=== PATIENT | female | born 1955 | race Caucasian/White ===

== ENCOUNTER 2020-05-31 13:47 | Inpatient (IN) | payer MEDICARE, SELFPAY ==
[2020-05-31] VITALS (17 sets, daily range): BP systolic 124–168; BP diastolic 71–107; PULSE 93–121; RESP 17–25; TEMP 36.7–37.1; O2SAT 88–100; BMI 32.8; BMI 34.8
--- NOTE | 2020-05-31 | LES_PTH ---
PATIENT: YONATHAN YOUNG LOC: [facility] U#:[id number] AGE/SX: 65/F ROOM: [facility] RE05/31/[address]: Dr. Rubén Manzo MD : 1955 BED: 1 DIS: 06/02/2020 SPEC #: [id number] RECD: 06/01/20 08:33 STATUS: NADINE PRAKASH #: [id number] BARRERA: 05/31/20 00:[address]: Rubén Manzo DEPT: SURGICAL PATHOLOGY RECD BY: Troy Martins ENTERED: 06/01/20 08:33 SP TYPE: Lesion OTHR DR: MD Dr. Alyce Spring MD Tissues: Skin of eyelid, NOS Procedures: Elastin Stain (control) Special Stain Group II Surgery Specimen Level IV HEADER OPERATION: Punch biopsy PRE-OP DIAGNOSIS: Possible vasculitis TISSUE SUBMITTED: Skin LLE MICROSCOPIC DIAGNOSIS Left lower extremity skin, punch biopsy: Consistent with leukocytoclastic vasculitis. See comment. AM:lina 06/02/20 COMMENT Sections show reticular and superficial dermis containing a mixed acute and chronic inflammatory cell infiltrateconsisting of primarily neutrophils, lymphocytes, rare eosinophils and rare plasma cells. Two superficial dermal vessels shows fibrinoid degeneration and neutrophilic infiltrates. The mid dermis contains mostly acute inflammation involving perineural tissue. 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 Clinical correlation is suggested. Elastin stain with matched control supports the above diagnosis. Case has been reviewed in consultation with Dr. Singh who concurs with the above diagnosis. IDC:LOEN MICROSCOPIC DESCRIPTION Slides are reviewed. GROSS DESCRIPTION Received is one container labeled with the patient's name and not further designated. The specimen consists of a punch biopsy of two pieces of hoffmann-white to hoffmann-pink skin each measuring 0.3 cm in diameter and 0.1 cm in depth. The entire specimen is submitted in one cassette. / LEON:lina 06/01/20 TC:2 CPT: 19775, 69122
--- NOTE | 2020-05-31 14:03 | EKG12_ITS ---
Test Reason : Blood Pressure : / mmHG Vent. Rate : 108 BPM Atrial Rate : 108 BPM P-R Int : 134 ms QRS Dur : 074 ms QT Int : 330 ms P-R-T Axes : 040 027 036 degrees QTc Int : 442 ms Sinus tachycardia Nonspecific ST abnormality Abnormal ECG Confirmed by DILLON WRIGHT, JAYLEN ([id number]), rewrite editor RAJINDER DRUMMOND ([id number]) on 06/03/2020 10:40:55 AM Referred By: YOKASTA Confirmed By:JAYLEN CARRANZA MD
--- NOTE | 2020-05-31 14:03 | RAD_ITS ---
STUDY: X-RAY CHEST REASON FOR EXAM: Female, 65 years old. Chest tightness. TECHNIQUE: Single AP portable view of the chest. COMPARISON: Prior comparison studies are not available for review at this time. FINDINGS: There is mild stranding/scarring in the right middle lobe. There is no demonstrated pleural abnormality. Normal size heart. Normal mediastinum and yani. Normal visualized pulmonary arteries. There is atherosclerotic calcification of the aortic arch. Normal visualized thoracic spine. Normal visualized ribs, clavicles, and shoulders. There is no demonstrated abnormality of the visualized soft tissue structures of the upper abdomen. RAD/Chest 1 View (Portable) IMPRESSION: No active pulmonary disease. Electronically Signed: Ata Rdz MD at 15:10 EDT Tel , Service support ,
--- NOTE | 2020-05-31 14:03 | ED.VIS.CHEST ---
History of Present Illness Chief Complaint: Chest Pain Informant: Patient Onset: Yesterday Timing: Continuous Quality: Tightness Location: Left Chest Current Severity: Mild Maximum Severity: Mild Worsened By: Exertion Relieved By: Rest Associated Symptoms: Dyspnea, Cough. Negative for: Nausea, Vomiting, Diaphoresis, Fever, Lightheadedness, Palpitations Narrative: Patient states she developed painful red spots on her right face and down into the anterior lateral aspect of her neck. This was about 10 days ago, lasted 2 or 3 days, and then faded and disappeared, but reappeared simultaneously on her distal left lower leg, then spreading to the other side, then up her legs to her abdomen where it has continued to be now. They are painful. Soon after starting on both legs, the areas by the ankles turned to large blisters that are more painful than the other areas. She denies any fevers or chills. She has had chest tightness and increased wheezing for the past 1 or 2 days, she has COPD and chronic dyspnea and chronic cough, the cough is been no worse or different, neither has her sputum production. She states she has had chest tightness when her COPD acts up in the past, however this is unusual because it is only on the left side. It is nonpleuritic. She has no history of DVT or PE. No GI symptoms. No neck stiffness. She had shingles remotely long ago. She is on no blood thinner. She was seen at urgent care last week and again today, today she was sent to the ER. They did not call and discussed with us, so I do not have any information from urgent care. Family member with the patient states they performed some type of blood test that took a couple days to come back. Patient presents during the national coronavirus emergency declaration/pandemic. She denies any known contact with anyone infected with COVID-19. She denies traveling out of the immediate area recently. About 1 month prior to the onset of this, the patient had dental extraction, was on antibiotics for an infection, she states she had about 17 sutures in her gums as a result. That all seemed to heal well afterwards. - Past Medical History (1) COPD (chronic obstructive pulmonary disease) Status: Chronic Past Medical History - Allergies and Home Meds Allergies/Adverse Reactions: Allergies No Known Allergies Allergy (Verified 05/31/20 13:55) Primary Care Physician: Alyce Luis MD [Primary Care Provider] - Lives: With Family Review of Systems General: Denies: Chills, Fever, Sweats Eyes: Denies: Visual changes - bilaterally, Diplopia ENT: Denies: Bilateral ear pain, Rhinorrhea, Sore throat Cardiovascular: Denies: Chest pain, Palpitations Respiratory: Reports: Dyspnea, Cough, Sputum, Dyspnea on exertion. Denies: Orthopnea Gastrointestinal: Denies: Abdominal pain, Nausea, Vomiting, Diarrhea, Melena, Hematochezia Genitourinary: Denies: Dysuria, Hematuria, Frequency Musculoskeletal: Reports: Extremity Pain - Where rash present. Denies: Back pain, Swelling Skin: Reports: Rash. Denies: Abscess Neurological: Denies: Headache, Weakness, Numbness Physical Exam Vital Signs/Narrative: Vital Signs Temp Pulse Resp BP Pulse Ox 05/31/20 14:03 98.6 F 114 H 25 H 158/83 H 97 05/31/20 13:48 98.6 F 114 H 25 H 158/83 H 97 Inital Vital Signs reviewed: Yes General: Well nourished, Well developed, Obese, No Acute Distress Head: Normocephalic, Atraumatic Eyes: Perrl, EOMI ENT: Moist mucous membranes, No rhinorrhea, - - Oropharynx normal, no lesions, erythema, asymmetry Neck: Supple, Nontender, No lymphadenopathy, No JVD Cardiovascular: Regular rate, Regular rhythm, No murmurs, Tachycardia - mild Respiratory: No distress, Chest nontender, Wheezing. Negative for: Rales, Rhonchi Abdomen: Soft, Nontender, Nondistended, Normal bowel sounds Back: Nontender, Normal Inspection Extremities: Tenderness - Both distal lower legs, Edema - Mild, both ankles, associated with wounds Skin: Normal color, No Trauma, Rash - Mostly nontender petechial rash from lower abdominal wall to the feet. More prominent on the lower extremities. Nothing on the back, nothing on the chest or face/neck except for 1 single tender lesion just to the right of the nasal bone on the face that is consistent with a small immature carbuncle that does not look ready to rupture. Distally in the lower extremities, almost symmetric, both ankles and the tops of the feet, are what appear to be wounds that are scabbed, broad-based, not raised, surrounded by blanching erythema that would be consistent with cellulitis. Neurological: Alert, Oriented x3, Cranial nerves II-XII grossly intact, Normal Strength, Normal Sensation, Normal Gait Psychological: Normal affect, Normal Mood Diagnostic/Tx/Re-eval Impressions Chest X-Ray 05/31/20 14:03 IMPRESSION: No active pulmonary disease. Electronically Signed: Ata Rdz MD at 15:10 EDT Tel , Service support , Chest CTA 05/31/20 14:32 IMPRESSION: 1. No pulmonary embolism 2. No acute vascular thoracic pathology. 3. No acute pulmonary findings. 4. Refer to ultrasonography of the lower terminates for more complete risk stratification of a patient at risk for venous thrombi embolic disease. Electronically Signed: Osman Sweeney at 15:21 EDT Tel , Service support , 05/31/20 14:03 Chest 1 View (Portable) [RAD] Stat 05/31/20 14:32 CTA Chest W/WO Contrast [CT] Stat Laboratory Results 05/31/20 05/31/20 05/31/20 13:55 13:55 13:55 WBC 11.9 H RBC 4.46 Hgb 13.1 Hct 41.0 MCV 91.9 MCH 29.4 MCHC 32.0 RDW Std Deviation 41.4 RDW Coeff of Sarah 12.4 Plt Count 437 MPV 10.0 Immature Gran % (Auto) 0.300 Neut % (Auto) 78.2 H Lymph % (Auto) 12.9 L Kimble % (Auto) 7.7 Eos % (Auto) 0.6 Baso % (Auto) 0.3 Absolute Neuts (auto) 9.3 H Absolute Lymphs (auto) 1.53 Nucleated RBC % 0 ESR 29 PT 13.3 INR 1.1 APTT 29.8 Fibrinogen 562 H D-Dimer Quant (PE/DVT) 5.62 H* Sodium 137 Potassium 3.8 Chloride 103 Carbon Dioxide 31.0 Anion Gap 3 L BUN 9 Creatinine 1.01 Estim Creat Clear Calc 53.28 Est GFR (MDRD) Af Amer 71 Est GFR (MDRD) Non-Af 58 L BUN/Creatinine Ratio 8.9 L Glucose 110 H Calcium 8.8 Total Bilirubin 0.50 AST 18 ALT 23 Alkaline Phosphatase 101 Troponin I < 0.015 C-React Prot Ext Range 83.50 H Total Protein 8.3 H Albumin 3.3 Globulin 5.0 H Albumin/Globulin Ratio 0.7 L COVID-19 ([facility]) 05/31/20 14:05 WBC RBC Hgb Hct MCV MCH MCHC RDW Std Deviation RDW Coeff of Sarah Plt Count MPV Immature Gran % (Auto) Neut % (Auto) Lymph % (Auto) Kimble % (Auto) Eos % (Auto) Baso % (Auto) Absolute Neuts (auto) Absolute Lymphs (auto) Nucleated RBC % ESR PT INR APTT Fibrinogen D-Dimer Quant (PE/DVT) Sodium Potassium Chloride Carbon Dioxide Anion Gap BUN Creatinine Estim Creat Clear Calc Est GFR (MDRD) Af Amer Est GFR (MDRD) Non-Af BUN/Creatinine Ratio Glucose Calcium Total Bilirubin AST ALT Alkaline Phosphatase Troponin I C-React Prot Ext Range Total Protein Albumin Globulin Albumin/Globulin Ratio COVID-19 ([facility]) Negative - Rhythm Strip Rhythm Strip: Sinus Tach Rate: 108 Ectopy: None - EKG Initial EKG Interpretation: No Acute Injury Pattern, Sinus Tachycardia, Non-Specific ST Changes Prior: No Prior Treatment: - - albuterol MDI puffs inhaled - Medical Decision Making Given the lab results above, patient does not have DIC or thrombocytopenia. Contrary to this, her fibrinogen is actually high, which may be acting as an acute phase reactant here. She also has a leukocytosis that is mild, a significantly elevated CRP, but an ESR that is within normal limits. The significance of this is unknown. Differential does include vasculitis, and possibly cellulitis in addition, but I do not think treating cellulitis will necessarily cure the petechial rash. Also in the differential diagnosis although quite delayed from her dental procedure, is invasive bacterial infection with bacteremia. Blood cultures were obtained, she was given empiric antibiotics, and I think admitting her to the hospital is indicated. Discussed with hospitalist. With regards to her chest, her symptoms are improved after albuterol, and I think more consistent with her COPD than anything else. Cardiac work-up so far unremarkable. Also of note, the patient has no specific COVID-19 risk, although her significant other is out and around the public and has not been ill, but since this rash is unusual, and resembles infrequent rash that has been associated with COVID-19, the test was sent and run stat, that returned negative. ED Disposition - Plan for ED Patient: Disposition: [facility] Diagnosis: Petechial rash, Cellulitis of both lower extremities, COPD (chronic obstructive pulmonary disease), SIRS (systemic inflammatory response syndrome) Referrals: Alyce Luis MD [Primary Care Provider] -
[2020-05-31 14:10] LABS: Absolute Lymphocyte Count 1.53 X10^3/uL (0.83-4.51); Absolute Neutrophil Count 9.3 X10^3/uL (2.0-7.7); Basophil# 0.04 X10^3/uL; Basophil% 0.3 % (0-1); Eosinophil# 0.07 X10^3/uL; Eosinophils% 0.6 % (0-5); Hemoglobin 13.1 g/dL (12.0-15.0); Lymphocyte # 1.53 X10^3/ul (4.0); Lymphocyte % 12.9 % (19-41); Mean Corpuscular Hgb 29.4 pg (27.0-32.0); Mean Corpuscular Volume 91.9 fL (81-99); Monocyte# 0.91 X10^3/uL; Monocyte% 7.7 % (0-10); NRBC Flagged by Analyzer 0 % (0-5); Neutrophil # 9.27 X10^3/uL (2.7-7.7); Neutrophil % 78.2 % (47-70); Platelet Count 437 K/mm3 (150-450); RBC Distribution Width CV 12.4 % (11.6-14.6); RBC Distribution Width SD 41.4 fl (35.1-43.9); Red Blood Count 4.46 M/mm3 (4.2-5.4); White Blood Count 11.9 K/mm3 (4.4-11.0)
[2020-05-31 14:14] LABS: International Normalized Ratio 1.1; Prothrombin Time (Protime)PT. 13.3 SECONDS (11.7-14.9)
[2020-05-31 14:15] LABS: Partial Thromboplast Time 29.8 Seconds (24.1-36.2)
[2020-05-31 14:16] LABS: Erythrocyte Sedimentation Rate 29 mm/hr (0-30); Fibrinogen 562 mg/dl (203-444)
[2020-05-31 14:27] LABS: ALB/GLOB Ratio 0.7 RATIO (0.9-2.4); AST(SGOT) 18 U/L (15-37); Alanine Aminotransfer ALT/SGPT 23 U/L (13-56); Albumin, Serum 3.3 g/dL (3.2-5.0); Alkaline Phosphatase 101 U/L (45-117); Anion Gap 3 (5-15); BUN 9 mg/dL (7-18); BUN/Creat Ratio 8.9 RATIO (10-20); Calcium,Total 8.8 mg/dL (8.5-10.1); Chloride 103 mmol/L (98-107); Creatinine, Serum 1.01 mg/dL (0.55-1.02); EST Glomerular Filtration Rate 58 mL/min (>60); Est Glom Filt Rate - Afr Amer 71 mL/min (>60); Estimated Creatinine Clearance 53.28 ml/min; Glucose 110 mg/dL (74-106); Potassium 3.8 mmol/L (3.5-5.1); Protein, Total 8.3 g/dL (6.4-8.2); Sodium Level 137 mmol/L (136-145)
[2020-05-31 14:29] LABS: D-Dimer Quantitative (DVT/PE) 5.62 FEU/ug/m (0.27-0.49)
--- NOTE | 2020-05-31 14:32 | CT_ITS ---
STUDY: CTA CHEST REASON FOR EXAM: Female, 65 years old. The chest pain, elevated d-dimer RADIATION DOSAGE (If Supplied By Facility): CTDIvol = ( 12.29 ) mGy, DLP = ( 540.37 ) mGycm TECHNIQUE: The examination was performed with the intravenous administration of 100 ML ISOVUE 370. Post-processing of the angiographic images was performed, with multiplanar reformation and 3D reconstruction. Individualized dose optimization techniques were used for this CT. COMPARISON: None. FINDINGS: Examination is mildly technically suboptimal. Diagnostic information is available. There is no acute or chronic pulmonary embolism. Aorta is of normal caliber. Lungs are clear. There is a simple right lung cyst. There is no pneumothorax, pulmonary edema or pleural effusions. Mediastinal contents are normal. Osseous structures are intact. Abdominal structures are unremarkable. CT/CTA Chest W/WO Contrast IMPRESSION: 1. No pulmonary embolism 2. No acute vascular thoracic pathology. 3. No acute pulmonary findings. 4. Refer to ultrasonography of the lower terminates for more complete risk stratification of a patient at risk for venous thrombi embolic disease. Electronically Signed: Osman Sweeney, at 15:21 EDT Tel , Service support ,
[2020-05-31] MEDS: 0.9% Normal Saline 1,000 ML 999 ML IV (14:57)
[2020-05-31 15:29] LABS: Probe Check PASS; Specimen Processing Control PASS
--- NOTE | 2020-05-31 16:33 | HP.PCM_ITS ---
<Tmaela Mejia - Last Filed: 05/31/20 17:26> Problem List (1) COPD (chronic obstructive pulmonary disease) Status: Chronic (2) History of tobacco abuse Status: Chronic History of Present Illness Date of Admission: 05/31/20 Chief Complaint: Lower extremity rash. The patient is a 65 year old F who presents to the emergency room due to worsening lower extremity rash. Patient states she had a dental extraction due to infection in the middle of March and was placed on antibiotics at that time. She followed up after 1 week and everything appeared stable. She denies ongoing dental or jaw pain. Approximately 10 days ago patient noticed rash on the right side of her face which went away and then began to form on both of her feet and has spread upwards extending to her mid abdomen. Rash began as a pinpoint appearance and has spread significantly. Patient states she has been seen at urgent care twice and had lab test done. She went to urgent care again today and was referred to the emergency room. Over the past 3 days she has developed large darkened areas around her feet and ankles and has had increased pain. Patient reports severe pain and also burning/itching sensation. She denies fever, chills. Reports this morning she began to have increased shortness of breath. Denies cough. Patient was tested for COVID at urgent care which was negative. She reports diarrhea which typically occurs in the morning and then resolves. Denies other associated symptoms. She denies drainage from her lower extremities. Denies new medications. She has a past medical history of COPD and former tobacco use. Denies other past medical history. Past Medical History Past Medical History (Chronic Problems): Chronic Problems COPD (chronic obstructive pulmonary disease) (Chronic) History of tobacco abuse (Chronic) Allergies No Known Allergies Allergy (Verified 05/31/20 13:55) Home Medications: Ambulatory Orders Medication Instructions Recorded Ascorbic Acid [Vitamin C] 1,000 mg PO DAILY 05/31/20 Calcium Carbonate/Vitamin D3 1 ea PO DAILY 05/31/20 [Calcium 600 + Vit D Tablet] Cholecalciferol (Vitamin D3) 2,000 unit PO DAILY 05/31/20 [Vitamin D3] Fluticasone/Umeclidin/Vilanter 1 ea IH Q6H PRN PRN 05/31/20 [Trelegy Ellipta 100-62.5-25] Garlic 1 ea PO DAILY 05/31/20 [place]-3 Fatty Acids/Fish Oil [Fish 1 ea PO DAILY 05/31/20 Oil 1,000 mg Capsule] Vitamin B Complex [B Complex] 1 ea PO DAILY 05/31/20 Surgical History: - - Hysterectomy. Exploratory abdominal surgery. 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 Paternal History Items: - - Denies known paternal medical history including cardiac history. Review of Systems Constitutional: Denies: Chills, Fever, Weight Change HEENT: Denies: Head Aches, Sinus Congestion, Sinus Drainage Cardiovascular: Denies: Chest Pain, Palpitations Respiratory: Reports: Shortness of Breath. Denies: Cough, Sputum production Gastrointestinal: Reports: Diarrhea. Denies: Abdominal Pain, Nausea, Vomiting Genitourinary: Denies: Dysuria Musculoskeletal: Denies: Joint Pain, Joint Tenderness Skin: Reports: - - Bilateral lower extremities extending to mid abdomen. Neurological: Denies: Numbness, Tingling, Focal weakness Psychiatric: Denies: Anxiety, Depression, Homicidal Ideations, Suicidal Ideations Hematologic/ Lymphatic: Denies: Easy Bruising, Easy Bleeding VTE Information - Inpt Only VTE Present on Admission: No VTE Mechan Device Prophylaxis: None VTE Pharm Prophylaxis ordered?: Yes Patient Problems: Active and Suspected Problems Petechial rash (Acute) Cellulitis of both lower extremities (Acute) SIRS (systemic inflammatory response syndrome) (Acute) - Physical Exam Vitals/I&O's: Vital Signs Temp Pulse Resp BP Pulse Ox 98.4 F 116 H 24 H 165/89 H 95 05/31/20 16:11 05/31/20 16:11 05/31/20 16:11 05/31/20 16:11 05/31/20 16:11 Oxygen Delivery Method Room Air Weight: 209 lb 10.554 oz Body Mass Index (BMI) 32.8 Intake and Output for Last 24 Hours 05/29/20 05/30/20 05/31/20 23:59 23:59 23:59 Intake Total 1000 / 1000 Balance 1000 / 1000 General: Alert, Oriented x3, Cooperative HEENT: Atraumatic, PERRLA, EOMI, Normocephalic Neck: Supple, No JVD, Negative Carotid Bruits Lungs: Diminished, Wheezes Cardiovascular: Regular Rhythm, Normal S1, Normal S2, No murmurs, Tachycardic Abdomen: Bowel Sounds Present, Soft, Non Tender, Non-Distended, Obese Extremities: No clubbing, No cyanosis, Edema - BLLE Skin: - - Bilateral lower extremity petechial rash extending to mid abdomen. Bilateral feet and ankle large patches with echar appearance. Musculoskeletal: No Tenderness to Palpation of Joints or Extremities Neurological: Cranial nerves II-XII grossly intact, Neuro grossly intact Psych/Mental Status: Normal Affect, Appropriate Laboratory Results 05/31/20 13:55: WBC 11.9 H, RBC 4.46, Hgb 13.1, Hct 41.0, MCV 91.9, MCH 29.4, MCHC 32.0, RDW Std Deviation 41.4, RDW Coeff of Sarah 12.4, Plt Count 437, MPV 10.0, Immature Gran % (Auto) 0.300, Neut % (Auto) 78.2 H, Lymph % (Auto) 12.9 L, [place] % (Auto) 7.7, Eos % (Auto) 0.6, Baso % (Auto) 0.3, Absolute Neuts (auto) 9.3 H, Absolute Lymphs (auto) 1.53, Nucleated RBC % 0, ESR 29 05/31/20 13:55: PT 13.3, INR 1.1, APTT 29.8, Fibrinogen 562 H, D-Dimer Quant (PE/DVT) 5.62 H* 05/31/20 13:55: Sodium 137, Potassium 3.8, Chloride 103, Carbon Dioxide 31.0, Anion Gap 3 L, BUN 9, Creatinine 1.01, Estim Creat Clear Calc 53.28, Est GFR (MDRD) Af Amer 71, Est GFR (MDRD) Non-Af 58 L, BUN/Creatinine Ratio 8.9 L, Glucose 110 H, Calcium 8.8, Total Bilirubin 0.50, AST 18, ALT 23, Alkaline Phosphatase 101, Troponin I < 0.015, C-React Prot Ext Range 83.50 H, Total Protein 8.3 H, Albumin 3.3, Globulin 5.0 H, Albumin/Globulin Ratio 0.7 L 05/31/20 14:05: COVID-19 ([facility]) Negative Assessment/Plan All Active Problems Petechial rash (Acute) Cellulitis of both lower extremities (Acute) SIRS (systemic inflammatory response syndrome) (Acute) 1. Bilateral lower extremity rash-septic emboli versus vasculitis? Unclear etiology. Punch biopsy performed in ER. Begin IV Ancef. D-dimer elevated. CTA negative for PE. Bilateral duplex ultrasound ordered stat. CRP elevated. ESR normal. IV steroids pending biopsy. Lactic acid ordered. JOSETTE, antistreptolysin, RA, cryoglobulins. Blood cultures pending. 2. SIRS-tachycardia, tachypnea, leukocytosis. Afebrile. Lactic acid ordered, pending. Obtain UA. CTA without acute process. Suspect secondary to #1. 3. Chronic COPD-no exacerbation. Albuterol and DuoNeb aerosols. 4. Former tobacco use-quit 3-1/2 years ago. Encouraged continued cessation. DVT prophylaxis- Lovenox sc This patient was seen by HUNTER Ramirez under the supervision of Dr. Manzo. <Rubén Manzo F - Last Filed: 05/31/20 18:45> History of Present Illness The patient is a 65 year old F [] Past Medical History Allergies No Known Allergies Allergy (Verified 05/31/20 13:55) - Physical Exam Vitals/I&O's: Vital Signs Temp Pulse Resp BP Pulse Ox 98.4 F 116 H 24 H 165/89 H 95 05/31/20 16:11 05/31/20 16:11 05/31/20 16:11 05/31/20 16:11 05/31/20 16:11 Oxygen Delivery Method Room Air Weight: 209 lb 3.499 oz Body Mass Index (BMI) 34.8 Intake and Output for Last 24 Hours 05/29/20 05/30/20 05/31/20 23:59 23:59 23:59 Intake Total 1112 / 1112 Balance 1112 / 1112 Laboratory Results 05/31/20 13:55: WBC 11.9 H, RBC 4.46, Hgb 13.1, Hct 41.0, MCV 91.9, MCH 29.4, MCHC 32.0, RDW Std Deviation 41.4, RDW Coeff of Sarah 12.4, Plt Count 437, MPV 10.0, Immature Gran % (Auto) 0.300, Neut % (Auto) 78.2 H, Lymph % (Auto) 12.9 L, [place] % (Auto) 7.7, Eos % (Auto) 0.6, Baso % (Auto) 0.3, Absolute Neuts (auto) 9.3 H, Absolute Lymphs (auto) 1.53, Nucleated RBC % 0, ESR 29 05/31/20 13:55: PT 13.3, INR 1.1, APTT 29.8, Fibrinogen 562 H, D-Dimer Quant (PE/DVT) 5.62 H* 05/31/20 13:55: Sodium 137, Potassium 3.8, Chloride 103, Carbon Dioxide 31.0, Anion Gap 3 L, BUN 9, Creatinine 1.01, Estim Creat Clear Calc 53.28, Est GFR (MDRD) Af Amer 71, Est GFR (MDRD) Non-Af 58 L, BUN/Creatinine Ratio 8.9 L, Glucose 110 H, Calcium 8.8, Total Bilirubin 0.50, AST 18, ALT 23, Alkaline Phosphatase 101, Troponin I < 0.015, C-React Prot Ext Range 83.50 H, Total Protein 8.3 H, Albumin 3.3, Globulin 5.0 H, Albumin/Globulin Ratio 0.7 L 05/31/20 13:55: Procalcitonin 0.07 05/31/20 14:05: COVID-19 ([facility]) Negative 05/31/20 17:30: Lactic Acid 1.0 05/31/20 17:30: Serum Cryoglobulins Pending 05/31/20 17:30: Rheumatoid Factor < 10.0 05/31/20 17:30: JOSETTE Screen Pending, CARINA-1 Antibody Pending, SS-A/Ro IgG Antibody Pending, SS-B/La IgG Antibody Pending, Sm (Berry) Antibody Pending, MATERIAL DISPATCHER Antibody Pending, Scl-70 Scleroderma Ab Pending, Double Strand DNA Ab Pending, Centromere B Antibody Pending 05/31/20 17:30: Anti-Streptolysin Titr Pending Current Medications Acetaminophen (Tylenol) 650 mg PO Q6H PRN PRN PRN Reason: Pain Score 1-10/Temp > 100.7 F Albuterol/Ipratropium (Duoneb) 3 ml INHALATION Q6HWA.RT JOSE Enoxaparin Sodium (Lovenox) 40 mg SC DAILY JOSE Sodium Chloride () 250 mls @ 15 mls/hr IV .[id number] PRN PRN Reason: Saline Flush Sodium Chloride () 250 mls @ 15 mls/hr IV .[id number] PRN PRN Reason: Additional IVPB Infusion Sodium Chloride () 1,000 mls @ 150 mls/hr IV .[id number] JOSE Ampicillin Sodium/Sulbactam (Sodium 3 gm/ Sodium Chloride) 112 mls @ 150 mls/hr IV Q6 JOSE Melatonin (Melatonin) 3 mg PO QHS PRN PRN PRN Reason: INSOMNIA Methylprednisolone (Solu-Medrol) 40 mg IV Q8 JOSE Morphine Sulfate () 2 mg IV Q3H PRN PRN PRN Reason: Pain Score 6-10/10 Ondansetron HCl (Zofran) 4 mg IV Q8H PRN PRN PRN Reason: NAUSEA/VOMITING Sodium Chloride () 10 - 40 ml IV UD PRN PRN Reason: SALINE FLUSH Addendum: Dr. Manzo I personally examined the patient and reviewed the chart. I agree with the above. 65-year-old female with a history of COPD presents to the hospital chest pain, tachypnea and wheezing. About a month ago she had dental extraction of her lower teeth and then about a week and a half ago she developed a small rash on her legs just isolated lesions and then on Monday she went to an urgent care where she was evaluated and sent home after she had a blood test, that blood test was an ESR which came back elevated at 53. Then 3 days ago her rash significantly worsened in her lower legs. She presents today with no fever but she has tachycardic and tachypneic she is oxygenating well though. There is concern that she had cellulitis versus a vasculitis. She had an elevated d- dimer so CTA of the chest was performed which was negative for PE and did not show any type of pneumonia. Her fibrinogen was also elevated however her platelets were normal. I did perform a 3 mm punch biopsy of 1 of her vascular lesions in her left lower extremity and she was started on Unasyn as well as steroids for her COPD and vasculitis and DuoNeb's. Also transfer her to the ICU as a precaution and continue with aggressive IV fluid. Not autoimmune panel is pending and will also obtain Doppler studies of her lower extremities. She does not have significant edema but the area of the rash around her ankles that is coalesced has some skin sloughing, the rash is also painful. It is nonblanching but it is somewhat raised and nodular. Renal function is stable, her initial troponin was unremarkable and her EKG was nonischemic. Inpatient E&M: 16618 Init Hosp L3
--- NOTE | 2020-05-31 16:36 | VDLE_ITS ---
Reason For Study: Elevated D-dimer RIGHT LEFT GSV is normal. GSV is normal. CFV is compressible, spontaneous, phasic, CFV is compressible, spontaneous, phasic, competent and demonstrates normal competent, and demonstrates normal augmentation. augmentation. FV is compressible, spontaneous, phasic, FV is compressible, spontaneous, phasic, competent and demonstrates normal competent and demonstrates normal augmentation. augmentation. POP V is compressible, spontaneous, phasic, POP V is compressible, spontaneous, phasic, competent and demonstrates normal competent and demonstrates normal augmentation. augmentation. T/P Trunk is compressible. T/P Trunk is compressible. PTV is compressible. PTV is compressible. RT PerV is compressible. LT PerV is compressible. Procedure Exam performed portable in patient room. A preliminary report was called and/or faxed to ICU. Interpretation Summary No evidence for acute deep venous thrombosis bilateral lower extremities with patent and compressible bilateral great saphenous veins. Ordering Physician: Tamela Meija Referring Physician: Alyce Luis Performed By: Iva Ogden RVT
[2020-05-31] MEDS: 0.9% Normal Saline 1,000 ML 150 ML IV (17:45)
[2020-05-31 18:17] LABS: Rheumatoid Factor < 10.0 IU/mL (<15)
[2020-05-31 18:32] LABS: Procalcitonin 0.07 ng/mL (0.00-0.09)
[2020-05-31] MEDS: Ipratropium/Albuterol Sulfate 3 ML AMPUL.NEB INHALATION (18:59)
[2020-05-31 19:06] LABS: Pathology Skin Biopsy SEE PATHOLOGY REPORT
[2020-05-31] MEDS: oxyCODONE 5 MG Tablet PO (20:51)
[2020-06-01] VITALS (23 sets, daily range): BP systolic 122–168; BP diastolic 64–93; PULSE 76–121; RESP 13–21; TEMP 36.6–37.3; O2SAT 93–96
[2020-06-01] MEDS: 0.9% Normal Saline 1,000 ML 150 ML IV ×4 (00:10→23:11)
[2020-06-01] MEDS: oxyCODONE 5 MG Tablet PO (04:37)
[2020-06-01 04:46] LABS: Absolute Lymphocyte Count 0.61 X10^3/uL (0.83-4.51); Absolute Neutrophil Count 7.6 X10^3/uL (2.0-7.7); Basophil# 0.01 X10^3/uL; Basophil% 0.1 % (0-1); Hemoglobin 11.2 g/dL (12.0-15.0); Lymphocyte # 0.61 X10^3/ul (4.0); Lymphocyte % 7.3 % (19-41); Mean Corpuscular Hgb 29.6 pg (27.0-32.0); Mean Corpuscular Volume 92.3 fL (81-99); Monocyte% 1.2 % (0-10); NRBC Flagged by Analyzer 0 % (0-5); Neutrophil # 7.63 X10^3/uL (2.7-7.7); Neutrophil % 90.9 % (47-70); Platelet Count 337 K/mm3 (150-450); RBC Distribution Width CV 12.6 % (11.6-14.6); RBC Distribution Width SD 42.5 fl (35.1-43.9); Red Blood Count 3.79 M/mm3 (4.2-5.4); White Blood Count 8.4 K/mm3 (4.4-11.0)
[2020-06-01 04:59] LABS: Anion Gap 4 (5-15); BUN 9 mg/dL (7-18); BUN/Creat Ratio 10.9 RATIO (10-20); Calcium,Total 8.1 mg/dL (8.5-10.1); Chloride 109 mmol/L (98-107); Creatinine, Serum 0.83 mg/dL (0.55-1.02); EST Glomerular Filtration Rate 73 mL/min (>60); Est Glom Filt Rate - Afr Amer 89 mL/min (>60); Estimated Creatinine Clearance 59.99 ml/min; Glucose 153 mg/dL (74-106); Potassium 4.8 mmol/L (3.5-5.1); Sodium Level 140 mmol/L (136-145)
--- NOTE | 2020-06-01 05:18 | NURSING ---
ed re chronic illness deferred till acute illness resolving
[2020-06-01] MEDS: Ipratropium/Albuterol Sulfate 3 ML AMPUL.NEB INHALATION ×3 (06:44→20:10)
--- NOTE | 2020-06-01 10:18 | NURSING ---
Was asked to assess bilateral lower legs. Pt states she had a dental procedure in March and all the lower teeth were removed. pt states she has an infection and the dentist had stated she did not need an antibiotic. pt states the dentist had said antibiotics are overused. pt had developed 3 small reddened areas to the right cheek/neck area. states those went away fairly quickly. pt then developed a rash to the lower legs. rash is a petechiae type rash with some darker areas near the ankles. asked if pt has been experiencing any joint pain and patient states only in ankles. states there is some discomfort when standing, but appears to be greatly improved from yesterday. pt states the redness and discomfort is much improved. steroids and antibiotics had been started yesterday. appears to be some sort of vasculitis. biopsy is pending. pt states she had been applying some ointment to the lower legs. pt unsure of name. will leave legs WILLIAM and dry at this time. does not appear to need debridement. will continue to monitor. see photos.
--- NOTE | 2020-06-01 10:35 | NURSING ---
skin photo: left lower leg
--- NOTE | 2020-06-01 10:36 | NURSING ---
skin photo: left lower leg
--- NOTE | 2020-06-01 10:36 | NURSING ---
skin photo: right lower leg
--- NOTE | 2020-06-01 10:37 | NURSING ---
skin photo: right lower leg
--- NOTE | 2020-06-01 10:50 | PCM.CONS.PUL ---
Problem List (1) COPD (chronic obstructive pulmonary disease) Status: Chronic Qualifiers: COPD type: emphysema Emphysema type: centrilobular Qualified Code(s): J43.2 - Centrilobular emphysema (2) Petechial rash Status: Acute (3) SIRS (systemic inflammatory response syndrome) Status: Acute (4) History of tobacco abuse Status: Chronic Reason for Consult Date of Consultation: 06/01/20 Reason for Consultation: Concern for vasculitis History of Present Illness: The patient is a 65 year old F, with past medical history listed below, who presented to [facility] on 05/31/2020 secondary to a painful lower extremity rash. Patient reportedly had dental work approximately 2 weeks ago and was placed on antibiotics. Patient states that she developed a petechial type rash on her neck and legs. These have convalesced into dark purple patches that were painful. Patient had noted some blisters on her ankles, but denied any fevers or chills. Patient had reported some loose bowel movements, chest tightness and increased wheezing for the previous 1 to 2 days. Patient reportedly does carry a diagnosis of COPD, but she is unaware of the severity. Patient describes chest pain with cough, but states this is nonpleuritic. Patient reportedly presented to the urgent care several times without improvement. Patient denied any neck stiffness, shingles or improvement in rash. Patient does not carry a diagnosis of penicillin allergy in the past. Patient did have sutures in her gums associated with her dental extraction. In the ER, patient was noted to be saturating well on nasal cannula oxygen. Patient did have some wheezing on exam and tachycardia at 114 bpm. Of note, patient had a petechial rash on the lower abdominal wall to the feet. Patient was noted to have symmetrical swelling of both ankles and feet. Chest x-ray was unremarkable and CTA of the chest showed no PE, but did have emphysematous changes on my review. Patient's laboratory work-up showed a leukocytosis of 11.9, elevated d-dimer at 5.62 and a creatinine of 1.01. CRP was elevated to 83.5 and COVID-19 was negative. Patient was given albuterol MDI and admitted to the intensive care unit. Patient did have a punch biopsy obtained. Since being in the intensive care unit, patient reports she has had 1 loose bowel movement. Patient states that she has had diarrhea intermittently for the last week or so. Patient did state that the diarrhea started at the same time as the petechial rash. Patient reports subjective improvement in the pain of the lower extremities. Patient has not had any fever overnight and has remained hemodynamically stable. Patient was on minimal nasal cannula oxygen to help with sleep. Review of systems otherwise negative from a constitutional, HEENT, respiratory, cardiovascular, GI, genitourinary, musculoskeletal, skin, neurologic, psychiatric and hematologic system unless stated above. Past Medical History Past Medical History (Chronic Problems): Chronic Problems COPD (chronic obstructive pulmonary disease) (Chronic) History of tobacco abuse (Chronic) Allergies No Known Allergies Allergy (Verified 05/31/20 13:55) Home Medications: Ambulatory Orders Medication Instructions Recorded Ascorbic Acid [Vitamin C] 1,000 mg PO DAILY 05/31/20 Calcium Carbonate/Vitamin D3 1 ea PO DAILY 05/31/20 [Calcium 600 + Vit D Tablet] Cholecalciferol (Vitamin D3) 2,000 unit PO DAILY 05/31/20 [Vitamin D3] Fluticasone/Umeclidin/Vilanter 1 ea IH Q6H PRN PRN 05/31/20 [Trelegy Ellipta 100-62.5-25] Garlic 1 ea PO DAILY 05/31/20 [place]-3 Fatty Acids/Fish Oil [Fish 1 ea PO DAILY 05/31/20 Oil 1,000 mg Capsule] Vitamin B Complex [B Complex] 1 ea PO DAILY 05/31/20 Surgical History: - - Hysterectomy. Exploratory abdominal surgery. 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 Paternal History Items: - - Denies known paternal medical history including cardiac history. Review of Systems Comment: See HPI Patient Problems: Active and Suspected Problems Petechial rash (Acute) Cellulitis of both lower extremities (Acute) SIRS (systemic inflammatory response syndrome) (Acute) Objective: CTA of the chest was personally reviewed. This did not show any pulmonary emboli, but did have diffuse emphysematous changes of the upper lobes. Lower extremity Dopplers are not suggestive of a DVT. Patient does not have an echocardiogram or pulmonary function test available for review at this time - Physical Exam Vitals/I&O's: Vital Signs Temp Pulse Resp BP Pulse Ox 37.2 C 104 H 21 H 128/64 H 94 06/01/20 04:00 06/01/20 10:00 06/01/20 10:00 06/01/20 10:00 06/01/20 10:00 Oxygen Flow Rate (L/min) 2 Oxygen Delivery Method Nasal Cannula Weight: 95.8 kg Body Mass Index (BMI) 34.8 Intake and Output for Last 24 Hours 05/30/20 05/31/20 06/01/20 23:59 23:59 23:59 Intake Total 2016 1431.5 / 1431.5 Output Total 1450 / 1450 Balance 2016 -18.5 / -18.5 General: Alert, Oriented x3, Cooperative, - - Mild distress secondary to lower extremity pain. Obese. Appears stated age. HEENT: Atraumatic, PERRLA, EOMI, Normocephalic, - - No scleral icterus or injection noted Oral: Moist Mucosa, No Gingival or Mucosal Lesions/ Ulcerations, - - No oral or perioral lesions appreciated. Neck: Supple, No JVD, No Nodes, No Nuchal Rigidity, Trachea Midline Lungs: No rhonchi, No rales, Diminished, Wheezes - Sporadic Cardiovascular: Regular rate, Regular Rhythm, Normal S1, Normal S2, No murmurs, No rub noted, No Gallop Abdomen: Bowel Sounds Present, Soft, Non Tender, Non-Distended, Obese Extremities: No clubbing, No cyanosis, Edema - Bilateral lower extremities Skin: - - Palpable purpura noted inferiorly with progression to petechial rash on the legs extending up to the umbilicus. Tender to touch. Purpura do have surrounding erythema that blanches with palpation Musculoskeletal: Tenderness - Palpation of the lower extremities Lymphatic: No Cervical, Supraclavicular, or Inguinal Adenopathy Neurological: Cranial nerves II-XII grossly intact, Neuro grossly intact, Motor Exam 5/5 strength throughout Psych/Mental Status: Alert and oriented to time, place, person, mood and affect Laboratory Results 05/31/20 13:55: WBC 11.9 H, RBC 4.46, Hgb 13.1, Hct 41.0, MCV 91.9, MCH 29.4, MCHC 32.0, RDW Std Deviation 41.4, RDW Coeff of Sarah 12.4, Plt Count 437, MPV 10.0, Immature Gran % (Auto) 0.300, Neut % (Auto) 78.2 H, Lymph % (Auto) 12.9 L, Bosque % (Auto) 7.7, Eos % (Auto) 0.6, Baso % (Auto) 0.3, Absolute Neuts (auto) 9.3 H, Absolute Lymphs (auto) 1.53, Nucleated RBC % 0, ESR 29 05/31/20 13:55: PT 13.3, INR 1.1, APTT 29.8, Fibrinogen 562 H, D-Dimer Quant (PE/DVT) 5.62 H* 05/31/20 13:55: Sodium 137, Potassium 3.8, Chloride 103, Carbon Dioxide 31.0, Anion Gap 3 L, BUN 9, Creatinine 1.01, Estim Creat Clear Calc 53.28, Est GFR (MDRD) Af Amer 71, Est GFR (MDRD) Non-Af 58 L, BUN/Creatinine Ratio 8.9 L, Glucose 110 H, Calcium 8.8, Total Bilirubin 0.50, AST 18, ALT 23, Alkaline Phosphatase 101, Troponin I < 0.015, C-React Prot Ext Range 83.50 H, Total Protein 8.3 H, Albumin 3.3, Globulin 5.0 H, Albumin/Globulin Ratio 0.7 L 05/31/20 13:55: Procalcitonin 0.07 05/31/20 14:05: COVID-19 ([facility]) Negative 05/31/20 17:30: Lactic Acid 1.0 05/31/20 17:30: Serum Cryoglobulins Pending 05/31/20 17:30: Rheumatoid Factor < 10.0 05/31/20 17:30: JOSETTE Screen Pending, CARINA-1 Antibody Pending, SS-A/Ro IgG Antibody Pending, SS-B/La IgG Antibody Pending, Sm (Berry) Antibody Pending, HEAD OF COMMISSION DEPARTMENT Antibody Pending, Scl-70 Scleroderma Ab Pending, Double Strand DNA Ab Pending, Centromere B Antibody Pending 05/31/20 17:30: Anti-Streptolysin Titr Pending 06/01/20 04:30: WBC 8.4, RBC 3.79 L, Hgb 11.2 L, Hct 35.0 L, MCV 92.3, MCH 29.6, MCHC 32.0, RDW Std Deviation 42.5, RDW Coeff of Sarah 12.6, Plt Count 337, MPV 10.0, Immature Gran % (Auto) 0.500, Neut % (Auto) 90.9 H, Lymph % (Auto) 7.3 L, Bosque % (Auto) 1.2, Eos % (Auto) 0.0, Baso % (Auto) 0.1, Absolute Neuts (auto) 7.6, Absolute Lymphs (auto) 0.61 L, Nucleated RBC % 0 06/01/20 04:30: Sodium 140, Potassium 4.8, Chloride 109 H, Carbon Dioxide 27.0, Anion Gap 4 L, BUN 9, Creatinine 0.83, Estim Creat Clear Calc 59.99, Est GFR (MDRD) Af Amer 89, Est GFR (MDRD) Non-Af 73, BUN/Creatinine Ratio 10.9, Glucose 153 H, Calcium 8.1 L Current Medications Acetaminophen (Tylenol) 650 mg PO Q6H PRN PRN PRN Reason: Pain Score 1-10/Temp > 100.7 F Albuterol/Ipratropium (Duoneb) 3 ml INHALATION Q6HWA.RT [facility] Last Admin: 06/01/20 06:44 Dose: 3 ml Documented by: Enoxaparin Sodium (Lovenox) 40 mg SC DAILY [facility] Sodium Chloride () 250 mls @ 15 mls/hr IV .[id number] PRN PRN Reason: Saline Flush Sodium Chloride () 250 mls @ 15 mls/hr IV .[id number] PRN PRN Reason: Additional IVPB Infusion Sodium Chloride () 1,000 mls @ 150 mls/hr IV .[id number] [facility] Last Admin: 06/01/20 08:04 Dose: 150 mls/hr Documented by: Ampicillin Sodium/Sulbactam (Sodium 3 gm/ Sodium Chloride) 112 mls @ 150 mls/hr IV Q6 [facility] Last Infusion: 06/01/20 08:05 Dose: Infused Documented by: Melatonin (Melatonin) 3 mg PO QHS PRN PRN PRN Reason: INSOMNIA Methylprednisolone (Solu-Medrol) 40 mg IV Q8 [facility] Last Admin: 06/01/20 06:16 Dose: 40 mg Documented by: Morphine Sulfate () 2 mg IV Q3H PRN PRN PRN Reason: Pain Score 6-10/10 Ondansetron HCl (Zofran) 4 mg IV Q8H PRN PRN PRN Reason: NAUSEA/VOMITING Oxycodone HCl (Oxyir) 5 mg PO Q6H PRN PRN PRN Reason: Pain Score 6-10/10 Last Admin: 06/01/20 04:37 Dose: 5 mg Documented by: Sodium Chloride () 10 - 40 ml IV UD PRN PRN Reason: SALINE FLUSH Clinical Impression(s) from Imaging Studies Chest X-Ray 05/31/20 14:03 IMPRESSION: No active pulmonary disease. Electronically Signed: Ata Rdz MD at 15:10 EDT Tel , Service support , Chest CTA 05/31/20 14:32 IMPRESSION: 1. No pulmonary embolism 2. No acute vascular thoracic pathology. 3. No acute pulmonary findings. 4. Refer to ultrasonography of the lower terminates for more complete risk stratification of a patient at risk for venous thrombi embolic disease. Electronically Signed: Osman Sweeney at 15:21 EDT Tel , Service support , Assessment/Plan All Active Problems Petechial rash (Acute) Cellulitis of both lower extremities (Acute) SIRS (systemic inflammatory response syndrome) (Acute) RECOMMENDATIONS: 1. Continue steroid therapy 2. Scheduled bronchodilators 3. Wean oxygen as tolerated 4. Obtain stool studies 5. Await skin biopsy 6. Likely okay to leave the intensive care unit IMPRESSIONS: 1. 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 Patient did have a punch biopsy obtained prior to initiation of steroid therapy. CRP is elevated and patient has reported some improvement following steroid therapy. Patient is not reporting vesicle formation previously. Rheumatologic work-up has been sent. Would send stool studies for possible Shiga toxin. Patient will likely require some coverage for hyperglycemia given steroid therapy. Patient does not have any oral lesions to be consistent with Parenll-Teo syndrome. Other differential would include scalded skin syndrome, dress syndrome and TEN syndrome. Possible involvement of dermatology. 2. COPD Patient is no longer smoking, but does have significant emphysematous changes noted on CT scan of the chest. Reasonable to continue with DuoNeb and albuterol aerosols. Steroids may help situation. Patient will have compromised pulmonary mechanics secondary to lower extremity pain. Patient should have outpatient work-up for quantification clarification of lung function and evaluation for need for supplemental oxygen. Patient is on triple therapy as an outpatient, but it is unclear if this was following pulmonary function testing for COPD/asthma overlap syndrome. Overnight oxygen may be secondary to untreated sleep apnea versus advanced COPD. Given negative lower extremity Dopplers and CTA of the chest, pulmonary embolism is unlikely. 3. SIRS secondary to #1 Agree with empiric antibiotics for now. Autoimmune work-up has been ordered and punch biopsy is currently being processed. UA has been ordered, but no results are available. 4. Advanced age/obesity Complicates care, management, recovery and prognosis. Unclear if patient follows regularly with her physician. Inpatient E&M: [id number] Init Hosp L3
[2020-06-01] MEDS: Enoxaparin 40 MG/0.4 ML Syringe SC (11:32)
--- NOTE | 2020-06-01 13:12 | CASEMGMT ---
RN CM Assessment Note Introduced role of CM to patient in room. Patient is sitting in chair, able to participate in assessment. She states she is independent @ home, does not use any DME including oxygen. Her and grandson are able to assist if needed. No concerns voiced re: discharge needs. Presentation: worsening lower extremity rash, darkened areas and pain. Diagnosis: unclear etiology-Septic emboli versus vasculitis PCP: Dr. Luis Specialists: Dr. Palmer- pulmonology. Patient has appointment next month Insurance: [facility] Preferred Pharmacy: [place], [place] Prescription Benefit: yes LNOK: , [place] Living Arrangements: Lives independently with her who is able to assist. Pt has 2 story home with basement. First floor set up for bedroom and bathroom. Tranportation: Patient drives, but family is able to assist if needed. DME: none. Pt will have get shower chair and cane if needed. Patient states her friend has a cane she can use. -If home oxygen is needed: [facility]. HHC: none. Declining Home Health at this time. States she has a nurse through her insurance she can call if she has any needs at home. SNF: none Patient DC Goals: Home on discharge DC Plan: Anticipate Home on discharge. Pt is currently on 2L [place]. Will need to follow for home oxygen needs. Pt is former smoker and has COPD history. CM available for discharge planning coordination. Contact CM for any concerns/needs that may arise. Mannie DOMINGUEZ RN ACM
--- NOTE | 2020-06-01 13:35 | PN_ITS ---
<Tamela Mejia - Last Filed: 06/01/20 13:50> Patient Problems: Active and Suspected Problems Petechial rash (Acute) Cellulitis of both lower extremities (Acute) SIRS (systemic inflammatory response syndrome) (Acute) Subjective: Patient seen and examined. Feels lower extremity redness and rash is improving. Denies further chest tightness or shortness of breath. - Physical Exam Vitals/I&O's: Vital Signs Temp Pulse Resp BP Pulse Ox 97.9 F 95 18 168/87 H 95 06/01/20 11:00 06/01/20 13:17 06/01/20 13:17 06/01/20 11:00 06/01/20 11:00 Oxygen Flow Rate (L/min) 2 Oxygen Delivery Method Nasal Cannula Weight: 211 lb 3.245 oz Body Mass Index (BMI) 34.8 Intake and Output for Last 24 Hours 05/30/20 05/31/20 06/01/20 23:59 23:59 23:59 Intake Total 2016 2063.5 / 206.5 Output Total 1849 / 1849 Balance 2016 213.5 / 213.5 General: Alert, Oriented x3, Cooperative HEENT: Atraumatic, PERRLA, EOMI, Normocephalic Neck: Supple, No JVD, Negative Carotid Bruits Lungs: Clear to auscultation, Diminished Cardiovascular: Regular rate, No murmurs Abdomen: Bowel Sounds Present, Soft, Non Tender, Non-Distended Extremities: No clubbing, No cyanosis, No edema, Capillary Refill Less than 3 Seconds Skin: - - Bilateral lower extremity petechial rash extending to mid abdomen. Bilateral feet and ankle large patches with echar appearance. Improved from prior assessment. Musculoskeletal: No Tenderness to Palpation of Joints or Extremities Neurological: Cranial nerves II-XII grossly intact, Neuro grossly intact Psych/Mental Status: Normal Affect, Appropriate Laboratory Results 05/31/20 13:55: WBC 11.9 H, RBC 4.46, Hgb 13.1, Hct 41.0, MCV 91.9, MCH 29.4, MCHC 32.0, RDW Std Deviation 41.4, RDW Coeff of Sarah 12.4, Plt Count 437, MPV 10.0, Immature Gran % (Auto) 0.300, Neut % (Auto) 78.2 H, Lymph % (Auto) 12.9 L, [place] % (Auto) 7.7, Eos % (Auto) 0.6, Baso % (Auto) 0.3, Absolute Neuts (auto) 9.3 H, Absolute Lymphs (auto) 1.53, Nucleated RBC % 0, ESR 29 05/31/20 13:55: PT 13.3, INR 1.1, APTT 29.8, Fibrinogen 562 H, D-Dimer Quant (PE/DVT) 5.62 H* 05/31/20 13:55: Sodium 137, Potassium 3.8, Chloride 103, Carbon Dioxide 31.0, Anion Gap 3 L, BUN 9, Creatinine 1.01, Estim Creat Clear Calc 53.28, Est GFR (MDRD) Af Amer 71, Est GFR (MDRD) Non-Af 58 L, BUN/Creatinine Ratio 8.9 L, Glucose 110 H, Calcium 8.8, Total Bilirubin 0.50, AST 18, ALT 23, Alkaline Phosphatase 101, Troponin I < 0.015, C-React Prot Ext Range 83.50 H, Total Protein 8.3 H, Albumin 3.3, Globulin 5.0 H, Albumin/Globulin Ratio 0.7 L 05/31/20 13:55: Procalcitonin 0.07 05/31/20 14:05: COVID-19 ([facility]) Negative 05/31/20 17:30: Lactic Acid 1.0 05/31/20 17:30: Serum Cryoglobulins Pending 05/31/20 17:30: Rheumatoid Factor < 10.0 05/31/20 17:30: JOSETTE Screen Pending, CARINA-1 Antibody Pending, SS-A/Ro IgG Antibody Pending, SS-B/La IgG Antibody Pending, Sm (Berry) Antibody Pending, ELEVATOR RUNNER Antibody Pending, Scl-70 Scleroderma Ab Pending, Double Strand DNA Ab Pending, Centromere B Antibody Pending 05/31/20 17:30: Anti-Streptolysin Titr Pending 06/01/20 04:30: WBC 8.4, RBC 3.79 L, Hgb 11.2 L, Hct 35.0 L, MCV 92.3, MCH 29.6, MCHC 32.0, RDW Std Deviation 42.5, RDW Coeff of Sarah 12.6, Plt Count 337, MPV 10.0, Immature Gran % (Auto) 0.500, Neut % (Auto) 90.9 H, Lymph % (Auto) 7.3 L, [place] % (Auto) 1.2, Eos % (Auto) 0.0, Baso % (Auto) 0.1, Absolute Neuts (auto) 7.6, Absolute Lymphs (auto) 0.61 L, Nucleated RBC % 0 06/01/20 04:30: Sodium 140, Potassium 4.8, Chloride 109 H, Carbon Dioxide 27.0, Anion Gap 4 L, BUN 9, Creatinine 0.83, Estim Creat Clear Calc 59.99, Est GFR (MDRD) Af Amer 89, Est GFR (MDRD) Non-Af 73, BUN/Creatinine Ratio 10.9, Glucose 153 H, Calcium 8.1 L Current Medications Acetaminophen (Tylenol) 650 mg PO Q6H PRN PRN PRN Reason: Pain Score 1-10/Temp > 100.7 F Albuterol/Ipratropium (Duoneb) 3 ml INHALATION Q6HWA.RT [facility] Last Admin: 06/01/20 13:16 Dose: 3 ml Documented by: Enoxaparin Sodium (Lovenox) 40 mg SC DAILY [facility] Last Admin: 06/01/20 11:32 Dose: 40 mg Documented by: Sodium Chloride () 250 mls @ 15 mls/hr IV .[id number] PRN PRN Reason: Saline Flush Sodium Chloride () 250 mls @ 15 mls/hr IV .[id number] PRN PRN Reason: Additional IVPB Infusion Sodium Chloride () 1,000 mls @ 150 mls/hr IV .Q6H40M [facility] Last Infusion: 06/01/20 12:18 Dose: 150 mls/hr Documented by: Ampicillin Sodium/Sulbactam (Sodium 3 gm/ Sodium Chloride) 112 mls @ 150 mls/hr IV Q6 [facility] Last Infusion: 06/01/20 12:19 Dose: Infused Documented by: Melatonin (Melatonin) 3 mg PO QHS PRN PRN PRN Reason: INSOMNIA Methylprednisolone (Solu-Medrol) 40 mg IV Q8 [facility] Last Admin: 06/01/20 06:16 Dose: 40 mg Documented by: Morphine Sulfate () 2 mg IV Q3H PRN PRN PRN Reason: Pain Score 6-10/10 Ondansetron HCl (Zofran) 4 mg IV Q8H PRN PRN PRN Reason: NAUSEA/VOMITING Oxycodone HCl (Oxyir) 5 mg PO Q6H PRN PRN PRN Reason: Pain Score 6-10/10 Last Admin: 06/01/20 04:37 Dose: 5 mg Documented by: Sodium Chloride () 10 - 40 ml IV UD PRN PRN Reason: SALINE FLUSH Medical Necessity - Tobacco Use Smoking Status: Former smoker Assessment/Plan All Active Problems Petechial rash (Acute) Cellulitis of both lower extremities (Acute) SIRS (systemic inflammatory response syndrome) (Acute) 1. Bilateral lower extremity rash-possible Henoch-Larisa?nlein purpura/vasculitis, however definitive etiology unclear. Punch biopsy results pending. Continue IV Ancef empirically. D-dimer elevated. CTA negative for PE. Bilateral duplex ultrasound negative for DVT. CRP elevated. ESR normal. Lactic acid normal. Autoimmune labs pending. Continue IV Solu-Medrol. Rash appears to be improving from prior assessment. Patient reports improvement in pain as well. Wound RN consult. 2. SIRS-tachycardia, tachypnea, leukocytosis. Afebrile. Lactic acid normal. Urine culture pending. CTA without acute process. Suspect secondary to #1. 3. Diarrhea-enteric pathogen panel pending. 4. Chronic COPD-no exacerbation. Albuterol and DuoNeb aerosols. 5. Former tobacco use-quit 3-1/2 years ago. Encouraged continued cessation. DVT prophylaxis- Lovenox sc This patient was seen by HUNTER Ramirez under the supervision of Dr. Manzo. <Rubén Manzo F - Last Filed: 06/01/20 15:15> - Physical Exam Vitals/I&O's: Vital Signs Temp Pulse Resp BP Pulse Ox 99.1 F 121 H 18 153/77 H 96 06/01/20 14:17 06/01/20 14:33 06/01/20 14:17 06/01/20 14:17 06/01/20 14:23 Oxygen Flow Rate (L/min) 2 Oxygen Delivery Method Room Air Weight: 211 lb 3.245 oz Body Mass Index (BMI) 34.8 Intake and Output for Last 24 Hours 05/30/20 05/31/2006/01/20 23:59 23:59 23:59 Intake Total 2016 2063.5 / 2062.5 Output Total 185 / 1849 Balance 2016 213.5 / 213.5 Laboratory Results 05/31/20 13:55: Procalcitonin 0.07 05/31/20 14:05: COVID-19 ([facility]) Negative 05/31/20 17:30: Lactic Acid 1.0 05/31/20 17:30: Serum Cryoglobulins Pending 05/31/20 17:30: Rheumatoid Factor < 10.0 05/31/20 17:30: JOSETTE Screen Pending, CARINA-1 Antibody Pending, SS-A/Ro IgG Antibody Pending, SS-B/La IgG Antibody Pending, Sm (Berry) Antibody Pending, ELEVATOR RUNNER Antibody Pending, Scl-70 Scleroderma Ab Pending, Double Strand DNA Ab Pending, Centromere B Antibody Pending 05/31/20 17:30: c-ANCA Antibody Pending, p-ANCA Antibody Pending, Complement C3 Pending, Complement C4 Pending, Anti-Streptolysin Titr Pending 06/01/20 04:30: WBC 8.4, RBC 3.79 L, Hgb 11.2 L, Hct 35.0 L, MCV 92.3, MCH 29.6, MCHC 32.0, RDW Std Deviation 42.5, RDW Coeff of Sarah 12.6, Plt Count 337, MPV 10.0, Immature Gran % (Auto) 0.500, Neut % (Auto) 90.9 H, Lymph % (Auto) 7.3 L, [place] % (Auto) 1.2, Eos % (Auto) 0.0, Baso % (Auto) 0.1, Absolute Neuts (auto) 7.6, Absolute Lymphs (auto) 0.61 L, Nucleated RBC % 0 06/01/20 04:30: Sodium 140, Potassium 4.8, Chloride 109 H, Carbon Dioxide 27.0, Anion Gap 4 L, BUN 9, Creatinine 0.83, Estim Creat Clear Calc 59.99, Est GFR (MDRD) Af Amer 89, Est GFR (MDRD) Non-Af 73, BUN/Creatinine Ratio 10.9, Glucose 153 H, Calcium 8.1 L Current Medications Acetaminophen (Tylenol) 650 mg PO Q6H PRN PRN PRN Reason: Pain Score 1-10/Temp > 100.7 F Albuterol/Ipratropium (Duoneb) 3 ml INHALATION Q6HWA.RT [facility] Last Admin: 06/01/20 13:16 Dose: 3 ml Documented by: Enoxaparin Sodium (Lovenox) 40 mg SC DAILY [facility] Last Admin: 06/01/20 11:32 Dose: 40 mg Documented by: Sodium Chloride () 250 mls @ 15 mls/hr IV .[id number] PRN PRN Reason: Saline Flush Sodium Chloride () 250 mls @ 15 mls/hr IV .[id number] PRN PRN Reason: Additional IVPB Infusion Sodium Chloride () 1,000 mls @ 150 mls/hr IV .Q6H40M [facility] Last Infusion: 06/01/20 12:18 Dose: 150 mls/hr Documented by: Ampicillin Sodium/Sulbactam (Sodium 3 gm/ Sodium Chloride) 112 mls @ 150 mls/hr IV Q6 [facility] Last Infusion: 06/01/20 12:19 Dose: Infused Documented by: Melatonin (Melatonin) 3 mg PO QHS PRN PRN PRN Reason: INSOMNIA Methylprednisolone (Solu-Medrol) 40 mg IV Q8 [facility] Last Admin: 06/01/20 13:42 Dose: 40 mg Documented by: Morphine Sulfate () 2 mg IV Q3H PRN PRN PRN Reason: Pain Score 6-10/10 Ondansetron HCl (Zofran) 4 mg IV Q8H PRN PRN PRN Reason: NAUSEA/VOMITING Oxycodone HCl (Oxyir) 5 mg PO Q6H PRN PRN PRN Reason: Pain Score 6-10/10 Last Admin: 06/01/20 04:37 Dose: 5 mg Documented by: Sodium Chloride () 10 - 40 ml IV UD PRN PRN Reason: SALINE FLUSH Addendum: Dr. Manzo I personally examined the patient and reviewed the chart. I agree with the above. 65-year-old female with a history of COPD presents to the hospital chest pain, tachypnea and wheezing. About a month ago she had dental extraction of her lower teeth and then about a week and a half ago she developed a small rash on her legs just isolated lesions and then on Monday she went to an urgent care where she was evaluated and sent home after she had a blood test, that blood test was an ESR which came back elevated at 53. Then 3 days ago her rash significantly worsened in her lower legs. She presents today with no fever but she has tachycardic and tachypneic she is oxygenating well though. There is concern that she had cellulitis versus a vasculitis. She had an elevated d- dimer so CTA of the chest was performed which was negative for PE and did not show any type of pneumonia. Her fibrinogen was also elevated however her pl atelets were normal. I did perform a 3 mm punch biopsy of 1 of her vascular lesions in her left lower extremity and she was started on Unasyn as well as steroids for her COPD and vasculitis and DuoNeb's. Also transfer her to the ICU as a precaution and continue with aggressive IV fluid. Not autoimmune panel is pending and will also obtain Doppler studies of her lower extremities. She does not have significant edema but the area of the rash around her ankles that is coalesced has some skin sloughing, the rash is also painful. It is nonblanching but it is somewhat raised and nodular. Renal function is stable, her initial troponin was unremarkable and her EKG was nonischemic. 06/01/2020: She is doing much better today, home mortgage disclosure act specialist agrees that this appears to be a vasculitis. We will continue with steroids and will add on to previous lab work complement levels as well as C&P-ANCA's for further classification stratification. Pathology report on the skin biopsy is pending. At the moment we will continue with Unasyn, Solu-Medrol, and duo nebs as she does have some slight wheezes. Also send a stool sample as she now states that the day before the rash that developed she ate out and had a couple episodes of diarrhea. Inpatient E&M: [id number] Subs Hosp L2
[2020-06-01] MEDS: 0.9% Saline Lock 10 ML Syringe IV (21:52)
[2020-06-02] MEDS: oxyCODONE 5 MG Tablet PO (00:01)
[2020-06-02 03:00] VITALS: PULSE 76
[2020-06-02 03:55] VITALS: BP 145/77; PULSE 88; RESP 18; TEMP 36.9; O2SAT 94
[2020-06-02 04:12] VITALS: PULSE 104
[2020-06-02] MEDS: 0.9% Saline Lock 10 ML Syringe IV (05:22)
[2020-06-02] MEDS: 0.9% Normal Saline 1,000 ML 150 ML IV (06:18)
[2020-06-02 07:14] VITALS: PULSE 90; RESP 18; O2SAT 94
[2020-06-02] MEDS: Ipratropium/Albuterol Sulfate 3 ML AMPUL.NEB INHALATION (07:14)
[2020-06-02] MEDS: Enoxaparin 40 MG/0.4 ML Syringe SC (08:06)
--- NOTE | 2020-06-02 08:37 | PCM.PN.INT ---
Subjective: Patient transferred out of the intensive care unit yesterday. Patient reports subjective improvement in lower extremities and has been able to stand and walk to the bathroom. Patient does report decreased sleep overnight associated with pain in the left greater than right lower extremity. General: Alert, Oriented x3, Cooperative, No apparent distress, Well developed, Well nourished, - - Obese. Speaking in full sentences. HEENT: Atraumatic, PERRLA, EOMI, Normocephalic, - - No scleral icterus or injection noted Oral: Moist Mucosa, No Gingival or Mucosal Lesions/ Ulcerations Neck: Supple, No JVD, No Nodes, Trachea Midline Lungs: Clear to auscultation, Normal air movement, No rhonchi, No wheeze, No rales, - - Symmetric expansion. No dullness to percussion. Cardiovascular: Regular rate, Regular Rhythm, Normal S1, Normal S2, No murmurs, No rub noted, No Gallop Abdomen: Bowel Sounds Present, Soft, Non Tender, Non-Distended Extremities: No clubbing, No cyanosis, Edema - Improved lower extremities Skin: - - Petechiae and purpura still present. Surrounding erythema around purpura is improved Musculoskeletal: Tenderness - Improved compared to yesterday Lymphatic: No Cervical, Supraclavicular, or Inguinal Adenopathy Neurological: Cranial nerves II-XII grossly intact, Neuro grossly intact Psych/Mental Status: Alert and oriented to time, place, person, mood and affect Vital Signs Temp Pulse Resp BP Pulse Ox 36.9 C 104 H 18 145/77 H 94 06/02/20 03:55 06/02/20 04:12 06/02/20 03:55 06/02/20 03:55 06/02/20 03:55 Oxygen Flow Rate (L/min) 2 Oxygen Delivery Method Room Air Weight: 99 kg Body Mass Index (BMI) 34.8 Intake and Output for Last 24 Hours 05/31/20 06/01/20 06/02/20 23:59 23:59 23:59 Intake Total 2016 4947.5 / 4947.5 1407 / 1407 Output Total 1849 / 1850 Balance 2016 3097.5 / 3097.5 1407 / 1407 Labs (Last 48 Hours) 05/31/20 05/31/20 05/31/20 13:55 13:55 13:55 WBC 11.9 H RBC 4.46 Hgb 13.1 Hct 41.0 MCV 91.9 MCH 29.4 MCHC 32.0 RDW Std Deviation 41.4 RDW Coeff of Sarah 12.4 Plt Count 437 MPV 10.0 Immature Gran % (Auto) 0.300 Neut % (Auto) 78.2 H Lymph % (Auto) 12.9 L [place] % (Auto) 7.7 Eos % (Auto) 0.6 Baso % (Auto) 0.3 Absolute Neuts (auto) 9.3 H Absolute Lymphs (auto) 1.53 Nucleated RBC % 0 ESR 29 PT 13.3 INR 1.1 APTT 29.8 Fibrinogen 562 H D-Dimer Quant (PE/DVT) 5.62 H* Sodium 137 Potassium 3.8 Chloride 103 Carbon Dioxide 31.0 Anion Gap 3 L BUN 9 Creatinine 1.01 Estim Creat Clear Calc 53.28 Est GFR (MDRD) Af Amer 71 Est GFR (MDRD) Non-Af 58 L BUN/Creatinine Ratio 8.9 L Glucose 110 H Lactic Acid Calcium 8.8 Total Bilirubin 0.50 AST 18 ALT 23 Alkaline Phosphatase 101 Troponin I < 0.015 C-React Prot Ext Range 83.50 H Total Protein 8.3 H Albumin 3.3 Globulin 5.0 H Albumin/Globulin Ratio 0.7 L Procalcitonin Serum Cryoglobulins Rheumatoid Factor JOSETTE Screen c-ANCA Antibody p-ANCA Antibody CARINA-1 Antibody SS-A/Ro IgG Antibody SS-B/La IgG Antibody Sm (Berry) Antibody PATTERN LEASE INSPECTOR Antibody Scl-70 Scleroderma Ab Double Strand DNA Ab Centromere B Antibody Complement C3 Complement C4 COVID-19 ([facility]) Anti-Streptolysin Titr 05/31/20 05/31/20 05/31/20 13:55 14:05 17:30 WBC RBC Hgb Hct MCV MCH MCHC RDW Std Deviation RDW Coeff of Asrah Plt Count MPV Immature Gran % (Auto) Neut % (Auto) Lymph % (Auto) [place] % (Auto) Eos % (Auto) Baso % (Auto) Absolute Neuts (auto) Absolute Lymphs (auto) Nucleated RBC % ESR PT INR APTT Fibrinogen D-Dimer Quant (PE/DVT) Sodium Potassium Chloride Carbon Dioxide Anion Gap BUN Creatinine Estim Creat Clear Calc Est GFR (MDRD) Af Amer Est GFR (MDRD) Non-Af BUN/Creatinine Ratio Glucose Lactic Acid 1.0 Calcium Total Bilirubin AST ALT Alkaline Phosphatase Troponin I C-React Prot Ext Range Total Protein Albumin Globulin Albumin/Globulin Ratio Procalcitonin 0.07 Serum Cryoglobulins Rheumatoid Factor JOSETTE Screen c-ANCA Antibody p-ANCA Antibody CARINA-1 Antibody SS-A/Ro IgG Antibody SS-B/La IgG Antibody Sm (Berry) Antibody PATTERN LEASE INSPECTOR Antibody Scl-70 Scleroderma Ab Double Strand DNA Ab Centromere B Antibody Complement C3 Complement C4 COVID-19 ([facility]) Negative Anti-Streptolysin Titr 05/31/20 05/31/20 05/31/20 17:30 17:30 17:30 WBC RBC Hgb Hct MCV MCH MCHC RDW Std Deviation RDW Coeff of Sarah Plt Count MPV Immature Gran % (Auto) Neut % (Auto) Lymph % (Auto) [place] % (Auto) Eos % (Auto) Baso % (Auto) Absolute Neuts (auto) Absolute Lymphs (auto) Nucleated RBC % ESR PT INR APTT Fibrinogen D-Dimer Quant (PE/DVT) Sodium Potassium Chloride Carbon Dioxide Anion Gap BUN Creatinine Estim Creat Clear Calc Est GFR (MDRD) Af Amer Est GFR (MDRD) Non-Af BUN/Creatinine Ratio Glucose Lactic Acid Calcium Total Bilirubin AST ALT Alkaline Phosphatase Troponin I C-React Prot Ext Range Total Protein Albumin Globulin Albumin/Globulin Ratio Procalcitonin Serum Cryoglobulins Pending Rheumatoid Factor < 10.0 JOSETTE Screen Pending c-ANCA Antibody p-ANCA Antibody CARINA-1 Antibody Pending SS-A/Ro IgG Antibody Pending SS-B/La IgG Antibody Pending Sm (Berry) Antibody Pending PATTERN LEASE INSPECTOR Antibody Pending Scl-70 Scleroderma Ab Pending Double Strand DNA Ab Pending Centromere B Antibody Pending Complement C3 Complement C4 COVID-19 ([facility]) Anti-Streptolysin Titr 05/31/20 06/01/20 06/01/20 17:30 04:30 04:30 WBC 8.4 RBC 3.79 L Hgb 11.2 L Hct 35.0 L MCV 92.3 MCH 29.6 MCHC 32.0 RDW Std Deviation 42.5 RDW Coeff of Sarah 12.6 Plt Count 337 MPV 10.0 Immature Gran % (Auto) 0.500 Neut % (Auto) 90.9 H Lymph % (Auto) 7.3 L [place] % (Auto) 1.2 Eos % (Auto) 0.0 Baso % (Auto) 0.1 Absolute Neuts (auto) 7.6 Absolute Lymphs (auto) 0.61 L Nucleated RBC % 0 ESR PT INR APTT Fibrinogen D-Dimer Quant (PE/DVT) Sodium 140 Potassium 4.8 Chloride 109 H Carbon Dioxide 27.0 Anion Gap 4 L BUN 9 Creatinine 0.83 Estim Creat Clear Calc 59.99 Est GFR (MDRD) Af Amer 89 Est GFR (MDRD) Non-Af 73 BUN/Creatinine Ratio 10.9 Glucose 153 H Lactic Acid Calcium 8.1 L Total Bilirubin AST ALT Alkaline Phosphatase Troponin I C-React Prot Ext Range Total Protein Albumin Globulin Albumin/Globulin Ratio Procalcitonin Serum Cryoglobulins Rheumatoid Factor JOSETTE Screen c-ANCA Antibody Pending p-ANCA Antibody Pending CARINA-1 Antibody SS-A/Ro IgG Antibody SS-B/La IgG Antibody Sm (Berry) Antibody PATTERN LEASE INSPECTOR Antibody Scl-70 Scleroderma Ab Double Strand DNA Ab Centromere B Antibody Complement C3 Pending Complement C4 Pending COVID-19 ([facility]) Anti-Streptolysin Titr Pending Medical Necessity - Tobacco Use Smoking Status: Former smoker Assessment/Plan All Active Problems Petechial rash (Acute) Cellulitis of both lower extremities (Acute) SIRS (systemic inflammatory response syndrome) (Acute) RECOMMENDATIONS: 1. Transition to prednisone therapy. 60 mg a day for 7 days then 20 mg a day for 7 days 2. Outpatient follow-up with dermatology 3. Walking oximetry prior to discharge 4. Obtain stool studies 5. Await skin biopsy 6. Okay to discharge from a pulmonary perspective. Could follow-up as an outpatient for pulmonary function testing if requested IMPRESSIONS: 1. 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 Patient did have a punch biopsy obtained prior to initiation of steroid therapy. CRP is elevated and patient has reported some improvement following steroid therapy. Rheumatologic work-up has been sent. Would send stool studies for possible Shiga toxin. Patient will likely require some coverage for hyperglycemia given steroid therapy. Patient does not have any oral lesions to be consistent with Parnell-Teo syndrome. Patient has responded well to steroid therapy. Recommend continuing prednisone 60 mg a day for 7 days, then 20 mg a day for 7 days then off. Patient will need to follow-up with PCP. Dr. Caldera is willing to see the patient as an outpatient to help, but will need records sent to his office as he was not consulted in the hospital. 2. COPD Patient is no longer smoking, but does have significant emphysematous changes noted on CT scan of the chest. Reasonable to continue with DuoNeb and albuterol aerosols. Steroids may help situation. Patient will have compromised pulmonary mechanics secondary to lower extremity pain. Patient should have outpatient work-up for quantification clarification of lung function and evaluation for need for supplemental oxygen. Patient is on triple therapy as an outpatient, but it is unclear if this was following pulmonary function testing for COPD/asthma overlap syndrome. Overnight oxygen may be secondary to untreated sleep apnea versus advanced COPD. Given negative lower extremity Dopplers and CTA of the chest, pulmonary embolism is unlikely. 3. SIRS secondary to #1 Likely okay to discontinue antibiotics from my perspective. Autoimmune work-up has been ordered and punch biopsy is currently being processed. UA has been ordered, but no results are available. 4. Advanced age/obesity Complicates care, management, recovery and prognosis. Unclear if patient follows regularly with her physician. Inpatient E&M: [id number] Subs Hosp L2
[2020-06-02 10:28] VITALS: BP 158/81; PULSE 105; RESP 18; TEMP 35.5; O2SAT 94
--- NOTE | 2020-06-02 11:24 | NURSING ---
In to reassess bilateral lower legs. the redness is now nearly gone. patient still has the dark red/purple areas near the ankles. small fluid filled blisters noted. the blisters most likely related to the edema. patient states she is more comfortable with legs down. pt states she would not be able to tolerate compression wraps. no drainage noted at this time. no sign of infection noted. pt states she feels much better and the discomfort in her ankles has also greatly improved. the steroids appear to be working well. pt is hoping to be discharged home today and states she will be following up with Dr Caldera after discharge.
--- NOTE | 2020-06-02 11:38 | PCM.DC ---
- Discharge Diagnoses Current Active Problems: Current Active and Chronic Problems COPD (chronic obstructive pulmonary disease) (Chronic) Petechial rash (Acute) Cellulitis of both lower extremities (Acute) SIRS (systemic inflammatory response syndrome) (Acute) History of tobacco abuse (Chronic) You will use the following diet at home:: No restrictions Discharge Activity: Return to Normal Activity Call your doctor if you observe: Fever of 101 or Higher, Uncontrolled pain, - - Worsening rash Allergies/Adverse Reactions: Allergies No Known Allergies Allergy (Verified 05/31/20 13:55) Medications to take at Discharge Ascorbic Acid [Vitamin C] 1,000 mg PO DAILY 05/31/20 Calcium Carbonate/Vitamin D3 [Calcium 600 + Vit D Tablet] 1 ea PO DAILY 05/31/20 Cholecalciferol (Vitamin D3) [Vitamin D3] 2,000 unit PO DAILY 05/31/20 Fluticasone/Umeclidin/Vilanter [Trelegy Ellipta 100-62.5-25] 1 ea IH Q6H PRN PRN 05/31/20 Garlic 1 ea PO DAILY 05/31/20 [place]-3 Fatty Acids/Fish Oil [Fish Oil 1,000 mg Capsule] 1 ea PO DAILY 05/31/20 Vitamin B Complex [B Complex] 1 ea PO DAILY 05/31/20 Oxycodone [Oxyir] 5 mg PO Q6H PRN PRN 5 Days #10 tablet 06/02/20 predniSONE tablet 60 mg PO DAILY@0800 #28 tab 06/02/20 The following prescriptions were given: Oxycodone [Oxyir] 5 mg PO Q6H PRN PRN 5 Days #10 tablet PRN Reason: Pain Score 6-10/10 Transmission Status: Sent to [id number] predniSONE tablet 60 mg PO DAILY@0800 #28 tab Transmission Status: Pending to [id number] Primary Care Physician: Alyce Luis MD [Primary Care Provider] - Please follow up with your Primary Care Physician in: 1 Week Test Results: Test results from this visit will be discussed in further detail at your follow-up appointment, if applicable. Please Follow Up With: Sukhwinder Caldera MD When: 2-3 days Proposed Discharge Date: 06/02/20
--- NOTE | 2020-06-02 11:42 | PCM.DC.SUM ---
<Tamela Mejia - Last Filed: 06/02/20 11:49> Discharge Date and Diagnosis Date of Admission: 05/31/20 Date of Discharge: 06/02/20 - Primary Discharge Diagnosis Acute Problems: Active Problems 1. Suspected vasculitis 2. SIRS 2/2 #1 3. Diarrhea, self-limited- resolved 4. Chronic COPD 5. Former tobacco use - Secondary Discharge Diagnosis Chronic Problems: Chronic Problems COPD (chronic obstructive pulmonary disease) (Chronic) History of tobacco abuse (Chronic) Hospital Course and Treatment Imaging Results: Diagnostic Data Chest X-Ray 05/31/20 14:03 IMPRESSION: No active pulmonary disease. Electronically Signed: Ata Rdz MD at 15:10 EDT Tel , Service support , Chest CTA 05/31/20 14:32 IMPRESSION: 1. No pulmonary embolism 2. No acute vascular thoracic pathology. 3. No acute pulmonary findings. 4. Refer to ultrasonography of the lower terminates for more complete risk stratification of a patient at risk for venous thrombi embolic disease. 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 1. 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 Punch biopsy results pending. D-dimer elevated. CTA negative for PE. Bilateral duplex ultrasound negative for DVT. CRP elevated. ESR normal. Lactic acid normal. Autoimmune labs pending. IV Solu-Medrol during admission. Lower extremity rash significantly improved. Continues to have large darkened areas around ankles with mild blistering. Continue prednisone at discharge 60 mg daily for 7 days then 20 mg daily for 7 days. Antibiotics discontinued. Follow-up with dermatology in 2 to 3 days, Dr. Sukhwinder Caldera. 2. SIRS-tachycardia, tachypnea, leukocytosis. Afebrile. Lactic acid normal. CTA without acute process. Secondary to #1. 3. Awegrupz-ajmz-braypgvu. No further diarrhea during admission. 4. Chronic COPD-no exacerbation. Albuterol and DuoNeb aerosols. Patient follows with Dr. Rodriguez, [facility] pulmonary medicine. 5. Former tobacco use-quit 3-1/2 years ago. Encouraged continued cessation. General: Alert, Oriented x3, Cooperative HEENT: Atraumatic, PERRLA, EOMI, Normocephalic Neck: Supple, No JVD, Negative Carotid Bruits Lungs: Clear to auscultation, Diminished Cardiovascular: Regular rate, No murmurs Abdomen: Bowel Sounds Present, Soft, Non Tender, Non-Distended Extremities: No clubbing, No cyanosis, No edema, Capillary Refill Less than 3 Seconds Skin: - - Bilateral lower extremity petechial rash extending to mid abdomen. Petechial areas significantly improved. Bilateral feet and ankle large patches with echar appearance. Improved from prior assessment. Mild blistering. Musculoskeletal: No Tenderness to Palpation of Joints or Extremities Neurological: Cranial nerves II-XII grossly intact, Neuro grossly intact Psych/Mental Status: Normal Affect, Appropriate Patient seen and examined prior to discharge. Physical assessment as noted above. Patient is stable for discharge with follow up recommendations as noted above. This patient was seen by HUNTER Ramirez under the supervision of Dr. Manzo. - Physical Exam Vitals/I&O's: Vital Signs Temp Pulse Resp BP Pulse Ox 95.9 F L 105 H 18 158/81 H 94 06/02/20 10:28 06/02/20 10:28 06/02/20 10:28 06/02/20 10:28 06/02/20 10:28 Oxygen Flow Rate (L/min) 2 Oxygen Delivery Method Room Air Weight: 218 lb 4.122 oz Body Mass Index (BMI) 34.8 Intake and Output for Last 24 Hours 05/31/20 06/01/20 06/02/20 23:59 23:59 23:59 Intake Total 2016 4947.5 / 4947.5 1407 / 1407 Output Total 1850 / 1850 Balance 2016 3097.5 / 3097.5 1407 / 1407 Microbiology Past 72 Hours 05/31/20 13:55 Blood Culture (Wb) - Anticubital Right Blood Culture - Preliminary No growth in 48 hours. 05/31/20 14:30 Blood Culture (Wb) - Anticubital Right Blood Culture - Preliminary No growth in 48 hours. Laboratory Results 05/31/20 17:30: c-ANCA Antibody Pending, p-ANCA Antibody Pending, Complement C3 Pending, Complement C4 Pending, Anti-Streptolysin Titr Pending Current Medications Acetaminophen (Tylenol) 650 mg PO Q6H PRN PRN PRN Reason: Pain Score 1-10/Temp > 100.7 F Albuterol/Ipratropium (Duoneb) 3 ml INHALATION Q6HWA.RT [facility] Last Admin: 06/02/20 07:14 Dose: 3 ml Documented by: Enoxaparin Sodium (Lovenox) 40 mg SC DAILY [facility] Last Admin: 06/02/20 08:06 Dose: 40 mg Documented by: Sodium Chloride () 250 mls @ 15 mls/hr IV .[id number] PRN PRN Reason: Saline Flush Sodium Chloride () 250 mls @ 15 mls/hr IV .[id number] PRN PRN Reason: Additional IVPB Infusion Sodium Chloride () 1,000 mls @ 150 mls/hr IV .Q6H40M [facility] Last Admin: 06/02/20 06:18 Dose: 150 mls/hr Documented by: Ampicillin Sodium/Sulbactam (Sodium 3 gm/ Sodium Chloride) 112 mls @ 150 mls/hr IV Q6 [facility] Last Infusion: 06/02/20 06:08 Dose: Infused Documented by: Melatonin (Melatonin) 3 mg PO QHS PRN PRN PRN Reason: INSOMNIA Morphine Sulfate () 2 mg IV Q3H PRN PRN PRN Reason: Pain Score 6-10/10 Ondansetron HCl (Zofran) 4 mg IV Q8H PRN PRN PRN Reason: NAUSEA/VOMITING Oxycodone HCl (Oxyir) 5 mg PO Q6H PRN PRN PRN Reason: Pain Score 6-10/10 Last Admin: 06/02/20 00:01 Dose: 5 mg Documented by: Prednisone () 60 mg PO DAILY@0800 [facility] Sodium Chloride () 10 - 40 ml IV UD PRN PRN Reason: SALINE FLUSH Last Admin: 06/02/20 05:22 Dose: 10 ml Documented by: Discharge Diet: No Restrictions Discharge Activity: Return to Normal Activity Call your doctor if you observe: Fever of 101 or Higher, Uncontrolled pain, - - Worsening rash Home Medications: Medications to take at Discharge Ascorbic Acid [Vitamin C] 1,000 mg PO DAILY 05/31/20 Calcium Carbonate/Vitamin D3 [Calcium 600 + Vit D Tablet] 1 ea PO DAILY 05/31/20 Cholecalciferol (Vitamin D3) [Vitamin D3] 2,000 unit PO DAILY 05/31/20 Fluticasone/Umeclidin/Vilanter [Trelegy Ellipta 100-62.5-25] 1 ea IH Q6H PRN PRN 05/31/20 Garlic 1 ea PO DAILY 05/31/20 [place]-3 Fatty Acids/Fish Oil [Fish Oil 1,000 mg Capsule] 1 ea PO DAILY 05/31/20 Vitamin B Complex [B Complex] 1 ea PO DAILY 05/31/20 Oxycodone [Oxyir] 5 mg PO Q6H PRN PRN 5 Days #10 tab 06/02/20 predniSONE tablet 60 mg PO DAILY@0800 #28 tab 06/02/20 Following Prescriptions Were Given to Patient: Oxycodone [Oxyir] 5 mg PO Q6H PRN PRN 5 Days #10 tab PRN Reason: Pain Score 6-10/10 Transmission Status: Received by [facility] [id number] predniSONE tablet 60 mg PO DAILY@0800 #28 tab Transmission Status: Received by [id number] Primary Care Physician: Alyce Luis MD [Primary Care Provider] - Please follow up with your Primary Care Physician in: 1 Week Please Follow Up With: Sukhwinder Caldera MD When: 2-3 days Disposition: Home Minutes spent on discharge:: 35 Patient Condition:: Stable Medical Necessity - Tobacco Use Smoking Status: Former smoker Meaningful Use Info Meaningful Use Diagnoses (Choose all that apply): None applicable <Rubén Manzo - Last Filed: 06/02/20 12:38> Discharge Date and Diagnosis - Secondary Discharge Diagnosis Chronic Problems: Chronic Problems COPD (chronic obstructive pulmonary disease) (Chronic) History of tobacco abuse (Chronic) Hospital Course and Treatment Consultations 06/01/20 08:20 Consult: Onc/Wound/fruit farmworker Routine Comment: Summary of Care Provided: The patient is a 65 year old F [] - Physical Exam Vitals/I&O's: Vital Signs Temp Pulse Resp BP Pulse Ox 95.9 F L 105 H 18 158/81 H 94 06/02/20 10:28 06/02/20 10:28 06/02/20 10:28 06/02/20 10:28 06/02/20 10:28 Oxygen Flow Rate (L/min) 2 Oxygen Delivery Method Room Air Weight: 218 lb 4.122 oz Body Mass Index (BMI) 34.8 Intake and Output for Last 24 Hours 05/31/20 06/01/20 06/02/20 23:59 23:59 23:59 Intake Total 2016 4947.5 / 4947.5 2246 / 2246 Output Total 1849 / 1849 Balance 2016 3097.5 / 3097.5 224 / 224 Microbiology Past 72 Hours 05/31/20 13:55 Blood Culture (Wb) - Anticubital Right Blood Culture - Preliminary No growth in 48 hours. 05/31/20 14:30 Blood Culture (Wb) - Anticubital Right Blood Culture - Preliminary No growth in 48 hours. Laboratory Results 05/31/20 17:30: c-ANCA Antibody Pending, p-ANCA Antibody Pending, Complement C3 Pending, Complement C4 Pending, Anti-Streptolysin Titr Pending Current Medications Acetaminophen (Tylenol) 650 mg PO Q6H PRN PRN PRN Reason: Pain Score 1-10/Temp > 100.7 F Albuterol/Ipratropium (Duoneb) 3 ml INHALATION Q6HWA.RT [facility] Last Admin: 06/02/20 07:14 Dose: 3 ml Documented by: Enoxaparin Sodium (Lovenox) 40 mg SC DAILY [facility] Last Admin: 06/02/20 08:06 Dose: 40 mg Documented by: Sodium Chloride () 250 mls @ 15 mls/hr IV .[id number] PRN PRN Reason: Saline Flush Sodium Chloride () 250 mls @ 15 mls/hr IV .[id number] PRN PRN Reason: Additional IVPB Infusion Sodium Chloride () 1,000 mls @ 150 mls/hr IV .Q6H40M [facility] Last Infusion: 06/02/20 11:54 Dose: Infused Documented by: Ampicillin Sodium/Sulbactam (Sodium 3 gm/ Sodium Chloride) 112 mls @ 150 mls/hr IV Q6 [facility] Last Infusion: 06/02/20 06:08 Dose: Infused Documented by: Melatonin (Melatonin) 3 mg PO QHS PRN PRN PRN Reason: INSOMNIA Morphine Sulfate () 2 mg IV Q3H PRN PRN PRN Reason: Pain Score 6-10/10 Ondansetron HCl (Zofran) 4 mg IV Q8H PRN PRN PRN Reason: NAUSEA/VOMITING Oxycodone HCl (Oxyir) 5 mg PO Q6H PRN PRN PRN Reason: Pain Score 6-10/10 Last Admin: 06/02/20 00:01 Dose: 5 mg Documented by: Prednisone () 60 mg PO DAILY@0800 [facility] Last Admin: 06/02/20 11:54 Dose: 60 mg Documented by: Sodium Chloride () 10 - 40 ml IV UD PRN PRN Reason: SALINE FLUSH Last Admin: 06/02/20 05:22 Dose: 10 ml Documented by: Addendum: Dr. Manzo I personally examined the patient and reviewed the chart. I agree with the above. 65-year-old female with a history of COPD presents to the hospital chest pain, tachypnea and wheezing. About a month ago she had dental extraction of her lower teeth and then about a week and a half ago she developed a small rash on her legs just isolated lesions and then on Monday she went to an urgent care where she was evaluated and sent home after she had a blood test, that blood test was an ESR which came back elevated at 53. Then 3 days ago her rash significantly worsened in her lower legs. She presents today with no fever but she has tachycardic and tachypneic she is oxygenating well though. There is concern that she had cellulitis versus a vasculitis. She had an elevated d-dimer so CTA of the chest was performed which was negative for PE and did not show any type of pneumonia. Her fibrinogen was also elevated however her platelets were normal. I did perform a 3 mm punch biopsy of 1 of her vascular lesions in her left lower extremity and she was started on Unasyn as well as steroids for her COPD and vasculitis and DuoNeb's. Also transfer her to the ICU as a precaution and continue with aggressive IV fluid. Not autoimmune panel is pending and will also obtain Doppler studies of her lower extremities. She does not have significant edema but the area of the rash around her ankles that is coalesced has some skin sloughing, the rash is also painful. It is nonblanching but it is somewhat raised and nodular. Renal function is stable, her initial troponin was unremarkable and her EKG was nonischemic. 06/01/2020: She is doing much better today, hand bindery assembly worker agrees that this appears to be a vasculitis. We will continue with steroids and will add on to previous lab work complement levels as well as C&P-ANCA's for further classification stratification. Pathology report on the skin biopsy is pending. At the moment we will continue with Unasyn, Solu-Medrol, and duo nebs as she does have some slight wheezes. Also send a stool sample as she now states that the day before the rash that developed she ate out and had a couple episodes of diarrhea. 06/02/2020: Feeling much better today the rash looks significantly improved. She has decreased pain in her lower extremities. Pathology from the punch biopsy is pending, C3 and C4 complement levels as well as a c-ANCA and p-ANCA were obtained yesterday. She will need to be on steroids for at least 2 weeks and will follow up with dermatology as an outpatient. Discussed with her that she will be notified when results come back from the biopsy. At this point she is remained afebrile, and I do not believe that there is any major source of infection therefore her antibiotics can be discontinued. Inpatient E&M: [id number] Disch Hosp
[2020-06-02] MEDS: predniSONE 20 MG Tablet 60 MG PO (11:54)
--- NOTE | 2020-06-02 11:55 | CASEMGMT ---
Pt has been on room air and per Brianda MARTÍNEZ, pt has been up in room with no SOB or concerns for home O2 at this time. Eh MARTÍNEZ CM
--- NOTE | 2020-06-02 12:13 | PHA.DC.MR ---
Pharmacy Service has performed discharge medication reconciliation for this patient. The patient's discharge medication list was reviewed for discrepancies and discrepancies were resolved. Home Medications Ascorbic Acid [Vitamin C] 1,000 mg PO DAILY 05/31/20 Calcium Carbonate/Vitamin D3 [Calcium 600 + Vit D Tablet] 1 ea PO DAILY 05/31/20 Cholecalciferol (Vitamin D3) [Vitamin D3] 2,000 unit PO DAILY 05/31/20 Fluticasone/Umeclidin/Vilanter [Trelegy Ellipta 100-62.5-25] 1 ea IH Q6H PRN PRN 05/31/20 Garlic 1 ea PO DAILY 05/31/20 [place]-3 Fatty Acids/Fish Oil [Fish Oil 1,000 mg Capsule] 1 ea PO DAILY 05/31/20 Vitamin B Complex [B Complex] 1 ea PO DAILY 05/31/20 Oxycodone [Oxyir] 5 mg PO Q6H PRN PRN 5 Days #10 tab 06/02/20 predniSONE tablet 60 mg PO DAILY@0800 #28 tab 06/02/20
[2020-06-02 16:09] LABS: Complement C3 170 mg/dL (82-167); Cytoplasmic Ab (C-ANCA) <1:20 titer (Neg:<1:20)
[2020-06-02 16:55] LABS: ASO Titer 20.7 IU/mL (0.0-200.0); Perinuclear Ab (P-ANCA) <1:20 titer (Neg:<1:20)
[2020-06-02 16:56] LABS: ANTINUCLEAR ANTIBODIES DIRECT Negative (Negative)
== END 2020-06-02 13:25 | disposition home or self-care (01) | DRG 607 ==
LOC: ED 15:38 → ICU 16:42 → PCU 06-01 13:44
PROVIDERS: Nurse Practitioner Family; Admitting Provider Family Medicine; Emergency Provider Emergency Medicine; PCP Internal Medicine; Visit Provider Family Medicine
DX: L95.8 Other vasculitis limited to the skin (principal); R65.10 Systemic inflammatory response syndrome (SIRS) of non-infectious origin without acute organ dysfunction; J44.9 Chronic obstructive pulmonary disease, unspecified; Z87.891 Personal history of nicotine dependence; E66.9 Obesity, unspecified; R19.7 Diarrhea, unspecified; Z68.34 Body mass index [BMI] 34.0-34.9, adult
CPT/HCPCS: 71045; 71275; 80048; 80053; 82595; 83605; 84145; 84484; 85025; 85379; 85384; 85610; 85652; 85730; 86038; 86060; 86140; 86160; 86225; 86235; 86256; 86431; 87040; 87635; 88305; 88313; 93005; 93970; 94640; 94762; 94799; 97162; 97166; 97530; 99285; J7030; J7050; Q9967; A4216; J0295; U0003

== ENCOUNTER 2020-06-03 02:50 | Inpatient (IN) | payer MEDICARE, SELFPAY ==
[2020-05-31 17:16] VITALS: BMI 34.8
[2020-06-03] VITALS (36 sets, daily range): BP systolic 96–190; BP diastolic 57–143; PULSE 89–134; RESP 14–28; TEMP 36.3–37.2; O2SAT 85–100; BMI 34.7; BMI 36.7
--- NOTE | 2020-06-03 02:51 | EKG12_ITS ---
Test Reason : SOB Blood Pressure : / mmHG Vent. Rate : 123 BPM Atrial Rate : 123 BPM P-R Int : 116 ms QRS Dur : 076 ms QT Int : 294 ms P-R-T Axes : 078 044 -23 degrees QTc Int : 420 ms Sinus tachycardia Nonspecific ST and T wave abnormality Abnormal ECG Confirmed by DILLON WRIGHT, JAYLEN ([id number]), editorial manager NATAN PRINCE ([id number]) on 06/08/2020 9:22:06 AM Referred By: YOKASTA Confirmed By:JAYLEN CARRANZA MD
--- NOTE | 2020-06-03 02:51 | RAD_ITS ---
STUDY: X-RAY CHEST REASON FOR EXAM: Female, 65 years old. severe sob -- hx of copd TECHNIQUE: AP COMPARISON: 05/31/2020. FINDINGS: The lungs are clear and expanded. There is no demonstrated pleural abnormality. Normal size heart. Normal mediastinum and yani. Normal visualized pulmonary arteries. Normal visualized aortic arch and descending thoracic aorta. There is right infrahilar opacity consistent with prior detected pericardial fat pad. There are diffuse degenerative changes of the visualized thoracic spine. Normal visualized ribs, clavicles, and shoulders. There is no demonstrated abnormality of the visualized soft tissue structures of the upper abdomen. RAD/Chest 1 View (Portable) IMPRESSION: Negative x-ray examination of the chest. No interval change. Electronically Signed: Hector Franklin, at 3:41 EDT Tel , Service support ,
--- NOTE | 2020-06-03 02:52 | ED.DCSUM_ITS ---
History of Present Illness Chief Complaint: Shortness of Breath Informant: Patient, Spouse/S.O., EMS Onset: Today - became worse tonight, but wheezing off and on / sob x 2d Activity at onset: Exertion - before, Rest - now Timing: Continuous Quality: Wheezing Current Severity: Severe Maximum Severity: Severe Worsened by: Exertion Relieved by: Oxygen - a little Chest Pain: Tightness Narrative: Patient was just discharged from the hospital less than 24 hours ago because of a petechial/purpuric rash on her lower extremities that was thought to be some type of vasculitis. Biopsy was sent, but that is still pending, she was started on steroid therapy and improved, with regards to the rash, redness, pain on her legs. Antibiotics were discontinued. She has had continued improvement of her legs, they have been swollen but no more so than before. She has become much more short of breath, and it became severe tonight, albuterol at home did not seem to help. Her chest is gradually become very tight accordingly. She denies any fevers chills, or other new symptoms. She was seen by pulmonology while in the hospital, and the plan was to follow-up with them as an outpatient, she had CT angiography that showed no pulmonary embolus and ultrasound of the lower ex tremities that showed no DVTs, and there were extensive emphysematous changes seen on the CT of the chest. She was going to have pulmonary function testing then when she followed up as an outpatient. No known cardiac problems or congestive heart failure. Currently is on prednisone 60 mg daily. - Past Medical History (1) Petechial rash Status: Acute (2) COPD (chronic obstructive pulmonary disease) Status: Chronic Past Medical History - Allergies and Home Meds Allergies/Adverse Reactions: Allergies No Known Allergies Allergy (Verified 05/31/20 13:55) Surgical History: - - Hysterectomy. Exploratory abdominal surgery. Lives: Spouse/ Significant Other Smoking Status: Former smoker - Family History Maternal Family History: Reports: COPD, - - in her late 60s of unknown causes. Paternal Family History: Reports: - - Denies known paternal medical history including cardiac history. Review of Systems General: Reports: Malaise. Denies: Chills, Fever, Sweats Eyes: Denies: Visual changes - bilaterally, Diplopia ENT: Denies: Rhinorrhea, Sore throat Cardiovascular: Reports: Chest pain. Denies: Palpitations Respiratory: Reports: Dyspnea. Denies: Cough, Dyspnea on exertion Gastrointestinal: Denies: Abdominal pain, Nausea, Vomiting, Diarrhea, Melena, Hematochezia Genitourinary: Denies: Dysuria, Hematuria, Frequency Musculoskeletal: Reports: Swelling, Extremity Pain - improved, associated w/ rash. Denies: Back pain Skin: Reports: Rash. Denies: Wounds Neurological: Denies: Headache, Weakness, Numbness Physical Exam Vital Signs/Narrative: Vital Signs Temp Pulse Resp BP Pulse Ox 06/03/20 02:51 98.8 F 126 H 27 H 173/143 H 85 Inital Vital Signs reviewed: Yes General: Well nourished, Well developed, Acute Distress - respiratory, speaking in 2-4-word sentences Head: Normocephalic, Atraumatic Eyes: Perrl, EOMI ENT: Moist mucous membranes, No rhinorrhea Neck: Supple, Nontender, No JVD, - - trachea midline Cardiovascular: Regular rate, Regular rhythm, No murmurs, Tachycardia Respiratory: Chest nontender, Wheezing - throughout expiration, diffusely, symmetrically. Negative for: Rales, Rhonchi Abdomen: Soft, Nontender, Nondistended, Normal bowel sounds Back: Nontender, Normal Inspection Extremities: Nontender, Edema - 1-2+ BLE to knees, symmetric. Negative for: Calf Tenderness Skin: Normal color, Rash - petechial/purpuric, BLE, faded/improved compared with my last evaluation 2-3d ago, and w/ resolution of blanching cellulitic erythema in between these lesions, distal BLE. Neurological: Alert, Oriented x3, Cranial nerves II-XII grossly intact, Normal Strength, Normal Sensation Psychological: Normal affect, Normal Mood Diagnostic/Tx/Re-eval Impressions Chest X-Ray 06/03/20 02:51 IMPRESSION: Negative x-ray examination of the chest. No interval change. Electronically Signed: Hector Franklin, at 3:41 EDT Tel , Service support , 06/03/20 02:51 Chest 1 View (Portable) [RAD] Stat Laboratory Results 06/03/20 06/03/20 06/03/20 03:00 03:00 03:00 WBC 15.8 H RBC 3.94 L Hgb 11.4 L Hct 36.8 L MCV 93.4 MCH 28.9 MCHC 31.0 L RDW Std Deviation 44.8 H RDW Coeff of Sarah 13.0 Plt Count 468 H MPV 9.8 Immature Gran % (Auto) 1.200 H Neut % (Auto) 80.8 H Lymph % (Auto) 10.3 L [place] % (Auto) 7.6 Eos % (Auto) 0.0 Baso % (Auto) 0.1 Absolute Neuts (auto) 12.7 H Absolute Lymphs (auto) 1.63 Nucleated RBC % 0 Specimen Type Sample Site pH Bicarbonate Actual Total CO2 Base Excess O2 Saturation O2 % ABG pCO2 ABG pO2 Fahad Test O2 Delivery Device Sodium 141 Potassium 3.7 Chloride 108 H Carbon Dioxide 29.0 Anion Gap 4 L BUN 13 Creatinine 0.92 Estim Creat Clear Calc 58.49 Est GFR (MDRD) Af Amer 78 Est GFR (MDRD) Non-Af 65 BUN/Creatinine Ratio 14.1 Glucose 123 H Calcium 8.1 L Troponin I 0.022 B-Natriuretic Peptide 479.3 H 06/03/20 03:26 WBC RBC Hgb Hct MCV MCH MCHC RDW Std Deviation RDW Coeff of Sarah Plt Count MPV Immature Gran % (Auto) Neut % (Auto) Lymph % (Auto) [place] % (Auto) Eos % (Auto) Baso % (Auto) Absolute Neuts (auto) Absolute Lymphs (auto) Nucleated RBC % Specimen Type ART Sample Site R Radial pH 7.31 L Bicarbonate Actual 27.1 H Total CO2 29 Base Excess 1 O2 Saturation 96 O2 % 4 ABG pCO2 54.2 H ABG pO2 93 Fahad Test Positive O2 Delivery Device Cannula Sodium Potassium Chloride Carbon Dioxide Anion Gap BUN Creatinine Estim Creat Clear Calc Est GFR (MDRD) Af Amer Est GFR (MDRD) Non-Af BUN/Creatinine Ratio Glucose Calcium Troponin I B-Natriuretic Peptide - Rhythm Strip Rhythm Strip: Sinus Tach Rate: 120 Ectopy: None - EKG Initial EKG Interpretation: No Acute Injury Pattern, Sinus Tachycardia Prior: Unchanged Follow-up EKG Interpretation: No Acute Injury Pattern, Sinus Tachycardia Prior: Unchanged Treatment - Dyspnea: Oxygen, Albuterol, Atrovent, Steroid - Medical Decision Making Patient was not improving significantly on aerosols, so before completing them, we started her on BiPAP. She was 85% on room air, and satting okay on a nasal cannula, but not breathing well enough on it alone. BiPAP seemed to help some, but she was still very wheezy and dyspneic. We discussed intubation which she wants to avoid, I think it is reasonable to avoid it at this time. The ABG shows mild respiratory acidosis, it was performed before placing her on BiPAP. Her work-up is consistent with a COPD exacerbation. She has a leukocytosis likely due to the steroids she has been on and I suspect demargination due to acute stress. There is no sign of infection/pneumonia/sepsis. There is no sign of pulmonary edema on the x-ray, she recently was ruled out for pulmonary embolus and COVID-19 within the last couple days, and with the significant wheezing clinically, I do not think those tests need to be repeated at this time. We canceled the last aerosol because of her tachycardia around 130. I discussed with Dr. Marin, who agrees with admitting her to the ICU and will see her this morning. I will add terbutaline and magnesium infusion to her treatment regimen. Discussed with hospitalist. While patient was still in the emergency department, waiting to go up to the ICU, she started complaining of heaviness in her chest, different than the tightness she presented with initially. I had her EKG repeated, it does not show any significant changes. She is still having sinus tachycardia in the 120s. Discussed with Dr(s)/Consults: Tomas Critical care time (excluding procedures): 30-74 minutes - 35 minutes, including time spent discussing with patient and family, discussing with consultants, arranging admission, and performing direct patient care at the bedside ED Disposition - Plan for ED Patient: Disposition: Acute Care Hospital [facility] Diagnosis: Acute respiratory failure with hypoxia, COPD with exacerbation, Petechial rash
[2020-06-03] MEDS: Ipratropium/Albuterol Sulfate 3 ML AMPUL.NEB INHALATION (03:03)
[2020-06-03] MEDS: Albuterol 2.5 MG/3 ML VIAL.NEB. INHALATION ×2 (03:03→03:36)
[2020-06-03 03:18] LABS: Absolute Lymphocyte Count 1.63 X10^3/uL (0.83-4.51); Absolute Neutrophil Count 12.7 X10^3/uL (2.0-7.7); Basophil# 0.01 X10^3/uL; Basophil% 0.1 % (0-1); Hematocrit 36.8 % (37-47); Hemoglobin 11.4 g/dL (12.0-15.0); Lymphocyte # 1.63 X10^3/ul (4.0); Lymphocyte % 10.3 % (19-41); Mean Corpuscular Hgb 28.9 pg (27.0-32.0); Mean Corpuscular Volume 93.4 fL (81-99); Mean Platelet Vol. 9.8 fl (6.2-12.0); Monocyte% 7.6 % (0-10); NRBC Flagged by Analyzer 0 % (0-5); Neutrophil # 12.74 X10^3/uL (2.7-7.7); Neutrophil % 80.8 % (47-70); Platelet Count 468 K/mm3 (150-450); RBC Distribution Width SD 44.8 fl (35.1-43.9); Red Blood Count 3.94 M/mm3 (4.2-5.4); White Blood Count 15.8 K/mm3 (4.4-11.0)
[2020-06-03 03:29] LABS: BNP,B-Type NATRIURETIC PEPTIDE 479.3 pg/mL (0-100)
[2020-06-03 03:31] LABS: Allen Test Positive; Base Excess 1 mmol/L (-2 to +2); Bicarbonate 27.1 mmol/L (22-26); Blood Gas Specimen Type ART; FI02 4; O2 Delivery Device Cannula; PO2 93 mmHG (75-100); SITE R Radial; SO2 96 % (95-99); Total Carbon Dioxide 29 mmol/L; pCO2 54.2 mmHg (35-45); pH 7.31 (7.35-7.45)
[2020-06-03 03:31] LABS: Anion Gap 4 (5-15); BUN 13 mg/dL (7-18); BUN/Creat Ratio 14.1 RATIO (10-20); Calcium,Total 8.1 mg/dL (8.5-10.1); Chloride 108 mmol/L (98-107); Creatinine, Serum 0.92 mg/dL (0.55-1.02); EST Glomerular Filtration Rate 65 mL/min (>60); Est Glom Filt Rate - Afr Amer 78 mL/min (>60); Estimated Creatinine Clearance 58.49 ml/min; Glucose 123 mg/dL (74-106); Potassium 3.7 mmol/L (3.5-5.1); Sodium Level 141 mmol/L (136-145)
--- NOTE | 2020-06-03 04:10 | PCM.HP.STD ---
Problem List (1) COPD with exacerbation Status: Chronic (2) Acute respiratory failure with hypoxia Status: Acute (3) COPD (chronic obstructive pulmonary disease) Status: Chronic Qualifiers: COPD type: emphysema Emphysema type: centrilobular Qualified Code(s): J43.2 - Centrilobular emphysema (4) Petechial rash Status: Acute (5) SIRS (systemic inflammatory response syndrome) Status: Acute (6) History of tobacco abuse Status: Chronic History of Present Illness Date of Admission: 06/03/20 Chief Complaint: SOB The patient is a 65 year old F with a significant history of shortness of breath who presented with sudden onset shortness of breath that was present when she woke up from sleep. . Associated with her symptom is wheezing Patient has a chronic nonproductive cough that has not changed. At the ED patient was given terbutaline, and magnesium IV. She was placed on BiPAP. The patient did not want to be intubated and she would accept intubation only as a last resort. ED doc o discussed the case with geographic information scientist who recommended patient be admitted to the intensive care unit. Patient was discharged from the hospital a day before her presentation. On a previous admission she was treated for vasculitis and was discharged home on prednisone 60 mg daily. The last time she took her prednisone was on the morning of her discharge Past Medical History Past Medical History (Chronic Problems): Chronic Problems COPD with exacerbation (Chronic) COPD (chronic obstructive pulmonary disease) (Chronic) History of tobacco abuse (Chronic) Allergies No Known Allergies Allergy (Verified 05/31/20 13:55) Home Medications: Ambulatory Orders Medication Instructions Recorded Ascorbic Acid [Vitamin C] 1,000 mg PO DAILY 05/31/20 Calcium Carbonate/Vitamin D3 1 ea PO DAILY 05/31/20 [Calcium 600 + Vit D Tablet] Cholecalciferol (Vitamin D3) 2,000 unit PO DAILY 05/31/20 [Vitamin D3] Fluticasone/Umeclidin/Vilanter 1 ea IH Q6H PRN PRN 05/31/20 [Trelegy Ellipta 100-62.5-25] Garlic 1 ea PO DAILY 05/31/20 [place]-3 Fatty Acids/Fish Oil [Fish 1 ea PO DAILY 05/31/20 Oil 1,000 mg Capsule] Vitamin B Complex [B Complex] 1 ea PO DAILY 05/31/20 Oxycodone [Oxyir] 5 mg PO Q6H PRN PRN 5 Days #10 tab 06/02/20 predniSONE tablet 60 mg PO DAILY@0800 #28 tab 06/02/20 Surgical History: hysterectomy, - - Hysterectomy. Exploratory abdominal surgery. Psychiatric History: No pertinent psych hx MEDICATION TECH History: No pertinent MEDICATION TECH history Lives: Spouse/ Significant Other Smoking Status: Former smoker - *Family History Maternal History Items: COPD, - - in her late 60s of unknown causes. Paternal History Items: - - Denies known paternal medical history including cardiac history. Review of Systems Constitutional: Denies: Chills, Fever, Weight Change HEENT: Denies: Head Aches, Sinus Congestion, Sinus Drainage Cardiovascular: Reports: Edema. Denies: Chest Pain, Palpitations Respiratory: Reports: Cough - Chronic, Shortness of Breath. Denies: Shortness of breath at rest, Sputum production Gastrointestinal: Denies: Abdominal Pain, Nausea, Vomiting Genitourinary: Denies: Dysuria Musculoskeletal: Denies: Joint Pain, Joint Tenderness Skin: Reports: Rash - Bilateral lower extremities. Denies: Wounds Neurological: Denies: Numbness, Tingling, Focal weakness Psychiatric: Denies: Anxiety, Depression, Homicidal Ideations, Suicidal Ideations Hematologic/ Lymphatic: Denies: Easy Bruising, Easy Bleeding VTE Information - Inpt Only VTE Present on Admission: No VTE Mechan Device Prophylaxis: None VTE Pharm Prophylaxis ordered?: Yes Patient Problems: Active and Suspected Problems Acute respiratory failure with hypoxia (Acute) Petechial rash (Acute) - Physical Exam Vitals/I&O's: Vital Signs Temp Pulse Resp BP Pulse Ox 97.4 F L 129 H 26 H 159/89 H 95 06/03/20 04:02 06/03/20 04:02 06/03/20 04:02 06/03/20 04:02 06/03/20 04:02 Oxygen Flow Rate (L/min) 4 Oxygen Delivery Method Bi-pap Weight: 100.5 kg Body Mass Index (BMI) 34.7 General: Alert, Oriented x3, Cooperative HEENT: Atraumatic, PERRLA, EOMI, Normocephalic Neck: Supple, No JVD, Negative Carotid Bruits Lungs: Rhonchi, Short of Breath, Using Accessory Muscles, Wheezes, - - Conversational dyspnea Cardiovascular: Normal S1, Normal S2, No murmurs, Tachycardic, - Abdomen: Bowel Sounds Present, Soft, Non Tender Extremities: Capillary Refill Less than 3 Seconds, Edema - Bilateral lower extremities Skin: - - Petechiae and purplish rash on bilateral lower extremities. Musculoskeletal: No Tenderness to Palpation of Joints or Extremities Neurological: Cranial nerves II-XII grossly intact Psych/Mental Status: Normal Affect, Appropriate Laboratory Results 06/03/20 03:00: WBC 15.8 H, RBC 3.94 L, Hgb 11.4 L, Hct 36.8 L, MCV 93.4, MCH 28.9, MCHC 31.0 L, RDW Std Deviation 44.8 H, RDW Coeff of Sarah 13.0, Plt Count 468 H, MPV 9.8, Immature Gran % (Auto) 1.200 H, Neut % (Auto) 80.8 H, Lymph % (Auto) 10.3 L, [place] % (Auto) 7.6, Eos % (Auto) 0.0, Baso % (Auto) 0.1, Absolute Neuts (auto) 12.7 H, Absolute Lymphs (auto) 1.63, Nucleated RBC % 0 06/03/20 03:00: Sodium 141, Potassium 3.7, Chloride 108 H, Carbon Dioxide 29.0, Anion Gap 4 L, BUN 13, Creatinine 0.92, Estim Creat Clear Calc 58.49, Est GFR (MDRD) Af Amer 78, Est GFR (MDRD) Non-Af 65, BUN/Creatinine Ratio 14.1, Glucose 123 H, Calcium 8.1 L, Troponin I 0.022 06/03/20 03:00: B-Natriuretic Peptide 479.3 H 06/03/20 03:26: Specimen Type ART, Sample Site R Radial, pH 7.31 L, Bicarbonate Actual 27.1 H, Total CO2 29, Base Excess 1, O2 Saturation 96, O2 % 4, ABG pCO2 54.2 H, ABG pO2 93, Fahad Test Positive, O2 Delivery Device Cannula Current Medications Magnesium Sulfate 2 gm/ Sodium (Chloride) 104 mls @ 52 mls/hr IV X1 ONE Stop: 06/03/20 06:06 Assessment/Plan All Active Problems Acute respiratory failure with hypoxia (Acute) Petechial rash (Acute) SIRS (systemic inflammatory response syndrome) (Acute) The patient is a 65 year old F with a significant history of shortness of breath who presented with sudden onset shortness of breath that was present when she woke up from sleep and required BiPAP and multiple treatments for COPD. Acute COPD exacerbation Impression of chest x-ray is no acute cardiopulmonary process. Her last aerosol at the ED was canceled because of tachycardia. Will put patient on scheduled ipratropium. Albuterol as needed Solu-Medrol 125 mg x 1 at emergency department. Continue patient on Solu-Medrol 40 mg every 8 hours. Patient recently completed antibiotics. Will resume antibiotics at this time. Placed on BiPAP at emergency department, continued. Monitor BMP and CBC Vasculitis Was discharge home on prednisone a day before this presentation. Solu-Medrol as above. Hold home prednisone. Results of punch biopsy done on previous admission is pending. Kerlix roll to bilateral lower extremities. DVT Prophylaxis Subcutaneous Lovenox Inpatient E&M: 28425 Init Hosp L3
[2020-06-03] MEDS: Terbutaline 1 MG/ML Vial 0.25 MG SC (04:13)
[2020-06-03] MEDS: MethylPREDNISolone 125 MG/2 ML Vial IV (04:52)
--- NOTE | 2020-06-03 04:56 | EKG12_ITS ---
Test Reason : Blood Pressure : / mmHG Vent. Rate : 126 BPM Atrial Rate : 126 BPM P-R Int : 120 ms QRS Dur : 076 ms QT Int : 314 ms P-R-T Axes : 070 030 -24 degrees QTc Int : 454 ms Sinus tachycardia Nonspecific ST and T wave abnormality Abnormal ECG Confirmed by DILLON WRIGHT, JAYLEN ([id number]), film editor supervisor NATAN PRINCE ([id number]) on 06/08/2020 9:22:20 AM Referred By: YOKSATA Confirmed By:JAYLEN CARRANZA MD
--- NOTE | 2020-06-03 04:56 | ED.RN ---
PT HAVING A FEELING OF HEAVINESS IN HER CHEST. DR. TEMPLETON AWARE, EKG ORDERED. RT CALLED FOR EKG.
--- NOTE | 2020-06-03 05:19 | ED.RN ---
ATTEMPTED TO CALL REPORT TO ICU, NO ONE ANSWERED THE DOOR.
--- NOTE | 2020-06-03 05:26 | ED.RN ---
DAYAN WILL CALL BACK SHE CANNOT TAKE REPORT NOW.
--- NOTE | 2020-06-03 08:15 | ECHOCS_ITS ---
Reason For Study: Dyspnea/SOB Procedure This was a 2D Doppler, Color Flow transthoracic echocardiogram. Contrast injection was performed. The study was technically difficult. Exam performed portable in ICU/CCU. Left Ventricle Normal LV size. The estimated ejection fraction is 60 %. No evidence for diastolic dysfunction. No regional wall motion abnormalities noted. Right Ventricle Normal RV size. Normal systolic function. Atria Normal left atrium. Normal right atrium. No doppler evidence for ASD. Mitral Valve There is no mitral valve stenosis. Trivial mitral valve insufficiency. Tricuspid Valve There is no tricuspid stenosis. Trivial tricuspid valve insufficiency. Pulmonary artery systolic pressure is 35-40 mmHg. Aortic Valve Trisinus/trileaflet aortic valve. There is no aortic stenosis. No aortic valve insufficiency. Pulmonic Valve There is no pulmonic valvular stenosis. No pulmonic valve insufficiency. Great Vessels Normal aortic root. Pericardium/Pleural No pericardial effusion. Medication Diluted definity 2ml given slow IV push to enhance endocardial definition. MMode/2D Measurements & Calculations LVIDd: 5.4 cm IVSd: 0.99 cm Ao root diam: 3.3 cm LVIDs: 3.4 cm LVPWd: 1.1 cm RVDd: 3.1 cm FS: 36.4 % LAV(MOD-bp): 55.1 ml LA A4 area: 17.7 cm2 LA dimension(2D): 3.8 cm LAV(MOD-bp) Indexed: 26.2 ml/m2 LAV(MOD-sp2): 58.8 ml LAV(MOD-sp4): 49.1 ml RA A4 area: 14.5 cm2 Doppler Measurements & Calculations MV E max matt: 92.8 cm/sec Lat Peak E' Matt: 8.7 cm/sec Med Peak E' Matt: 6.3 cm/sec MV A max matt: 65.5 cm/sec E/E' lat: 10.6 E/E' med: 14.7 MV E/A: 1.4 Ao V2 max: 144.1 cm/sec LV V1 max: 100.0 cm/sec PA V2 max: 87.6 cm/sec Ao max P.3 mmHg LV V1 max P.0 mmHg Ao V2 mean: 109.0 cm/sec Ao mean P.1 mmHg Ao V2 VTI: 26.9 cm TR max matt: 274.0 cm/sec TR max P.0 mmHg Interpretation Summary The estimated ejection fraction is 60 %. No evidence for diastolic dysfunction. Trivial mitral valve insufficiency. Trivial tricuspid valve insufficiency. The study was technically difficult. Contrast injection was performed. Ordering Physician: Tamela Mejia Referring Physician: Alyce Luis Performed By: Claudette Bauer, ERICA, RVT
[2020-06-03] MEDS: Insulin Lispro 100 UNIT/ML INSULN.PEN SC ×3 (09:03→17:59)
[2020-06-03 09:10] LABS: Bedside Glucose 166 mg/dL (70-110)
--- NOTE | 2020-06-03 10:06 | CASEMGMT ---
Chart Review: Patient was admitted 05/31/20-06/02/20 for vasculitis and COPD exacerbation. Patient returned 06/03/20 for SOB and COPD exacerbation. Patient was placed on Bipap in ED and is currently on 8lpm. Patient was on room air at discharge on 06/02/20. See RN CM assessment from 06/01/20. Will monitor for need for home oxygen and watch to schedule outpatient pulmonary appt at discharge.
[2020-06-03] MEDS: Enoxaparin 40 MG/0.4 ML Syringe SC (10:08)
[2020-06-03] MEDS: 0.9% Saline Lock 10 ML Syringe IV ×4 (10:09→18:00)
[2020-06-03] MEDS: Furosemide 40 MG/4 ML Vial IV ×2 (10:09→18:00)
[2020-06-03] MEDS: Labetalol (Prefilled) 20 MG/4 ML 10 MG IV (10:09)
--- NOTE | 2020-06-03 10:09 | PCM.CON.CC ---
Problem List (1) Acute respiratory failure with hypoxia Status: Acute (2) COPD (chronic obstructive pulmonary disease) Status: Chronic Qualifiers: COPD type: emphysema Emphysema type: centrilobular Qualified Code(s): J43.2 - Centrilobular emphysema (3) Petechial rash Status: Acute (4) History of tobacco abuse Status: Chronic Reason for Consult Date of Consultation: 06/03/20 Reason for Consultation: Respiratory failure History of Present Illness: The patient is a 65 year old F, with past medical history listed below, who [facility] secondary to acute onset of shortness of breath that woke her from sleeping. Patient was recently admitted with complaints of lower extremity vasculitis and was placed on steroid therapy with improvement. Patient had a walking oximetry yesterday and was discharged home. After being home, patient reported that she was able to fold 2 loads of laundry and put them away and had a relatively good day. Patient went to sleep in the chair and was doing well. Patient woke up suddenly at 2:00 in the morning with severe shortness of breath. EMS was called and she was brought to the emergency room for further evaluation. In the ER, patient was given aerosol therapy without significant improvement. Patient was initiated on BiPAP therapy secondary to an 85% saturation on room air. Patient was noted to continue to be wheezing and dyspneic and there was some discussion of possible intubation. ABG showed a mild respiratory acidosis prior to placing on BiPAP therapy. Patient had a leukocytosis, but this was thought to be secondary to steroids. Patient was also noted to have a blood pressure of 160s over 100s with a tachycardia in the 120 to 130 bpm. Patient was given terbutaline, magnesium and admitted to the intensive care unit for further evaluation. Since being in the intensive care unit, patient has stabilized. Patient has been on 6 to 8 L to maintain saturations. Patient states that her legs feel better, but this is much more respiratory complaints than she had even on her initial presentation for her legs. Patient does carry a diagnosis of COPD and is on baseline Trelegy, but is unaware of her severity. Patient quit smoking approximately 3 years ago. Patient does not take antihypertensive medications at baseline. Patient is not a known of LEOPOLDO patient. Patient does state that her lesions on her legs have developed blisters and have been popping and leaking yesterday evening. Ambulation is much improved compared to previous. Review of systems otherwise negative from a constitutional, HEENT, respiratory, cardiovascular, GI, genitourinary, musculoskeletal, skin, neurologic, psychiatric and hematologic system unless stated above. Past Medical History Past Medical History (Chronic Problems): Chronic Problems COPD with exacerbation (Chronic) COPD (chronic obstructive pulmonary disease) (Chronic) History of tobacco abuse (Chronic) Allergies No Known Allergies Allergy (Verified 05/31/20 13:55) Home Medications: Ambulatory Orders Medication Instructions Recorded Ascorbic Acid [Vitamin C] 1,000 mg PO DAILY 05/31/20 Calcium Carbonate/Vitamin D3 1 ea PO DAILY 05/31/20 [Calcium 600 + Vit D Tablet] Cholecalciferol (Vitamin D3) 2,000 unit PO DAILY 05/31/20 [Vitamin D3] Fluticasone/Umeclidin/Vilanter 1 ea IH Q6H PRN PRN 05/31/20 [Trelegy Ellipta 100-62.5-25] Garlic 1 ea PO DAILY 05/31/20 [place]-3 Fatty Acids/Fish Oil [Fish 1 ea PO DAILY 05/31/20 Oil 1,000 mg Capsule] Vitamin B Complex [B Complex] 1 ea PO DAILY 05/31/20 Oxycodone [Oxyir] 5 mg PO Q6H PRN PRN 5 Days #10 tab 06/02/20 predniSONE tablet 60 mg PO DAILY@0800 #28 tab 06/02/20 Surgical History: hysterectomy, - - Hysterectomy. Exploratory abdominal surgery. 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 Paternal History Items: - - Denies known paternal medical history including cardiac history. Review of Systems Comment: See HPI Patient Problems: Active and Suspected Problems Acute respiratory failure with hypoxia (Acute) Petechial rash (Acute) Objective: All imaging was personally reviewed. Chest x-ray shows increased cephalization compared to previous. Patient has never had an echocardiogram or PFT at [facility]. - Physical Exam Vitals/I&O's: Vital Signs Temp Pulse Resp BP Pulse Ox 36.8 C 105 H 25 H 171/97 H 99 06/03/20 08:29 06/03/20 08:52 08/05/20 08:50 06/03/20 08:50 06/03/20 09:00 Oxygen Flow Rate (L/min) 6 Oxygen Delivery Method Nasal Cannula Weight: 100.1 kg Body Mass Index (BMI) 36.7 Intake and Output for Last 24 Hours 06/01/20 06/02/20 06/03/20 23:59 23:59 23:59 Intake Total 104 / 104 Balance 104 / 104 General: Alert, Oriented x3, Cooperative, - - Mild to moderate conversational dyspnea. Obese. HEENT: Atraumatic, PERRLA, EOMI, Normocephalic, - - Slight scleral injection without icterus Oral: Moist Mucosa, No Gingival or Mucosal Lesions/ Ulcerations Neck: Supple, No JVD, No Nodes, Trachea Midline Lungs: No rhonchi, Rales - Right greater than left base, Wheezes - Sporadic, - - Symmetric expansion. Cardiovascular: Normal S1, Normal S2, No murmurs, No rub noted, No Gallop, Tachycardic Abdomen: Bowel Sounds Present, Soft, Non Tender, Non-Distended, Obese Extremities: No clubbing, No cyanosis, Edema - Bilateral lower extremities are improved Skin: - - Erythema and swelling of lower extremities is improved. Purpura have developed blisters with several open areas Musculoskeletal: No Tenderness to Palpation of Joints or Extremities Lymphatic: No Cervical, Supraclavicular, or Inguinal Adenopathy Neurological: Cranial nerves II-XII grossly intact, Neuro grossly intact, Motor Exam 5/5 strength throughout Psych/Mental Status: Alert and oriented to time, place, person, mood and affect Laboratory Results 06/03/20 03:00: WBC 15.8 H, RBC 3.94 L, Hgb 11.4 L, Hct 36.8 L, MCV 93.4, MCH 28.9, MCHC 31.0 L, RDW Std Deviation 44.8 H, RDW Coeff of Sarah 13.0, Plt Count 468 H, MPV 9.8, Immature Gran % (Auto) 1.200 H, Neut % (Auto) 80.8 H, Lymph % (Auto) 10.3 L, [place] % (Auto) 7.6, Eos % (Auto) 0.0, Baso % (Auto) 0.1, Absolute Neuts (auto) 12.7 H, Absolute Lymphs (auto) 1.63, Nucleated RBC % 0 06/03/20 03:00: Sodium 141, Potassium 3.7, Chloride 108 H, Carbon Dioxide 29.0, Anion Gap 4 L, BUN 13, Creatinine 0.92, Estim Creat Clear Calc 58.49, Est GFR (MDRD) Af Amer 78, Est GFR (MDRD) Non-Af 65, BUN/Creatinine Ratio 14.1, Glucose 123 H, Calcium 8.1 L, Troponin I 0.022 06/03/20 03:00: B-Natriuretic Peptide 479.3 H 06/03/20 03:26: Specimen Type ART, Sample Site R Radial, pH 7.31 L, Bicarbonate Actual 27.1 H, Total CO2 29, Base Excess 1, O2 Saturation 96, O2 % 4, ABG pCO2 54.2 H, ABG pO2 93, Fahad Test Positive, O2 Delivery Device Cannula 06/03/20 09:01: POC Glucose 166 H Current Medications Acetaminophen (Tylenol) 650 mg PO Q6H PRN PRN PRN Reason: Pain Score 1-10/Temp > 100.7 F Albuterol Sulfate (Ventolin Aerosols) 2.5 mg INHALATION Q2H PRN PRN PRN Reason: SOB/Wheezing Dextrose (D50w Syringe) 0 gm IV X1 PRN; Protocol PRN Reason: Hypoglycemia Enoxaparin Sodium (Lovenox) 40 mg SC DAILY JOSE Glucagon () 1 mg IM .X1 PRN PRN Reason: Hypoglycemia Sodium Chloride () 250 mls @ 15 mls/hr IV .[id number] PRN PRN Reason: Saline Flush Sodium Chloride () 250 mls @ 15 mls/hr IV .[id number] PRN PRN Reason: Additional IVPB Infusion Insulin Human Lispro (Humalog Kwikpen (Bkc)) 0 unit SC Q6 JOSE; Protocol Last Admin: 06/03/20 09:03 Dose: 1 units Documented by: Ipratropium [place] (Atrovent) 0.5 mg INHALATION Q4H.RT JOSE Methylprednisolone (Solu-Medrol) 40 mg IV Q8 JOSE Nutritional Formula (Lactose Free) (Ensure Enlive) 120 ml PO 4X/DAY JOSE Ondansetron HCl (Zofran) 4 mg IV Q8H PRN PRN PRN Reason: NAUSEA/VOMITING Sodium Chloride () 10 - 40 ml IV UD PRN PRN Reason: SALINE FLUSH Clinical Impression(s) from Imaging Studies Chest X-Ray 06/03/20 02:51 IMPRESSION: Negative x-ray examination of the chest. No interval change. Electronically Signed: Hector Franklin, at 3:41 EDT Tel , Service support , Assessment/Plan Active and Suspected Problems Acute respiratory failure with hypoxia (Acute) Petechial rash (Acute) RECOMMENDATIONS: 1. Administer Lasix 2. Aggressive blood pressure control 3. Obtain echocardiogram 4. Continue steroids at previous dosing 5. Wean oxygen as tolerated 6. Consider BiPAP with sleep IMPRESSIONS: 1. Acute hypoxic respiratory failure secondary to probable flash pulmonary edema secondary to hypertensive emergency Patient does carry a diagnosis of COPD and has emphysematous changes on CT of the chest. However, acute onset with sleep would be unlikely for a COPD exacerbation. Patient did present with high systolic and diastolic blood pressures and was recently placed on high steroid therapy secondary to her vasculitis. Will obtain an echocardiogram for evaluation, but clinical concern for acute diastolic congestive heart failure secondary to hypertensive emergency and tachycardia is suspected. Patient will be given Lasix and aggressive blood pressure control. 2. Probable congestive heart failure Multiple risk factors for congestive heart failure including obesity, tobacco history and age. Will obtain an echocardiogram for evaluation. 3. Vasculitis of unclear etiology Biopsies were obtained initially. Patient appears to be responding well to steroid therapy. We will continue this therapy for now. Await biopsy results. Wound care of the lower extremities given open areas. 4. COPD Patient is no longer smoking, but does have significant emphysematous changes noted on CT scan of the chest. Reasonable to continue with DuoNeb and albuterol aerosols. Steroids may help situation. Patient will have compromised pulmonary mechanics secondary to lower extremity pain. Patient should have outpatient work-up for quantification clarification of lung function and evaluation for need for supplemental oxygen. Patient is on triple therapy as an outpatient, but it is unclear if this was following pulmonary function testing for COPD/asthma overlap syndrome. Overnight oxygen may be secondary to untreated sleep apnea versus advanced COPD. Given negative lower extremity Dopplers and CTA of the chest, pulmonary embolism is unlikely. 5. SIRS secondary to #1 Likely okay to discontinue antibiotics from my perspective. Autoimmune work-up has been ordered and punch biopsy is currently being processed. UA has been ordered, but no results are available. 6. Advanced age/obesity Complicates care, management, recovery and prognosis. Unclear if patient follows regularly with her physician. TIME: 35 minutes critical care time spent addressing patient's acute hypoxic respiratory failure, probable CHF, vasculitis, review of all data and collaboration with care team (9 AM to 10:20 AM) [id number]: [id number] Critical care first hour
[2020-06-03 11:55] LABS: Bedside Glucose 182 mg/dL (70-110)
--- NOTE | 2020-06-03 13:05 | PN_ITS ---
Patient Problems: Active and Suspected Problems Acute respiratory failure with hypoxia (Acute) Petechial rash (Acute) Subjective: Patient seen and examined. Patient discharged yesterday following treatment for vasculitis. Patient states she felt well day of discharge. She woke up in the middle of the night with sudden onset severe shortness of breath and return to the emergency room for evaluation. Shortness of breath currently improved. Complains of intermittent nonproductive cough. Denies fever, chills. Patient states lower extremity blistering areas are opening up and draining yellow fluid. - Physical Exam Vitals/I&O's: Vital Signs Temp Pulse Resp BP Pulse Ox 98.7 F 91 21 H 165/88 H 99 06/03/20 12:00 06/03/20 12:00 06/03/20 12:00 06/03/20 12:00 06/03/20 12:00 Oxygen Flow Rate (L/min) 3 Oxygen Delivery Method Nasal Cannula Weight: 220 lb 10.923 oz Body Mass Index (BMI) 36.7 Intake and Output for Last 24 Hours 06/01/20 06/02/20 06/03/20 23:59 23:59 23:59 Intake Total 704 / 704 Output Total 1000 / 1000 Balance -296 / -296 General: Alert, Oriented x3, Cooperative HEENT: Atraumatic, PERRLA, EOMI, Normocephalic Neck: Supple, No JVD, Negative Carotid Bruits Lungs: Diminished, Rales Cardiovascular: Regular rate, No murmurs Abdomen: Bowel Sounds Present, Soft, Non Tender, Non-Distended, Obese Extremities: No clubbing, No cyanosis, No edema Skin: - - Lower extremity purpura with blistering areas and serosanguineous fluid drainage. Musculoskeletal: No Tenderness to Palpation of Joints or Extremities Neurological: Cranial nerves II-XII grossly intact, Neuro grossly intact Psych/Mental Status: Normal Affect, Appropriate Laboratory Results 06/03/20 03:00: WBC 15.8 H, RBC 3.94 L, Hgb 11.4 L, Hct 36.8 L, MCV 93.4, MCH 28.9, MCHC 31.0 L, RDW Std Deviation 44.8 H, RDW Coeff of Sarah 13.0, Plt Count 468 H, MPV 9.8, Immature Gran % (Auto) 1.200 H, Neut % (Auto) 80.8 H, Lymph % (Auto) 10.3 L, [place] % (Auto) 7.6, Eos % (Auto) 0.0, Baso % (Auto) 0.1, Absolute Neuts (auto) 12.7 H, Absolute Lymphs (auto) 1.63, Nucleated RBC % 0 06/03/20 03:00: Sodium 141, Potassium 3.7, Chloride 108 H, Carbon Dioxide 29.0, Anion Gap 4 L, BUN 13, Creatinine 0.92, Estim Creat Clear Calc 58.49, Est GFR (MDRD) Af Amer 78, Est GFR (MDRD) Non-Af 65, BUN/Creatinine Ratio 14.1, Glucose 123 H, Calcium 8.1 L, Troponin I 0.022 06/03/20 03:00: B-Natriuretic Peptide 479.3 H 06/03/20 03:26: Specimen Type ART, Sample Site R Radial, pH 7.31 L, Bicarbonate Actual 27.1 H, Total CO2 29, Base Excess 1, O2 Saturation 96, O2 % 4, ABG pCO2 54.2 H, ABG pO2 93, Fahad Test Positive, O2 Delivery Device Cannula 06/03/20 09:01: POC Glucose 166 H 06/03/20 11:47: POC Glucose 182 H Current Medications Acetaminophen (Tylenol) 650 mg PO Q6H PRN PRN PRN Reason: Pain Score 1-10/Temp > 100.7 F Albuterol Sulfate (Ventolin Aerosols) 2.5 mg INHALATION Q2H PRN PRN PRN Reason: SOB/Wheezing Dextrose (D50w Syringe) 0 gm IV X1 PRN; Protocol PRN Reason: Hypoglycemia Enoxaparin Sodium (Lovenox) 40 mg SC DAILY [facility] [place] Last Admin: 06/03/20 10:08 Dose: 40 mg Documented by: Glucagon () 1 mg IM .X1 PRN PRN Reason: Hypoglycemia Sodium Chloride () 250 mls @ 15 mls/hr IV .[id number] PRN PRN Reason: Saline Flush Sodium Chloride () 250 mls @ 15 mls/hr IV .[id number] PRN PRN Reason: Additional IVPB Infusion Insulin Human Lispro (Humalog [place]jo[place]en (Bkc)) 0 unit SC Q6 JOSE; Protocol Last Admin: 08/05/20 11:47 Dose: 1 units Documented by: Ipratropium [place] (Atrovent) 0.5 mg INHALATION Q4H.RT JOSE Methylprednisolone (Solu-Medrol) 40 mg IV Q8 [facility] Last Admin: 06/03/20 11:45 Dose: 40 mg Documented by: Nutritional Formula (Lactose Free) (Ensure Enlive) 120 ml PO TID JOSE Ondansetron HCl (Zofran) 4 mg IV Q8H PRN PRN PRN Reason: NAUSEA/VOMITING Sodium Chloride () 10 - 40 ml IV UD PRN PRN Reason: SALINE FLUSH Last Admin: 06/03/20 11:45 Dose: 10 ml Documented by: Medical Necessity - Tobacco Use Smoking Status: Former smoker Assessment/Plan All Active Problems Acute respiratory failure with hypoxia (Acute) Petechial rash (Acute) SIRS (systemic inflammatory response syndrome) (Acute) 1. Acute hypoxic respiratory failure secondary to suspected acute CHF, unknown subtype-chest x-ray on admission clear. BNP 479. Symptoms improved following IV Lasix. Initially placed on BiPAP. Oxygen now stable on nasal cannula. Continue supplement oxygen to maintain O2 at or above 90%. Await echocardiogram results. 2. Leukocytoclastic vasculitis-per punch biopsy. Improving. Continue steroid treatment. Wound RN consult. Outpatient follow-up with dermatology, Sukhwinder Caldera. 3. Chronic COPD-do not suspect acute exacerbation given sudden onset shortness of breath. On steroids secondary to #2. As needed albuterol aerosol. 4. Hypertensive urgency-blood pressure improved however remains above goal. Will begin lisinopril 10 mg daily. PRN hydralazine for systolic blood pressure greater than 160. 5. Former tobacco use-quit 3 and half years ago. Encouraged continued cessation. DVT prophylaxis- Lovenox sc This patient was seen by HUNTER Ramirez under the supervision of Dr. Manzo.
[2020-06-03] MEDS: Lisinopril 10 MG Tablet PO (13:58)
[2020-06-03] MEDS: hydrALAZINE 20 MG/ML Vial 10 MG IV (13:59)
--- NOTE | 2020-06-03 15:51 | NURSING ---
Report called to TANYA Holland on PCU at this time.
[2020-06-03 18:00] LABS: Bedside Glucose 160 mg/dL (70-110)
[2020-06-03] MEDS: Carvedilol 6.25 MG Tablet PO (22:00)
[2020-06-03 22:06] LABS: Bedside Glucose 115 mg/dL (70-110)
[2020-06-04] VITALS (12 sets, daily range): BP systolic 141–167; BP diastolic 84–92; PULSE 69–116; RESP 18; TEMP 36.4–37.1; O2SAT 92–97
[2020-06-04] MEDS: Ipratropium/Albuterol Sulfate 3 ML AMPUL.NEB INHALATION (02:00)
--- NOTE | 2020-06-04 03:20 | CPS ---
REFUSED CANT TOLERATE.
[2020-06-04] MEDS: 0.9% Saline Lock 10 ML Syringe IV ×3 (05:14→13:37)
[2020-06-04 06:17] LABS: Absolute Lymphocyte Count 0.84 X10^3/uL (0.83-4.51); Absolute Neutrophil Count 8.9 X10^3/uL (2.0-7.7); Hematocrit 36.6 % (37-47); Hemoglobin 11.3 g/dL (12.0-15.0); Lymphocyte # 0.84 X10^3/ul (4.0); Lymphocyte % 8.2 % (19-41); Mean Corp Hgb Conc 30.9 g/dL (32-36); Mean Corpuscular Hgb 28.8 pg (27.0-32.0); Mean Corpuscular Volume 93.1 fL (81-99); Monocyte# 0.43 X10^3/uL; Monocyte% 4.2 % (0-10); NRBC Flagged by Analyzer 0 % (0-5); Neutrophil # 8.86 X10^3/uL (2.7-7.7); Neutrophil % 86.7 % (47-70); Platelet Count 374 K/mm3 (150-450); RBC Distribution Width SD 44.5 fl (35.1-43.9); Red Blood Count 3.93 M/mm3 (4.2-5.4); White Blood Count 10.2 K/mm3 (4.4-11.0)
[2020-06-04] MEDS: Insulin Lispro 100 UNIT/ML INSULN.PEN SC (06:25)
[2020-06-04 06:34] LABS: Anion Gap 4 (5-15); BUN 22 mg/dL (7-18); BUN/Creat Ratio 21.6 RATIO (10-20); Calcium,Total 8.4 mg/dL (8.5-10.1); Chloride 103 mmol/L (98-107); Creatinine, Serum 1.02 mg/dL (0.55-1.02); EST Glomerular Filtration Rate 58 mL/min (>60); Est Glom Filt Rate - Afr Amer 70 mL/min (>60); Estimated Creatinine Clearance 48.82 ml/min; Glucose 167 mg/dL (74-106); Sodium Level 138 mmol/L (136-145)
[2020-06-04 06:36] LABS: Bedside Glucose 159 mg/dL (70-110)
[2020-06-04] MEDS: Furosemide 40 MG/4 ML Vial IV (08:07)
--- NOTE | 2020-06-04 08:42 | PCM.PN.HOSP ---
Patient Problems: Active and Suspected Problems Acute respiratory failure with hypoxia (Acute) Petechial rash (Acute) Subjective: Doing well today, no issues overnight. Just placed to room air this morning. Vitals/I&O's: Vital Signs Temp Pulse Resp BP Pulse Ox 97.9 F 95 18 152/84 H 95 06/04/20 02:50 06/04/20 06:46 06/04/20 03:15 06/04/20 02:50 06/04/20 06:28 Oxygen Flow Rate (L/min) 93 Oxygen Delivery Method Room Air Weight: 212 lb 8.41 oz Body Mass Index (BMI) 36.7 Intake and Output for Last 24 Hours 06/02/20 06/03/20 06/04/20 23:59 23:59 23:59 Intake Total 1244 / 1544 450 / 450 Output Total 1750 / 3150 1600 / 1600 Balance -506 / -1606 -1150 / -1150 General: Alert, Oriented x3, Cooperative, No apparent distress HEENT: Atraumatic, PERRLA, EOMI, Normocephalic Oral: Moist Mucosa Neck: Supple, No JVD Lungs: Clear to auscultation, Normal air movement, No rhonchi, No rales, Diminished, Wheezes Cardiovascular: Regular rate, Regular Rhythm, Normal S1, Normal S2, No murmurs Abdomen: Soft, Non Tender, Non-Distended, No Hepato-splenomegaly Extremities: No edema, Capillary Refill Less than 3 Seconds Skin: No breakdown, - - Her palpable violaceous rash is significantly improved since her first admission Neurological: Neuro grossly intact, Sensory exam intact to light touch and pain Psych/Mental Status: Normal Affect, Appropriate Laboratory Results 06/03/20 09:01: POC Glucose 166 H 06/03/20 11:47: POC Glucose 182 H 06/03/20 17:55: POC Glucose 160 H 06/03/20 21:59: POC Glucose 115 H 06/04/20 06:04: WBC 10.2, RBC 3.93 L, Hgb 11.3 L, Hct 36.6 L, MCV 93.1, MCH 28.8, MCHC 30.9 L, RDW Std Deviation 44.5 H, RDW Coeff of Sarah 13.0, Plt Count 374, MPV 10.0, Immature Gran % (Auto) 0.900, Neut % (Auto) 86.7 H, Lymph % (Auto) 8.2 L, [place] % (Auto) 4.2, Eos % (Auto) 0.0, Baso % (Auto) 0.0, Absolute Neuts (auto) 8.9 H, Absolute Lymphs (auto) 0.84, Nucleated RBC % 0 06/04/20 06:04: Sodium 138, Potassium 4.0, Chloride 103, Carbon Dioxide 31.0, Anion Gap 4 L, BUN 22 H, Creatinine 1.02, Estim Creat Clear Calc 48.82, Est GFR (MDRD) Af Amer 70, Est GFR (MDRD) Non-Af 58 L, BUN/Creatinine Ratio 21.6 H, Glucose 167 H, Calcium 8.4 L 06/04/20 06:22: POC Glucose 159 H Current Medications Acetaminophen (Tylenol) 650 mg PO Q6H PRN PRN PRN Reason: Pain Score 1-10/Temp > 100.7 F Albuterol/Ipratropium (Duoneb) 3 ml INHALATION Q4HWA.RT PRN PRN Reason: SOB/WHEEZING Last Admin: 06/04/20 02:00 Dose: 3 ml Documented by: Carvedilol (Coreg) 6.25 mg PO BID [facility] Last Admin: 06/03/20 22:00 Dose: 6.25 mg Documented by: Dextrose (D50w Syringe) 0 gm IV X1 PRN; Protocol PRN Reason: Hypoglycemia Enoxaparin Sodium (Lovenox) 40 mg SC DAILY [facility] Last Admin: 06/03/20 10:08 Dose: 40 mg Documented by: Glucagon () 1 mg IM .X1 PRN PRN Reason: Hypoglycemia Hydralazine HCl (Apresoline Iv) 10 mg IV Q4H PRN PRN PRN Reason: BLOOD PRESSURE Last Admin: 06/03/20 13:59 Dose: 10 mg Documented by: Sodium Chloride () 250 mls @ 15 mls/hr IV .[id number] PRN PRN Reason: Saline Flush Sodium Chloride () 250 mls @ 15 mls/hr IV .[id number] PRN PRN Reason: Additional IVPB Infusion Insulin Human Lispro (Humalog Kwikpen (Bkc)) 0 unit SC Q6 JOSE; Protocol Last Admin: 06/04/20 06:25 Dose: 1 units Documented by: Lisinopril (Zestril) 10 mg PO DAILY [facility] Last Admin: 06/03/20 13:58 Dose: 10 mg Documented by: Methylprednisolone (Solu-Medrol) 40 mg IV Q8 [facility] Last Admin: 06/04/20 05:14 Dose: 40 mg Documented by: Nutritional Formula (Lactose Free) (Ensure Enlive) 120 ml PO TID [facility] Last Admin: 06/04/20 05:14 Dose: 120 ml Documented by: Ondansetron HCl (Zofran) 4 mg IV Q8H PRN PRN PRN Reason: NAUSEA/VOMITING Sodium Chloride () 10 - 40 ml IV UD PRN PRN Reason: SALINE FLUSH Last Admin: 06/04/20 08:07 Dose: 10 ml Documented by: STROKE Vital Signs/Narrative: Vital Signs Pulse Pulse Ox 06/04/20 06:46 95 06/04/20 06:28 95 06/04/20 04:54 95 Medical Necessity - Tobacco Use Smoking Status: Former smoker Assessment/Plan All Active Problems Acute respiratory failure with hypoxia (Acute) Petechial rash (Acute) SIRS (systemic inflammatory response syndrome) (Acute) 1. Acute hypoxic respiratory failure secondary to flash pulmonary edema with pulmonary hypertension from steroid use and hypertensive urgency/COPD exacerbation -This is likely secondary to her steroid use -We will continue with IV Lasix and treat her blood pressure with lisinopril and Coreg twice daily -Continue with her steroids for her COPD 2. Leukoclastic vasculitis -She will need to follow-up with dermatology -Rash is significantly improving -Continue with her p.o. steroids on discharge DVT: Lovenox Inpatient E&M: 32455 Subs Hosp L2
[2020-06-04] MEDS: Enoxaparin 40 MG/0.4 ML Syringe SC (08:58)
[2020-06-04] MEDS: Carvedilol 6.25 MG Tablet PO ×2 (08:59→21:27)
[2020-06-04] MEDS: Lisinopril 10 MG Tablet PO (08:59)
[2020-06-04 11:16] LABS: Bedside Glucose 119 mg/dL (70-110)
--- NOTE | 2020-06-04 11:50 | CASEMGMT ---
Per Yoseph, pt advocate, pt would like a list of in-network local PCP's as she would like to switch her PCP at this time. In-network PCP list provided to pt at this time and also in-network DME companies in case pt needs home oxygen at discharge. All pt's/'s questions answered at this time and pt thanked this TANYA THOMAS for list. Pt voices no further questions/concerns/needs at this time. CM to follow for home oxygen and any further discharge planning/needs. [place] TANYA THOMAS
--- NOTE | 2020-06-04 12:07 | CASEMGMT ---
SW completed a Palliative Care tool on patient and she scored a 2. SW did not talk with patient about Palliative care at this time due to her score only being 2. Estrella TORREZ MSW
--- NOTE | 2020-06-04 14:39 | PCM.PN.INT ---
Subjective: Patient did okay overnight. Patient continues to have some conversational dyspnea, but oxygenation is much improved compared to previous. Patient states that she has been able to be weaned to room air and is up around the room. General: Alert, Oriented x3, Cooperative, Confused, Disoriented, - - Mild conversational dyspnea HEENT: Atraumatic, PERRLA, EOMI, - - No scleral icterus or injection Oral: Moist Mucosa, No Gingival or Mucosal Lesions/ Ulcerations Neck: Supple, No JVD, No Nodes, Trachea Midline Lungs: No rhonchi, No wheeze, No rales, Diminished Cardiovascular: Regular rate, Regular Rhythm, Normal S1, Normal S2, No murmurs, No rub noted, No Gallop Abdomen: Bowel Sounds Present, Soft, Non Tender, Obese Extremities: No clubbing, No cyanosis, Edema Skin: - - No change from previous Musculoskeletal: No Tenderness to Palpation of Joints or Extremities Lymphatic: No Cervical, Supraclavicular, or Inguinal Adenopathy Neurological: Cranial nerves II-XII grossly intact, Neuro grossly intact, Motor Exam 5/5 strength throughout Psych/Mental Status: Flat Affect Vital Signs Temp Pulse Resp BP Pulse Ox 37.1 C 92 18 141/85 H 92 06/04/20 08:57 06/04/20 08:57 06/04/20 08:57 06/04/20 08:57 06/04/20 08:57 Oxygen Flow Rate (L/min) 93 Oxygen Delivery Method Room Air Weight: 96.4 kg Body Mass Index (BMI) 36.7 Intake and Output for Last 24 Hours 06/02/20 06/03/20 06/04/20 23:59 23:59 23:59 Intake Total 1244 / 1544 1050 / 1050 Output Total 1750 / 3150 3200 / 3200 Balance -506 / -1606 -2150 / -2150 Labs (Last 48 Hours) 06/03/20 06/03/20 06/03/20 03:00 03:00 03:00 WBC 15.8 H RBC 3.94 L Hgb 11.4 L Hct 36.8 L MCV 93.4 MCH 28.9 MCHC 31.0 L RDW Std Deviation 44.8 H RDW Coeff of Sarah 13.0 Plt Count 468 H MPV 9.8 Immature Gran % (Auto) 1.200 H Neut % (Auto) 80.8 H Lymph % (Auto) 10.3 L [place] % (Auto) 7.6 Eos % (Auto) 0.0 Baso % (Auto) 0.1 Absolute Neuts (auto) 12.7 H Absolute Lymphs (auto) 1.63 Nucleated RBC % 0 Specimen Type Sample Site pH Bicarbonate Actual Total CO2 Base Excess O2 Saturation O2 % ABG pCO2 ABG pO2 Fahad Test O2 Delivery Device Sodium 141 Potassium 3.7 Chloride 108 H Carbon Dioxide 29.0 Anion Gap 4 L BUN 13 Creatinine 0.92 Estim Creat Clear Calc 58.49 Est GFR (MDRD) Af Amer 78 Est GFR (MDRD) Non-Af 65 BUN/Creatinine Ratio 14.1 Glucose 123 H Calcium 8.1 L Troponin I 0.022 B-Natriuretic Peptide 479.3 H POC Glucose 06/03/20 06/03/20 06/03/20 03:26 09:01 11:47 WBC RBC Hgb Hct MCV MCH MCHC RDW Std Deviation RDW Coeff of Sarah Plt Count MPV Immature Gran % (Auto) Neut % (Auto) Lymph % (Auto) [place] % (Auto) Eos % (Auto) Baso % (Auto) Absolute Neuts (auto) Absolute Lymphs (auto) Nucleated RBC % Specimen Type ART Sample Site R Radial pH 7.31 L Bicarbonate Actual 27.1 H Total CO2 29 Base Excess 1 O2 Saturation 96 O2 % 4 ABG pCO2 54.2 H ABG pO2 93 Fahad Test Positive O2 Delivery Device Cannula Sodium Potassium Chloride Carbon Dioxide Anion Gap BUN Creatinine Estim Creat Clear Calc Est GFR (MDRD) Af Amer Est GFR (MDRD) Non-Af BUN/Creatinine Ratio Glucose Calcium Troponin I B-Natriuretic Peptide POC Glucose 166 H 182 H 06/03/20 06/03/20 06/04/20 17:55 21:59 06:04 WBC 10.2 RBC 3.93 L Hgb 11.3 L Hct 36.6 L MCV 93.1 MCH 28.8 MCHC 30.9 L RDW Std Deviation 44.5 H RDW Coeff of Sarah 13.0 Plt Count 374 MPV 10.0 Immature Gran % (Auto) 0.900 Neut % (Auto) 86.7 H Lymph % (Auto) 8.2 L [place] % (Auto) 4.2 Eos % (Auto) 0.0 Baso % (Auto) 0.0 Absolute Neuts (auto) 8.9 H Absolute Lymphs (auto) 0.84 Nucleated RBC % 0 Specimen Type Sample Site pH Bicarbonate Actual Total CO2 Base Excess O2 Saturation O2 % ABG pCO2 ABG pO2 Fahad Test O2 Delivery Device Sodium Potassium Chloride Carbon Dioxide Anion Gap BUN Creatinine Estim Creat Clear Calc Est GFR (MDRD) Af Amer Est GFR (MDRD) Non-Af BUN/Creatinine Ratio Glucose Calcium Troponin I B-Natriuretic Peptide POC Glucose 160 H 115 H 06/04/20 06/04/20 06/04/20 06:04 06:22 11:07 WBC RBC Hgb Hct MCV MCH MCHC RDW Std Deviation RDW Coeff of Sarah Plt Count MPV Immature Gran % (Auto) Neut % (Auto) Lymph % (Auto) [place] % (Auto) Eos % (Auto) Baso % (Auto) Absolute Neuts (auto) Absolute Lymphs (auto) Nucleated RBC % Specimen Type Sample Site pH Bicarbonate Actual Total CO2 Base Excess O2 Saturation O2 % ABG pCO2 ABG pO2 Fahad Test O2 Delivery Device Sodium 138 Potassium 4.0 Chloride 103 Carbon Dioxide 31.0 Anion Gap 4 L BUN 22 H Creatinine 1.02 Estim Creat Clear Calc 48.82 Est GFR (MDRD) Af Amer 70 Est GFR (MDRD) Non-Af 58 L BUN/Creatinine Ratio 21.6 H Glucose 167 H Calcium 8.4 L Troponin I B-Natriuretic Peptide POC Glucose 159 H 119 H Medical Necessity - Tobacco Use Smoking Status: Former smoker Assessment/Plan All Active Problems Acute respiratory failure with hypoxia (Acute) Petechial rash (Acute) SIRS (systemic inflammatory response syndrome) (Acute) RECOMMENDATIONS: 1. Continue gentle diuresis 2. Aggressive blood pressure control 3. Continue blood pressure medications 4. Continue steroids at previous dosing 5. Wean oxygen as tolerated 6. Consider BiPAP with sleep IMPRESSIONS: 1. Acute hypoxic respiratory failure secondary to probable flash pulmonary edema secondary to hypertensive emergency Patient does carry a diagnosis of COPD and has emphysematous changes on CT of the chest. However, acute onset with sleep would be unlikely for a COPD exacerbation. Patient did present with high systolic and diastolic blood pressures and was recently placed on high steroid therapy secondary to her vasculitis. Echocardiogram does show elevated pulmonary artery pressures. Clinical suspicion for flash pulmonary edema and responded well to Lasix and blood pressure control. 2. Probable congestive heart failure Multiple risk factors for congestive heart failure including obesity, tobacco history and age. Will obtain an echocardiogram for evaluation. 3. Vasculitis of unclear etiology Biopsies were obtained initially. Patient appears to be responding well to steroid therapy. We will continue this therapy for now. Biopsy results noted. Wound care of the lower extremities given open areas. 4. COPD Patient is no longer smoking, but does have significant emphysematous changes noted on CT scan of the chest. Reasonable to continue with DuoNeb and albuterol aerosols. Steroids may help situation. Patient will have compromised pulmonary mechanics secondary to lower extremity pain. Patient should have outpatient work-up for quantification clarification of lung function and evaluation for need for supplemental oxygen. Patient is on triple therapy as an outpatient, but it is unclear if this was following pulmonary function testing for COPD/asthma overlap syndrome. Overnight oxygen may be secondary to untreated sleep apnea versus advanced COPD. Given negative lower extremity Dopplers and CTA of the chest, pulmonary embolism is unlikely. 5. SIRS secondary to #1 Likely okay to discontinue antibiotics from my perspective. Autoimmune work-up has been ordered and punch biopsy is currently being processed. UA has been ordered, but no results are available. 6. Advanced age/obesity Complicates care, management, recovery and prognosis. Unclear if patient follows regularly with her physician. Inpatient E&M: 11133 Subs Hosp L2
[2020-06-04 16:51] LABS: Bedside Glucose 119 mg/dL (70-110)
[2020-06-04 23:56] LABS: Bedside Glucose 121 mg/dL (70-110)
[2020-06-05] VITALS (17 sets, daily range): BP systolic 124–161; BP diastolic 68–90; PULSE 72–96; RESP 12–24; TEMP 36.7–37.1; O2SAT 92–97
[2020-06-05] MEDS: hydrALAZINE 20 MG/ML Vial 10 MG IV (02:03)
[2020-06-05] MEDS: Ipratropium/Albuterol Sulfate 3 ML AMPUL.NEB INHALATION (02:25)
[2020-06-05 06:01] LABS: Bedside Glucose 136 mg/dL (70-110)
[2020-06-05] MEDS: 0.9% Saline Lock 10 ML Syringe IV ×2 (08:27→22:17)
[2020-06-05] MEDS: Furosemide 40 MG/4 ML Vial IV (08:27)
[2020-06-05] MEDS: Carvedilol 12.5 MG Tablet PO ×2 (09:03→22:17)
[2020-06-05] MEDS: Enoxaparin 40 MG/0.4 ML Syringe SC (09:03)
[2020-06-05] MEDS: Lisinopril 10 MG Tablet PO (09:03)
--- NOTE | 2020-06-05 10:36 | PCM.PN.HOSP ---
Patient Problems: Active and Suspected Problems Acute respiratory failure with hypoxia (Acute) Petechial rash (Acute) Subjective: Had a rough night last night, had some difficulty breathing which was similar to what brought her in in the first place. Vitals/I&O's: Vital Signs Temp Pulse Resp BP Pulse Ox 98.8 F 96 18 148/68 H 92 06/05/20 09:02 06/05/20 09:02 06/05/20 09:02 06/05/20 09:02 06/05/20 09:02 Oxygen Flow Rate (L/min) 2 Oxygen Delivery Method Room Air Weight: 210 lb 5.136 oz Body Mass Index (BMI) 36.7 Intake and Output for Last 24 Hours 06/03/20 06/04/20 06/05/20 23:59 23:59 23:59 Intake Total 1244 / 1544 1690 / 1690 120 / 120 Output Total 1750 / 3150 4150 / 4150 350 / 350 Balance -506 / -1606 -2460 / -2460 -230 / -230 General: Alert, Oriented x3, Cooperative, No apparent distress HEENT: Atraumatic, PERRLA, EOMI, Normocephalic Oral: Moist Mucosa Neck: Supple, No JVD Lungs: Clear to auscultation, Normal air movement, No rhonchi, No rales, Diminished Cardiovascular: Regular rate, Regular Rhythm, Normal S1, Normal S2, No murmurs Abdomen: Soft, Non Tender, Non-Distended, No Hepato-splenomegaly Extremities: No edema, Capillary Refill Less than 3 Seconds Skin: No breakdown, - - Her palpable violaceous rash is significantly improved since her first admission Neurological: Neuro grossly intact, Sensory exam intact to light touch and pain Psych/Mental Status: Normal Affect, Appropriate Laboratory Results 06/04/20 11:07: POC Glucose 119 H 06/04/20 16:42: POC Glucose 119 H 06/04/20 23:51: POC Glucose 121 H 06/05/20 05:54: POC Glucose 136 H Current Medications Acetaminophen (Tylenol) 650 mg PO Q6H PRN PRN PRN Reason: Pain Score 1-10/Temp > 100.7 F Albuterol/Ipratropium (Duoneb) 3 ml INHALATION Q4HWA.RT PRN PRN Reason: SOB/WHEEZING Last Admin: 06/05/20 02:25 Dose: 3 ml Documented by: Carvedilol (Coreg) 12.5 mg PO BID [facility] Last Admin: 06/05/20 09:03 Dose: 12.5 mg Documented by: Dextrose (D50w Syringe) 0 gm IV X1 PRN; Protocol PRN Reason: Hypoglycemia Enoxaparin Sodium (Lovenox) 40 mg SC DAILY [facility] Last Admin: 06/05/20 09:03 Dose: 40 mg Documented by: Glucagon () 1 mg IM .X1 PRN PRN Reason: Hypoglycemia Hydralazine HCl (Apresoline Iv) 10 mg IV Q4H PRN PRN PRN Reason: BLOOD PRESSURE Last Admin: 06/05/20 02:03 Dose: 10 mg Documented by: Sodium Chloride () 250 mls @ 15 mls/hr IV .[id number] PRN PRN Reason: Saline Flush Sodium Chloride () 250 mls @ 15 mls/hr IV .[id number] PRN PRN Reason: Additional IVPB Infusion Insulin Human Lispro (Humalog Kwikpen (Bkc)) 0 unit SC Q6 [facility]; Protocol Last Admin: 06/05/20 06:24 Dose: Not Given Documented by: Lisinopril (Zestril) 10 mg PO DAILY [facility] Last Admin: 06/05/20 09:03 Dose: 10 mg Documented by: Methylprednisolone (Solu-Medrol) 40 mg IV Q8 [facility] Last Admin: 06/05/20 05:48 Dose: 40 mg Documented by: Nutritional Formula (Lactose Free) (Ensure Enlive) 120 ml PO TID [facility] Last Admin: 06/05/20 05:54 Dose: Not Given Documented by: Ondansetron HCl (Zofran) 4 mg IV Q8H PRN PRN PRN Reason: NAUSEA/VOMITING Sodium Chloride () 10 - 40 ml IV UD PRN PRN Reason: SALINE FLUSH Last Admin: 06/05/20 08:27 Dose: 10 ml Documented by: STROKE Vital Signs/Narrative: Vital Signs Temp Pulse Resp BP Pulse Ox 06/05/20 09:02 98.8 F 96 18 148/68 H 92 06/05/20 07:20 88 21 H 96 06/05/20 06:47 77 Medical Necessity - Tobacco Use Smoking Status: Former smoker Assessment/Plan All Active Problems Acute respiratory failure with hypoxia (Acute) Petechial rash (Acute) SIRS (systemic inflammatory response syndrome) (Acute) 1. Acute hypoxic respiratory failure secondary to flash pulmonary edema with pulmonary hypertension from steroid use and hypertensive urgency/COPD exacerbation -This is likely secondary to her steroid use -We will continue with IV Lasix and treat her blood pressure with lisinopril and Coreg twice daily -Continue with her steroids for her COPD -We will obtain a nocturnal pulse ox, and see if she qualifies for home nocturnal O2 2. Leukoclastic vasculitis -She will need to follow-up with dermatology -Rash is significantly improving -Continue with her p.o. steroids on discharge DVT: Lovenox Inpatient E&M: 64902 Subs Hosp L2
--- NOTE | 2020-06-05 11:02 | PCM.PN.PUL ---
Patient Problems: Active and Suspected Problems Acute respiratory failure with hypoxia (Acute) Petechial rash (Acute) Subjective: Patient did well yesterday evening. However, overnight, patient had significant difficulty with shortness of breath requiring BiPAP rescue and supplemental oxygen. Patient was hypertensive during those episodes. Patient states that she feels tired this morning, but otherwise feels her respiratory status is improving. - Physical Exam Vitals/I&O's: Vital Signs Temp Pulse Resp BP Pulse Ox 37.1 C 96 18 148/68 H 92 06/05/20 09:02 06/05/20 09:02 06/05/20 09:02 06/05/20 09:02 06/05/20 09:02 Oxygen Flow Rate (L/min) 2 Oxygen Delivery Method Room Air Weight: 95.4 kg Body Mass Index (BMI) 36.7 Intake and Output for Last 24 Hours 06/03/20 06/04/20 06/05/20 23:59 23:59 23:59 Intake Total 1244 / 1544 1690 / 1690 120 / 120 Output Total 1750 / 3150 4150 / 4150 350 / 350 Balance -506 / -1606 -2460 / -2460 -230 / -230 General: Alert, Oriented x3, Cooperative, - - Some conversational dyspnea noted. HEENT: Atraumatic, PERRLA, EOMI, Normocephalic Oral: Moist Mucosa, No Gingival or Mucosal Lesions/ Ulcerations Neck: Supple, No JVD, No Nodes, Trachea Midline Lungs: No rhonchi, No rales, Wheezes Cardiovascular: Regular rate, Regular Rhythm, Normal S1, Normal S2, No murmurs, No rub noted, No Gallop Abdomen: Bowel Sounds Present, Soft, Non Tender, Non-Distended Extremities: No clubbing, No cyanosis, Edema Skin: - - Rash continues to improve. Petechia are almost resolved. Musculoskeletal: No Tenderness to Palpation of Joints or Extremities Lymphatic: No Cervical, Supraclavicular, or Inguinal Adenopathy Neurological: Cranial nerves II-XII grossly intact, Neuro grossly intact, Motor Exam 5/5 strength throughout Psych/Mental Status: Alert and oriented to time, place, person, mood and affect Laboratory Results 06/04/20 11:07: POC Glucose 119 H 06/04/20 16:42: POC Glucose 119 H 06/04/20 23:51: POC Glucose 121 H 06/05/20 05:54: POC Glucose 136 H Current Medications Acetaminophen (Tylenol) 650 mg PO Q6H PRN PRN PRN Reason: Pain Score 1-10/Temp > 100.7 F Albuterol/Ipratropium (Duoneb) 3 ml INHALATION Q4HWA.RT PRN PRN Reason: SOB/WHEEZING Last Admin: 06/05/20 02:25 Dose: 3 ml Documented by: Carvedilol (Coreg) 12.5 mg PO BID [facility] Last Admin: 06/05/20 09:03 Dose: 12.5 mg Documented by: Dextrose (D50w Syringe) 0 gm IV X1 PRN; Protocol PRN Reason: Hypoglycemia Enoxaparin Sodium (Lovenox) 40 mg SC DAILY [facility] Last Admin: 06/05/20 09:03 Dose: 40 mg Documented by: Glucagon () 1 mg IM .X1 PRN PRN Reason: Hypoglycemia Hydralazine HCl (Apresoline Iv) 10 mg IV Q4H PRN PRN PRN Reason: BLOOD PRESSURE Last Admin: 06/05/20 02:03 Dose: 10 mg Documented by: Sodium Chloride () 250 mls @ 15 mls/hr IV .[id number] PRN PRN Reason: Saline Flush Sodium Chloride () 250 mls @ 15 mls/hr IV .[id number] PRN PRN Reason: Additional IVPB Infusion Insulin Human Lispro (Humalog Kwikpen (Bkc)) 0 unit SC Q6 [facility]; Protocol Last Admin: 06/05/20 06:24 Dose: Not Given Documented by: Lisinopril (Zestril) 10 mg PO DAILY [facility] Last Admin: 06/05/20 09:03 Dose: 10 mg Documented by: Methylprednisolone (Solu-Medrol) 40 mg IV Q8 [facility] Last Admin: 06/05/20 05:48 Dose: 40 mg Documented by: Nutritional Formula (Lactose Free) (Ensure Enlive) 120 ml PO TID [facility] Last Admin: 06/05/20 05:54 Dose: Not Given Documented by: Ondansetron HCl (Zofran) 4 mg IV Q8H PRN PRN PRN Reason: NAUSEA/VOMITING Sodium Chloride () 10 - 40 ml IV UD PRN PRN Reason: SALINE FLUSH Last Admin: 06/05/20 08:27 Dose: 10 ml Documented by: Medical Necessity - Tobacco Use Smoking Status: Former smoker Assessment/Plan All Active Problems Acute respiratory failure with hypoxia (Acute) Petechial rash (Acute) SIRS (systemic inflammatory response syndrome) (Acute) RECOMMENDATIONS: 1. Continue gentle diuresis 2. Increase Coreg 3. Continue blood pressure medications 4. Continue steroids at previous dosing 5. Check nocturnal oximetry 6. Consider BiPAP with sleep IMPRESSIONS: 1. Acute hypoxic respiratory failure secondary to probable flash pulmonary edema secondary to hypertensive emergency Patient does carry a diagnosis of COPD and has emphysematous changes on CT of the chest. However, acute onset with sleep would be unlikely for a COPD exacerbation. Patient did present with high systolic and diastolic blood pressures and was recently placed on high steroid therapy secondary to her vasculitis. Echocardiogram does show elevated pulmonary artery pressures. Clinical suspicion for flash pulmonary edema and responded well to Lasix and blood pressure control. Patient continues to have increased blood pressure overnight, likely secondary to uncontrolled obstructive sleep apnea. Agree with obtaining a nocturnal oximetry as this could be used as a bridge until outpatient evaluation for sleep study can be completed. 2. Probable congestive heart failure Multiple risk factors for congestive heart failure including obesity, tobacco history and age. Continue aggressive blood pressure control 3. Vasculitis of unclear etiology Biopsies were obtained initially. Patient appears to be responding well to steroid therapy. We will continue this therapy for now. Biopsy results showing leukocytoclastic vasculitis. Wound care of the lower extremities given open areas. 4. COPD Patient is no longer smoking, but does have significant emphysematous changes noted on CT scan of the chest. Reasonable to continue with DuoNeb and albuterol aerosols. Steroids may help situation. Patient will have compromised pulmonary mechanics secondary to lower extremity pain. Patient should have outpatient work-up for quantification clarification of lung function and evaluation for need for supplemental oxygen. Patient is on triple therapy as an outpatient, but it is unclear if this was following pulmonary function testing for COPD/asthma overlap syndrome. Overnight oxygen may be secondary to untreated sleep apnea versus advanced COPD. Given negative lower extremity Dopplers and CTA of the chest, pulmonary embolism is unlikely. 5. SIRS secondary to #1 Likely okay to discontinue antibiotics from my perspective. Autoimmune work-up has been ordered and punch biopsy is currently being processed. UA has been ordered, but no results are available. 6. Advanced age/obesity Complicates care, management, recovery and prognosis. Unclear if patient follows regularly with her physician. Inpatient E&M: 78558 Subs Hosp L3
[2020-06-05 11:10] LABS: Bedside Glucose 117 mg/dL (70-110)
--- NOTE | 2020-06-05 11:18 | CASEMGMT ---
Social Work met with pt and . Pt confirms she does have a Living will and HCPOA naming her [place] Varela. Pt made aware that documents are not on file and requested documents be brought in. PETROS Roberts
--- NOTE | 2020-06-05 15:13 | CASEMGMT ---
Green sheet on chart for possible home oxygen. Pt states that she would like [employer] at this time. Pt is concerned about getting into see pulmonology so that she can get sleep study set up. Call to pulm office to schedule appt for pt at this time. Pt scheduled to see Nicolasa Hilario UI LEAD DEVELOPER at [facility] for 06/11/20 at 1345. Pt/ updated at this time and provided with print out of same. Pt/ voice no further questions/concerns/needs at this time. Eh MARTÍNEZ CM
[2020-06-05 16:41] LABS: Bedside Glucose 124 mg/dL (70-110)
[2020-06-05 22:41] LABS: Bedside Glucose 109 mg/dL (70-110)
[2020-06-06] VITALS (9 sets, daily range): BP systolic 109–152; BP diastolic 55–93; PULSE 64–84; RESP 18–20; TEMP 36.4–37; O2SAT 87–95
[2020-06-06] MEDS: 0.9% Saline Lock 10 ML Syringe IV (05:09)
[2020-06-06 06:46] LABS: Bedside Glucose 126 mg/dL (70-110)
[2020-06-06 06:57] LABS: Anion Gap 4 (5-15); BUN 29 mg/dL (7-18); BUN/Creat Ratio 30.5 RATIO (10-20); Calcium,Total 8.2 mg/dL (8.5-10.1); Chloride 102 mmol/L (98-107); Creatinine, Serum 0.95 mg/dL (0.55-1.02); EST Glomerular Filtration Rate 63 mL/min (>60); Est Glom Filt Rate - Afr Amer 76 mL/min (>60); Estimated Creatinine Clearance 52.42 ml/min; Glucose 116 mg/dL (74-106); Sodium Level 138 mmol/L (136-145)
--- NOTE | 2020-06-06 09:04 | PCM.PN.PUL ---
Patient Problems: Active and Suspected Problems Acute respiratory failure with hypoxia (Acute) Petechial rash (Acute) Subjective: Patient did well overnight. No acute issues were reported. Patient states I slept like a baby. Patient did report dyspnea on exertion, but lower extremity pain is pretty much gone. No nausea or vomiting noted. - Physical Exam Vitals/I&O's: Vital Signs Temp Pulse Resp BP Pulse Ox 36.6 C 75 18 148/80 H 91 06/06/20 04:15 06/06/20 07:45 06/06/20 04:15 06/06/20 04:15 06/06/20 07:00 Oxygen Flow Rate (L/min) 0 Oxygen Delivery Method Room Air Weight: 94.6 kg Body Mass Index (BMI) 36.7 Intake and Output for Last 24 Hours 06/04/20 06/05/20 06/06/20 23:59 23:59 23:59 Intake Total 1690 / 1690 800 / 1020 370 / 370 Output Total 4150 / 4150 1450 / 1775 725 / 725 Balance -2460 / -2460 -650 / -755 -355 / -355 General: Alert, Oriented x3, Cooperative, - - Mild conversational dyspnea. Obese. HEENT: Atraumatic, PERRLA, EOMI, Normocephalic, - - No scleral icterus or injection noted Oral: Moist Mucosa, No Gingival or Mucosal Lesions/ Ulcerations Neck: Supple, No JVD, No Nodes, Trachea Midline Lungs: No rhonchi, No rales, Diminished, Wheezes - End expiratory, - - Symmetric expansion. No dullness to percussion. Cardiovascular: Regular rate, Regular Rhythm, Normal S1, Normal S2, No murmurs, No rub noted, No Gallop Abdomen: Bowel Sounds Present, Soft, Non Tender, Non-Distended, Obese Extremities: No clubbing, No cyanosis, No edema, Capillary Refill Less than 3 Seconds Skin: - - Rash continues to improve. Musculoskeletal: No Tenderness to Palpation of Joints or Extremities Lymphatic: No Cervical, Supraclavicular, or Inguinal Adenopathy Neurological: Cranial nerves II-XII grossly intact, Neuro grossly intact, Motor Exam 5/5 strength throughout Psych/Mental Status: Alert and oriented to time, place, person, mood and affect Laboratory Results 06/05/20 11:03: POC Glucose 117 H 06/05/20 16:04: POC Glucose 124 H 06/05/20 22:16: POC Glucose 109 06/06/20 05:07: POC Glucose 126 H 06/06/20 06:07: Sodium 138, Potassium 4.0, Chloride 102, Carbon Dioxide 32.0, Anion Gap 4 L, BUN 29 H, Creatinine 0.95, Estim Creat Clear Calc 52.42, Est GFR (MDRD) Af Amer 76, Est GFR (MDRD) Non-Af 63, BUN/Creatinine Ratio 30.5 H, Glucose 116 H, Calcium 8.2 L Current Medications Acetaminophen (Tylenol) 650 mg PO Q6H PRN PRN PRN Reason: Pain Score 1-10/Temp > 100.7 F Albuterol/Ipratropium (Duoneb) 3 ml INHALATION Q4HWA.RT PRN PRN Reason: SOB/WHEEZING Last Admin: 06/05/20 02:25 Dose: 3 ml Documented by: Carvedilol (Coreg) 12.5 mg PO BID [facility] Last Admin: 06/05/20 22:17 Dose: 12.5 mg Documented by: Dextrose (D50w Syringe) 0 gm IV X1 PRN; Protocol PRN Reason: Hypoglycemia Enoxaparin Sodium (Lovenox) 40 mg SC DAILY [facility] Last Admin: 06/05/20 09:03 Dose: 40 mg Documented by: Furosemide (Lasix) 40 mg PO DAILY [facility] Glucagon () 1 mg IM .X1 PRN PRN Reason: Hypoglycemia Hydralazine HCl (Apresoline Iv) 10 mg IV Q4H PRN PRN PRN Reason: BLOOD PRESSURE Last Admin: 06/05/20 02:03 Dose: 10 mg Documented by: Sodium Chloride () 250 mls @ 15 mls/hr IV .[id number] PRN PRN Reason: Saline Flush Sodium Chloride () 250 mls @ 15 mls/hr IV .[id number] PRN PRN Reason: Additional IVPB Infusion Insulin Human Lispro (Humalog Kwikpen (Bkc)) 0 unit SC Q6 [facility]; Protocol Last Admin: 06/06/20 05:09 Dose: Not Given Documented by: Lisinopril (Zestril) 20 mg PO DAILY [facility] Methylprednisolone (Solu-Medrol) 40 mg IV Q8 [facility] Last Admin: 06/06/20 05:09 Dose: 40 mg Documented by: Ondansetron HCl (Zofran) 4 mg IV Q8H PRN PRN PRN Reason: NAUSEA/VOMITING Sodium Chloride () 10 - 40 ml IV UD PRN PRN Reason: SALINE FLUSH Last Admin: 06/06/20 05:09 Dose: 10 ml Documented by: Medical Necessity - Tobacco Use Smoking Status: Former smoker Assessment/Plan All Active Problems Acute respiratory failure with hypoxia (Acute) Petechial rash (Acute) SIRS (systemic inflammatory response syndrome) (Acute) RECOMMENDATIONS: 1. Continue gentle diuresis 2. Continue Coreg, increase lisinopril 3. Walking oximetry prior to discharge 4. Continue steroids at previous dosing 5. Supplemental oxygen with sleep if indicated 6. Outpatient evaluation for sleep disordered breathing IMPRESSIONS: 1. Acute hypoxic respiratory failure secondary to probable flash pulmonary edema secondary to hypertensive emergency Patient does carry a diagnosis of COPD and has emphysematous changes on CT of the chest. However, acute onset with sleep would be unlikely for a COPD exacerbation. Patient did present with high systolic and diastolic blood pressures and was recently placed on high steroid therapy secondary to her vasculitis. Echocardiogram does show elevated pulmonary artery pressures. Clinical suspicion for flash pulmonary edema and responded well to Lasix and blood pressure control. Patient continues to have increased blood pressure overnight, likely secondary to uncontrolled obstructive sleep apnea. Await overnight oximetry. Supplemental oxygen if indicated. Agree with aggressive blood pressure management. Patient can follow-up in our office in 2 weeks with nurse practitioner for evaluation of respiratory and sleep status. Patient can be discharged on supplemental oxygen with exertion if necessary. 2. Probable congestive heart failure Multiple risk factors for congestive heart failure including obesity, tobacco history and age. Continue aggressive blood pressure control 3. 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 Patient appears to be responding well to steroid therapy. We will continue this therapy for now. Biopsy results showing leukocytoclastic vasculitis. Wound care of the lower extremities given open areas. 4. COPD Patient is no longer smoking, but does have significant emphysematous changes noted on CT scan of the chest. Reasonable to continue with DuoNeb and albuterol aerosols. Steroids may help situation. Patient will have compromised pulmonary mechanics secondary to lower extremity pain. Patient should have outpatient work-up for quantification clarification of lung function and evaluation for need for supplemental oxygen. Patient is on triple therapy as an outpatient, but it is unclear if this was following pulmonary function testing for COPD/asthma overlap syndrome. Overnight oxygen may be secondary to untreated sleep apnea versus advanced COPD. Given negative lower extremity Dopplers and CTA of the chest, pulmonary embolism is unlikely. 5. SIRS secondary to #1 Likely okay to discontinue antibiotics from my perspective. 6. Advanced age/obesity Complicates care, management, recovery and prognosis. Unclear if patient follows regularly with her physician. Inpatient E&M: 61169 Subs Hosp L2
[2020-06-06] MEDS: Lisinopril 20 MG Tablet PO (10:13)
[2020-06-06] MEDS: Furosemide 40 MG Tablet PO (10:13)
[2020-06-06] MEDS: Enoxaparin 40 MG/0.4 ML Syringe SC (10:13)
[2020-06-06] MEDS: Carvedilol 12.5 MG Tablet PO (10:14)
[2020-06-06 12:11] LABS: Bedside Glucose 109 mg/dL (70-110)
--- NOTE | 2020-06-06 12:19 | DCINST_ITS ---
- Discharge Diagnoses Current Active Problems: Current Active and Chronic Problems Acute respiratory failure with hypoxia (Acute) COPD with exacerbation (Chronic) Petechial rash (Acute) You will use the following diet at home:: Regular Your food should be the consistency of: Regular Your liquids should be the consistency of: Regular/Thin Discharge Activity: Return to Normal Activity Call your doctor if you observe: Fever of 101 or Higher, Shortness of breath, Dizziness, Fainting spells, Swelling in the ankles, Chest pain, Increased palpitations (irregular heartbeat) Allergies/Adverse Reactions: Allergies No Known Allergies Allergy (Verified 05/31/20 13:55) Medications to take at Discharge Ascorbic Acid [Vitamin C] 1,000 mg PO DAILY 05/31/20 Calcium Carbonate/Vitamin D3 [Calcium 600 + Vit D Tablet] 1 ea PO DAILY 05/31/20 Cholecalciferol (Vitamin D3) [Vitamin D3] 2,000 unit PO DAILY 05/31/20 Fluticasone/Umeclidin/Vilanter [Trelegy Ellipta 100-62.5-25] 1 ea IH Q6H PRN PRN 05/31/20 Garlic 1 ea PO DAILY 05/31/20 [place]-3 Fatty Acids/Fish Oil [Fish Oil 1,000 mg Capsule] 1 ea PO DAILY 05/31/20 Vitamin B Complex [B Complex] 1 ea PO DAILY 05/31/20 Oxycodone [Oxyir] 5 mg PO Q6H PRN PRN 5 Days #10 tab 06/02/20 predniSONE tablet 60 mg PO DAILY@0800 #28 tab 06/02/20 Carvedilol [Coreg (Beta Vishnu)] 12.5 mg PO BID #60 tab 06/06/20 Furosemide [Lasix] 40 mg PO DAILY #30 tab 06/06/20 Lisinopril [Zestril] 20 mg PO DAILY #30 tab 06/06/20 The following prescriptions were given: Carvedilol [Coreg (Beta Vishnu)] 12.5 mg PO BID #60 tab Transmission Status: Pending to [id number] Furosemide [Lasix] 40 mg PO DAILY #30 tab Transmission Status: Pending to [id number] Lisinopril [Zestril] 20 mg PO DAILY #30 tab Transmission Status: Pending to [id number] Primary Care Physician: Alyce Luis MD [Primary Care Provider] - Please follow up with your Primary Care Physician in: 3-5 days Test Results: Test results from this visit will be discussed in further detail at your follow- up appointment, if applicable. Please Follow Up With: Angelito Marin MD Please Follow Up With: Sukhwinder Caldera MD When: 1 week
--- NOTE | 2020-06-06 12:22 | DS.PCM_ITS ---
Discharge Date and Diagnosis - Problem List Patient Problems: Active and Suspected Problems Acute respiratory failure with hypoxia (Acute) Petechial rash (Acute) Date of Admission: 06/03/20 Date of Discharge: 06/06/20 - Primary Discharge Diagnosis Acute Problems: Active Problems Acute respiratory failure with hypoxia (Acute) Petechial rash (Acute) - Secondary Discharge Diagnosis Chronic Problems: Chronic Problems COPD with exacerbation (Chronic) COPD (chronic obstructive pulmonary disease) (Chronic) History of tobacco abuse (Chronic) Hospital Course and Treatment Imaging Results: Clinical Impression(s) from Imaging Studies Chest X-Ray 06/03/20 02:51 IMPRESSION: Negative x-ray examination of the chest. No interval change. Electronically Signed: Hector Franklin, at 3:41 EDT Tel , Service support , Echo: Interpretation Summary The estimated ejection fraction is 60 %. No evidence for diastolic dysfunction. Trivial mitral valve insufficiency. Trivial tricuspid valve insufficiency. The study was technically difficult. Contrast injection was performed. Consults: Pulmonology Operations: None Procedures: 2-D Echocardiogram Summary of Care Provided: Per HPI: The patient is a 65 year old F with a significant history of shortness of breath who presented with sudden onset shortness of breath that was present when she woke up from sleep. . Associated with her symptom is wheezing Patient has a chronic nonproductive cough that has not changed. At the ED patient was given terbutaline, and magnesium IV. She was placed on BiPAP. The patient did not want to be intubated and she would accept intubation only as a last resort. ED doc o discussed the case with rfid systems engineer who recommended patient be admitted to the intensive care unit. Patient was discharged from the hospital a day before her presentation. On a previous admission she was treated for vasculitis and was discharged home on prednisone 60 mg daily. The last time she took her prednisone was on the morning of her discharge Hospital Course: 1. 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 This was felt to be secondary to flash pulmonary edema from her steroid use. Echo demonstrated an elevated pulmonary hypertension and her blood pressure was about 30 points higher than it was previously. She was started on aggressive blood pressure management as well as IV Lasix and was diuresed fairly well. She was discharged on p.o. Lasix as well as Coreg twice daily and lisinopril. She was also continued on steroids for possible COPD exacerbation. She had a nocturnal pulse ox as well as an ambulatory pulse ox which indicated that she did need oxygen at night, as well as with ambulation. 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 She will need to follow-up with her PCP in 3 to 5 days. 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 I discussed the plan of discharge with her today and she expressed understanding the risks and benefits of going home. Patient Problems: Active and Suspected Problems Acute respiratory failure with hypoxia (Acute) Petechial rash (Acute) - Physical Exam Vitals/I&O's: Vital Signs Temp Pulse Resp BP Pulse Ox 97.6 F L 81 20 H 109/55 L 93 06/06/20 10:15 06/06/20 10:15 06/06/20 10:15 06/06/20 10:15 06/06/20 11:35 Oxygen Flow Rate (L/min) [ 2 AMBULATION with Oxygen] Oxygen Flow Rate (L/min) 0 Oxygen Delivery Method Room Air Weight: 208 lb 8.917 oz Body Mass Index (BMI) 36.7 Intake and Output for Last 24 Hours 06/04/20 06/05/20 06/06/20 23:59 23:59 23:59 Intake Total 1690 / 1690 800 / 1020 370 / 370 Output Total 4150 / 4150 1450 / 1775 725 / 725 Balance -2460 / -2460 -650 / -755 -355 / -355 General: Alert, Oriented x3, Cooperative, No apparent distress HEENT: Atraumatic, PERRLA, EOMI, Normocephalic Oral: Moist Mucosa Neck: Supple, No JVD Lungs: Clear to auscultation, Normal air movement, No rhonchi, No rales, Diminished Cardiovascular: Regular rate, Regular Rhythm, Normal S1, Normal S2, No murmurs Abdomen: Soft, Non Tender, Non-Distended, No Hepato-splenomegaly Extremities: No edema, Capillary Refill Less than 3 Seconds Skin: No breakdown, - - Her palpable violaceous rash is significantly improved since her first admission Neurological: Neuro grossly intact, Sensory exam intact to light touch and pain Psych/Mental Status: Normal Affect, Appropriate Laboratory Results 06/05/20 16:04: POC Glucose 124 H 06/05/20 22:16: POC Glucose 109 06/06/20 05:07: POC Glucose 126 H 06/06/20 06:07: Sodium 138, Potassium 4.0, Chloride 102, Carbon Dioxide 32.0, Anion Gap 4 L, BUN 29 H, Creatinine 0.95, Estim Creat Clear Calc 52.42, Est GFR (MDRD) Af Amer 76, Est GFR (MDRD) Non-Af 63, BUN/Creatinine Ratio 30.5 H, Glucose 116 H, Calcium 8.2 L 06/06/20 11:38: POC Glucose 109 Current Medications Acetaminophen (Tylenol) 650 mg PO Q6H PRN PRN PRN Reason: Pain Score 1-10/Temp > 100.7 F Albuterol/Ipratropium (Duoneb) 3 ml INHALATION Q4HWA.RT PRN PRN Reason: SOB/WHEEZING Last Admin: 06/05/20 02:25 Dose: 3 ml Documented by: Carvedilol (Coreg) 12.5 mg PO BID [facility] Last Admin: 06/06/20 10:14 Dose: 12.5 mg Documented by: Dextrose (D50w Syringe) 0 gm IV X1 PRN; Protocol PRN Reason: Hypoglycemia Enoxaparin Sodium (Lovenox) 40 mg SC DAILY [facility] Last Admin: 06/06/20 10:13 Dose: 40 mg Documented by: Furosemide (Lasix) 40 mg PO DAILY [facility] Last Admin: 06/06/20 10:13 Dose: 40 mg Documented by: Glucagon () 1 mg IM .X1 PRN PRN Reason: Hypoglycemia Hydralazine HCl (Apresoline Iv) 10 mg IV Q4H PRN PRN PRN Reason: BLOOD PRESSURE Last Admin: 06/05/20 02:03 Dose: 10 mg Documented by: Sodium Chloride () 250 mls @ 15 mls/hr IV .[id number] PRN PRN Reason: Saline Flush Sodium Chloride () 250 mls @ 15 mls/hr IV .[id number] PRN PRN Reason: Additional IVPB Infusion Insulin Human Lispro (Humalog Kwikpen (Bkc)) 0 unit SC Q6 [facility]; Protocol Last Admin: 06/06/20 11:39 Dose: Not Given Documented by: Lisinopril (Zestril) 20 mg PO DAILY [facility] Last Admin: 06/06/20 10:13 Dose: 20 mg Documented by: Methylprednisolone (Solu-Medrol) 40 mg IV Q8 [facility] Last Admin: 06/06/20 05:09 Dose: 40 mg Documented by: Ondansetron HCl (Zofran) 4 mg IV Q8H PRN PRN PRN Reason: NAUSEA/VOMITING Sodium Chloride () 10 - 40 ml IV UD PRN PRN Reason: SALINE FLUSH Last Admin: 06/06/20 05:09 Dose: 10 ml Documented by: Discharge Activity: Return to Normal Activity Call your doctor if you observe: Fever of 101 or Higher, Shortness of breath, Dizziness, Fainting spells, Swelling in the ankles, Chest pain, Increased palpitations (irregular heartbeat) Home Medications: Medications to take at Discharge Ascorbic Acid [Vitamin C] 1,000 mg PO DAILY 05/31/20 Calcium Carbonate/Vitamin D3 [Calcium 600 + Vit D Tablet] 1 ea PO DAILY 05/31/20 Cholecalciferol (Vitamin D3) [Vitamin D3] 2,000 unit PO DAILY 05/31/20 Fluticasone/Umeclidin/Vilanter [Trelegy Ellipta 100-62.5-25] 1 ea IH Q6H PRN PRN 05/31/20 Garlic 1 ea PO DAILY 05/31/20 [place]-3 Fatty Acids/Fish Oil [Fish Oil 1,000 mg Capsule] 1 ea PO DAILY 05/31/20 Vitamin B Complex [B Complex] 1 ea PO DAILY 05/31/20 Oxycodone [Oxyir] 5 mg PO Q6H PRN PRN 5 Days #10 tab 06/02/20 predniSONE tablet 60 mg PO DAILY@0800 #28 tab 06/02/20 Carvedilol [Coreg (Beta Vishnu)] 12.5 mg PO BID #60 tab 06/06/20 Furosemide [Lasix] 40 mg PO DAILY #30 tab 06/06/20 Lisinopril [Zestril] 20 mg PO DAILY #30 tab 06/06/20 Following Prescriptions Were Given to Patient: Carvedilol [Coreg (Beta Vishnu)] 12.5 mg PO BID #60 tab Transmission Status: Pending to [id number] Furosemide [Lasix] 40 mg PO DAILY #30 tab Transmission Status: Pending to [id number] Lisinopril [Zestril] 20 mg PO DAILY #30 tab Transmission Status: Pending to [id number] Primary Care Physician: Alyce Luis MD [Primary Care Provider] - Please follow up with your Primary Care Physician in: 3-5 days Please Follow Up With: Angelito Marin MD Please Follow Up With: Sukhwinder Caldera MD When: 1 week Disposition: Home Minutes spent on discharge:: 35 Patient Condition:: Stable Medical Necessity - Tobacco Use Smoking Status: Former smoker Meaningful Use Info Meaningful Use Diagnoses (Choose all that apply): None applicable Inpatient E&M: 28229 Disch Hosp
--- NOTE | 2020-06-08 15:53 | CASEMGMT ---
FABIEN answered the phone on PCU and it was [facility] in [place]. They delivered O2 to patient, but never received any paperwork. Fax number is [phone]. FABIEN faxed d/c summary, instructions, and O2 testing. Estrella TORREZ MSW
== END 2020-06-06 16:35 | disposition home or self-care (01) | DRG 189 ==
LOC: ED 05:05 → ICU 05:10 → PCU 16:03
PROVIDERS: Admitting Provider Hospitalist; Emergency Provider Emergency Medicine; PCP Internal Medicine; Visit Provider Family Medicine
DX: J81.0 Acute pulmonary edema (principal); J96.01 Acute respiratory failure with hypoxia; J44.1 Chronic obstructive pulmonary disease with (acute) exacerbation; I16.1 Hypertensive emergency; R65.10 Systemic inflammatory response syndrome (SIRS) of non-infectious origin without acute organ dysfunction; R23.3 Spontaneous ecchymoses; I27.20 Pulmonary hypertension, unspecified; T38.0X5A Adverse effect of glucocorticoids and synthetic analogues, initial encounter; I77.6 Arteritis, unspecified; E66.9 Obesity, unspecified; Z87.891 Personal history of nicotine dependence; Z68.36 Body mass index [BMI] 36.0-36.9, adult
CPT/HCPCS: 36415; 36600; 71045; 80048; 82803; 82962; 83880; 84484; 85025; 93005; 93306; 94002; 94003; 94640; 94762; 97116; 97162; 97166; 97530; 97802; 99285; Q9957; A4216; C8929; J1940

== ENCOUNTER → 2020-06-22 | Outpatient (CLI) | payer MEDICARE, SELFPAY ==
[2020-06-11 13:25] VITALS: BMI 32.8
== END | disposition home or self-care (01) ==
PROVIDERS: PCP Internal Medicine; Referring Provider Nurse Practitioner Acute Care; Visit Provider Nurse Practitioner Acute Care
DX: G47.33 Obstructive sleep apnea (adult) (pediatric) (principal); J44.9 Chronic obstructive pulmonary disease, unspecified
CPT/HCPCS: 95810

== ENCOUNTER → 2020-09-03 10:24 | Outpatient (CLI) | payer MEDICARE, SELFPAY ==
[2020-07-08 08:13] VITALS: BMI 31.6
--- NOTE | 2020-09-04 11:24 | PFT ---
INTRODUCTION: The patient is a 65-year-old female that presents for pulmonary function studies secondary to a diagnosis of COPD. Respiratory therapy reports good patient effort. Bronchodilators were used during testing. INTERPRETATION: Forced expiration spirometry demonstrates the presence of a severe large airways obstructive ventilatory defect. There was no significant response to aerosolized bronchodilators, based upon strict ATS criteria. Spirograms are of good quality and do not plateau indicating slow emptying of the lungs. Body plethysmography was performed and revealed a decreased TLC to 3.58 L, 74% of predicted, indicative of a mild restrictive ventilatory impairment. Diffusing capacity by single breath CO is reduced at 55% of predicted. IMPRESSION: Irreversible severe mixed ventilatory defect with symmetric reduction in diffusing capacity.
== END ==
PROVIDERS: PCP Internal Medicine; Referring Provider Nurse Practitioner Acute Care; Visit Provider Nurse Practitioner Acute Care
DX: J44.9 Chronic obstructive pulmonary disease, unspecified (principal)
CPT/HCPCS: 94060; 94726; 94729

== ENCOUNTER → 2020-09-04 12:11 | Outpatient (CLI) | payer MEDICARE, SELFPAY ==
[2020-07-08 08:13] VITALS: BMI 31.6
[2020-09-04 12:51] VITALS: PULSE 78; PULSE 83; PULSE 84; PULSE 87; PULSE 88; PULSE 89; PULSE 91; PULSE 92; O2SAT 90; O2SAT 91; O2SAT 93; O2SAT 94
--- NOTE | 2020-09-05 09:49 | PCM.PSN.6M ---
PSN 6 Minute Walk Test - 6 Minute Walk Test 6 Minute Walk Test: 6 Minute Walk Test PSN:6-Minute Walk Test Start: 09/04/20 12:51 Freq: Status: Active Protocol: RESP.6MINW Document 09/04/20 12:51 [facility] (Rec: 09/04/20 12:54 [facility] [id number]) 6 Minute Walk Test Date Performed 09/04/20 Time Performed 12:30 Height 5 ft 4 in Weight: 186 lb Weight in Pounds 186.[address]: Nicolasa Carver INVESTMENT TRADER Assistive device used: None Pre-test Oxygen Delivery Method Room Air Pulse Ox (%) 93 Pulse Rate (60-100 beats/min) 83 Dyspnea Cassia Scale (0-10) 2 1st minute Oxygen Delivery Method Room Air Pulse Ox (%) 93 Pulse Rate (60-100 beats/min) 84 Dyspnea Cassia Scale (0-10) 2 Number of Rests Taken 0 2nd minute Oxygen Delivery Method Room Air Pulse Ox (%) 91 Pulse Rate (60-100 beats/min) 87 Dyspnea Cassia Scale (0-10) 3 Number of Rests Taken 0 3rd minute Oxygen Delivery Method Room Air Pulse Ox (%) 91 Pulse Rate (60-100 beats/min) 88 Dyspnea Cassia Scale (0-10) 3 Number of Rests Taken 0 4th minute Oxygen Delivery Method Room Air Pulse Ox (%) 91 Pulse Rate (60-100 beats/min) 92 Dyspnea Cassia Scale (0-10) 3 Number of Rests Taken 0 5th minute Oxygen Delivery Method Room Air Pulse Ox (%) 91 Pulse Rate (60-100 beats/min) 91 Dyspnea Cassia Scale (0-10) 3 Number of Rests Taken 0 6th minute Oxygen Delivery Method Room Air Pulse Ox (%) 90 Pulse Rate (60-100 beats/min) 89 Dyspnea Cassia Scale (0-10) 3 Number of Rests Taken 0 Post-test Oxygen Delivery Method Room Air Pulse Ox (%) 94 Pulse Rate (60-100 beats/min) 78 Dyspnea Cassia Scale (0-10) 2 Full Laps Walked 17 Partial Lap, Number of Tiles Walked 24 Total Distance Walked (ft) 1027 - Interpretation Interpretation: The patient ambulated 1027 feet over the course of 6 minutes beginning on room air without assistive devices or breaks. Pretesting oxygen saturation was noted to be 93% on room air. With ambulation, the ambrosio oxygen saturation was 90%. There was no significant exertional oxygen desaturation. - Recommendations Recommendations: There is no indication for the use of supplemental oxygen at this time.
== END ==
PROVIDERS: PCP Internal Medicine; Referring Provider Nurse Practitioner Acute Care; Visit Provider Nurse Practitioner Acute Care
DX: J44.9 Chronic obstructive pulmonary disease, unspecified (principal)
CPT/HCPCS: 94618

== ENCOUNTER → 2022-02-28 | Outpatient (CLI) | payer MEDICARE, SELFPAY ==
--- NOTE | 2022-02-28 14:38 | CT_ITS ---
STUDY: CT CHEST WITHOUT CONTRAST- LOW DOSE SCREENING PROTOCOL REASON FOR EXAM: Female, 66 years old. Former smoker. Quit smoking less than 5 years ago. 40 pack per year history. No current symptoms of lung cancer or pulmonary infection. Shared decision-making with referring PCP documented in patient''s record. RADIATION DOSAGE (If Supplied By Facility): CTDIvol = ( 2.39 ) mGy, DLP = ( 78.32 ) mGycm TECHNIQUE: Low dose screening CT examination performed from the base of the neck to the upper abdomen. Sagittal and coronal reformatted images performed. Sagittal and coronal MIP images provided. The measurements provided are average, rounded measurements per ACR guidelines. COMPARISON: 05/31/2020 FINDINGS: Mild emphysema. No noncalcified nodule or mass. There is no demonstrated pleural abnormality. Normal heart and pericardium. There are calcifications of the coronary arteries. Normal mediastinum. Normal hilar regions. Normal unenhanced pulmonary arteries. There is atherosclerotic calcification of the aortic arch with tortuosity and elongation of the aortic arch and descending thoracic aorta. Normal osseous structures. There is no demonstrated abnormality of the visualized upper abdomen. CT/Low Dose CT Lung Screening IMPRESSION: 1. No significant indeterminate incidental findings requiring additional imaging. 2. Incidental findings include mild emphysema. ASSESSMENT CATEGORY: LungRADS 1 - Negative. Continue annual screening with LDCT in 12 months, per established ACR guidelines. Electronically Signed: Enrique Garza MD at 17:06 EDT ,
== END | disposition home or self-care (01) ==
LOC: CT 14:36
PROVIDERS: PCP Internal Medicine; Visit Provider Nurse Practitioner Acute Care
DX: Z87.891 Personal history of nicotine dependence (principal)
CPT/HCPCS: 71271

== ENCOUNTER 2022-09-22 18:47 | Emergency (ER) | payer MEDICARE, SELFPAY ==
[2022-09-22 18:47] VITALS: BP 134/106; PULSE 95; RESP 22; TEMP 37.7; O2SAT 95
[2022-09-22 18:48] VITALS: BP 149/105; PULSE 93; RESP 16; TEMP 37.7; O2SAT 92; BMI 30.6
[2022-09-22 19:00] VITALS: O2SAT 94
--- NOTE | 2022-09-22 19:02 | EKG12_ITS ---
Test Reason : SOB Blood Pressure : / mmHG Vent. Rate : 090 BPM Atrial Rate : 090 BPM P-R Int : 112 ms QRS Dur : 074 ms QT Int : 364 ms P-R-T Axes : -11 025 007 degrees QTc Int : 445 ms Normal sinus rhythm Nonspecific ST and T wave abnormality Abnormal ECG Confirmed by CAROLYN WRIGHT, DAMEON ([id number]), slot editor NATAN PRINCE ([id number]) on 09/26/2022 11:53:18 AM Referred By: [email or web address] Confirmed By:DAMEON LEON MD
--- NOTE | 2022-09-22 19:03 | ED.VIS.DYS ---
HPI History of Present Illness Chief Complaint: Shortness of Breath Informant: patient and family Onset/Context/Timing Onset: Days (3) Context: gradual Timing: Continuous Quality: Positive for Dyspnea on exertion and Wheezing Current Severity: Severe Maximum Severity: Severe Worsened by: Exertion and Coughing Relieved by: Oxygen and Albuterol (Partially and temporarily) Associated Symptoms cough Chest Pain: Positive for Tightness Narrative Narrative: Patient with COPD on home oxygen presenting with dyspnea that feels like a flareup of her COPD, intermittent nonpleuritic left-sided chest pains that she cannot describe further, and malaise. She denies having any known fevers or chills although she presents here with a temperature of 99.9. She states she has had multiple sick contacts at [facility] that have had respiratory symptoms like colds, but no one with a diagnosis, and the patient has not tested herself for COVID in the last 3 days. Last month in July her COPD was flared up and her renal medicine physician put her on prednisone and an antibiotic, she states it never really went away but she is significantly worse in the last several days. She did have some vaccinations against COVID but states she does not think she has had this latest booster which is the bivalent one. Was measuring pulse oximetry at home last couple days, abnormally lower than usual in the 89-92% range when not wearing her oxygen. [facility] Medical History Acute respiratory failure with hypoxia Cellulitis of both lower extremities COPD (chronic obstructive pulmonary disease) COPD with exacerbation History of intestine removal History of tobacco abuse Petechial rash SIRS (systemic inflammatory response syndrome) Home Medications ascorbic acid (vitamin C) 1,000 mg tablet 1,000 mg PO DAILY 05/31/20 [History Last Taken 09/22/22 080] calcium carbonate-vitamin D3 600 mg-125 unit tablet 1 ea PO DAILY 05/31/20 [History Last Taken 09/22/22 0800] cholecalciferol (vitamin D3) 50 mcg (2,000 unit) capsule 2,000 unit PO DAILY 05/31/20 [History Last Taken 09/22/22 0800] garlic 1 ea PO DAILY 05/31/20 [History Last Taken 09/22/22 0800] omega-3 fatty acids-fish oil 340 mg-1,000 mg capsule 1 ea PO DAILY 05/31/20 [History Last Taken 09/22/22 0800] vitamin B complex 1 ea PO DAILY 05/31/20 [History Last Taken 09/22/22 0800] carvedilol 12.5 mg tablet 12.5 mg PO BID #60 tabs 06/06/20 [Rx Last Taken 09/22/22 0800] furosemide 40 mg tablet 40 mg PO DAILY #30 tabs 06/06/20 [Rx Last Taken 09/22/22 0800] lisinopril 20 mg tablet 20 mg PO DAILY #30 tabs 06/06/20 [Rx Last Taken 09/22/22 0800] albuterol sulfate 90 mcg/actuation aerosol inhaler (ProAir HFA) 2 puff inhalation Q6H PRN shortness of breath or wheezing #18 grams 02/15/21 [Rx Last Taken 09/22/22 1200] ipratropium 0.5 mg-albuterol 3 mg (2.5 mg base)/3 mL nebulization soln 3 ml inhalation Q4H PRN PRN SOB &/OR WHEEZING #180 mL 08/17/22 [Rx Last Taken 09/22/22 0800] budesonide-formoterol HFA 160 mcg-4.5 mcg/actuation aerosol inhaler (Symbicort) 2 puff inhalation BID #1 ea 08/18/22 [Rx Last Taken 09/22/22 0800] tiotropium bromide 2.5 mcg/actuation mist for inhalation (Spiriva Respimat) 2 puff inhalation QAM #4 grams 08/18/22 [Rx Last Taken 09/22/22 0800] doxycycline monohydrate 100 mg capsule 100 mg PO BID #20 CAPSULES 09/22/22 [Rx Last Taken Unknown] prednisone 10 mg tablet 10 mg PO UD #30 tabs 09/22/22 [Rx Last Taken Unknown] Allergy/AdvReac Type Severity Reaction Status Date / Time No Known Allergies Allergy Verified 09/22/22 18:50 Family History Other AA (aortic aneurysm) COPD (chronic obstructive pulmonary disease) Heart disease Surgical History History of appendectomy Social History Smoking Status: Former smoker quit date: 02/10/17 ROS ROS ED Constitutional Constitutional ED: Reports anorexia and malaise; Denies chills or fever(s) Eyes Eyes: Denies change in vision or diplopia ENT ENT ED: Denies rhinorrhea or sore throat Cardiovascular Cardiovascular: Reports chest pain; Denies leg edema, orthopnea or palpitations Respiratory/Chest Respiratory/Chest: Reports cough, dyspnea and dyspnea on exertion; Denies orthopnea Gastrointestinal Gastrointestinal: Denies abdominal pain, diarrhea, nausea or vomiting Genitourinary Genitourinary ED: Denies dysuria or hematuria Musculoskeletal Musculoskeletal: Denies back pain or neck pain Integumentary Denies abscess or rash Neurologic Neurologic: Denies headache(s), paresthesias or weakness Psychiatric Psychiatric: Denies anxiety or suicidal thoughts EXAM Physical Exam Const Vital Signs: 09/22/22 18:48 09/22/22 18:47 09/22/22 19:00 Temperature 99.9 F H 99.9 F H Temperature Source Temporal Oral Pulse Rate 93 95 Respiratory Rate 16 22 H Respiratory Effort Short of Breath Labored Respiratory Depth Normal Respiratory Pattern Tachypnea Blood Pressure 149/105 H 134/106 H Blood Pressure Mean 119 115 Pulse Ox 92 95 Oxygen Delivery Method Nasal Cannula Nasal Cannula Nasal Cannula Oxygen Flow Rate (L/min) 2 2 09/22/22 19:32 Temperature Temperature Source Pulse Rate 94 Respiratory Rate 20 H Respiratory Effort Respiratory Depth Respiratory Pattern Normal Blood Pressure Blood Pressure Mean Pulse Ox Oxygen Delivery Method Oxygen Flow Rate (L/min) Positive well nourished and well developed General Appearance ED: well developed and NAD HEENT Reports moist mucous membranes normocephalic and atraumatic Eyes PERRL and EOMs intact bilaterally Neck full ROM, no lymphadenopathy, supple, no meningeal signs and no JVD Resp Resp Narrative: Tachypneic, diminished breath sounds throughout, with expiratory wheezes mildly at the end bilaterally; sounds tight. Trachea midline. Cardio regular rate, regular rhythm and no murmurs GI non-tender and non-distended Auscultation: normoactive bowel sounds Palpation: soft Back/Spine no CVA tenderness General Back: other FROM Extremity normal to inspection General Extremety ED: Negative for edema, pulses abnormal or tenderness General Extremity: Negative for edema or pulses abnormal Neuro oriented x3, CN's II-XII intact bilaterally and no sensory deficits noted Sensorium / Orientation: awake and alert Motor Exam: strength 5/5 throughout Psych mental status grossly normal Skin no rashes or lesions noted and no wounds MDM MDM MDM Narrative Medical decision making narrative: After a trio of albuterol treatments including 1 DuoNeb, patient is breathing much better. She was empirically given Solu-Medrol 125 IV. Her work-up is consistent with a viral illness causing a COPD exacerbation. 2 view chest x-ray on my interpretation negative for any acute pneumonia radiology in agreement. Her EKG is unremarkable as there is her troponin. She wears 2 L of oxygen at home, but she when she is well, she does not use it. She monitors her pulse oximetry at home, and will continue to do so. We will prescribe her doxycycline as well as a prednisone taper, she understands that if she does not have a bacterial etiology the antibiotic will not make her better, but it will prevent her from getting worse and getting a bacterial superinfection, will follow-up with pulmonology Lab Data Attestation: I reviewed the patient's lab results. Labs: Laboratory Results - last 24 hr 09/22/22 09/22/22 18:58 18:58 WBC 13.1 H RBC 4.38 Hgb 13.4 Hct 39.9 MCV 91.1 MCH 30.6 MCHC 33.6 RDW Std Deviation 41.7 RDW Coeff of Sarah 12.5 Plt Count 396 MPV 10.0 Immature Gran % (Auto) 0.500 Neut % (Auto) 74.3 H Lymph % (Auto) 9.4 L [place] % (Auto) 15.5 H Eos % (Auto) 0.1 Baso % (Auto) 0.2 Absolute Neuts (auto) 9.7 H Absolute Lymphs (auto) 1.23 Nucleated RBC % 0 Differential Comment SCANNED Diff Path Review May foll Sodium 132 L Potassium 3.9 Chloride 99 Carbon Dioxide 26.0 Anion Gap 7 BUN 12 Creatinine 1.21 H Estim Creat Clear Calc 40.04 Est GFR (MDRD) Af Amer 57 L Est GFR (MDRD) Non-Af 47 L BUN/Creatinine Ratio 9.9 L Glucose 117 H Calcium 9.4 Troponin I High Sens 10 Radiography Diagnostic Testing: Clinical Impression(s) from Imaging Studies Chest X-Ray 09/22/22 19:25 IMPRESSION: There are no acute findings. Electronically Signed: Spencer Main MD at 19:42 EST , Rhythm Strip Rhythm Strip: Sinus Rhythm Rate: 90 Ectopy: None EKG Initial EKG: Attestation: I personally reviewed and interpreted this EKG as follows: Interpretation: Sinus Rhythm and No Acute Injury Pattern Discharge Plan Triage Chief Complaint: Shortness of Breath ED Provider: Vaughn Oro Dx/Rx/DC Orders Clinical Impression: Acute exacerbation of chronic obstructive pulmonary disease (COPD), Acute viral syndrome, Chest tightness Instructions: ED COPD Flare Prescriptions: New prednisone 10 mg tablet 10 mg PO UD Qty: 30 0RF Rx Instructions: Take 4 tablets daily for 3 days, then 3 daily for 3 days, then 2 daily for 3 days, then 1 a day for 3 days doxycycline monohydrate 100 mg capsule 100 mg PO BID Qty: 20 0RF No Action albuterol sulfate [ProAir HFA] 90 mcg/actuation HFA aerosol inhaler 2 puff INHALATION Q6H PRN (Reason: shortness of breath or wheezing) Qty: 18 6RF ipratropium-albuterol 0.5 mg-3 mg(2.5 mg base)/3 mL solution for nebulization 3 ml inhalation Q4H PRN PRN (Reason: SOB &/OR WHEEZING) Qty: 180 6RF Spiriva Respimat 2.5 mcg/actuation mist 2 puff inhalation QAM Qty: 4 5RF budesonide-formoterol [Symbicort] 160-4.5 mcg/actuation HFA aerosol inhaler 2 puff INHALATION BID Qty: 1 11RF Rx Instructions: administer with spacer, rinse mouth after each use ascorbic acid (vitamin C) 1,000 MG tablet 1,000 mg PO DAILY vitamin B complex 1 EACH tablet 1 ea PO DAILY garlic 1 EACH tablet 1 ea PO DAILY calcium carbonate-vitamin D3 1 EACH tablet 1 ea PO DAILY omega-3 fatty acids-fish oil 1 EACH capsule 1 ea PO DAILY cholecalciferol (vitamin D3) 2,000 UNIT capsule 2,000 unit PO DAILY furosemide 40 MG tablet 40 mg PO DAILY Qty: 30 0RF carvedilol 12.5 MG tablet 12.5 mg PO BID Qty: 60 0RF lisinopril 20 MG tablet 20 mg PO DAILY Qty: 30 0RF Primary Care Provider: Alyce Luis Referrals: Angelito Marin MD [Med Staff - Active Staff] - 1-2 Weeks Alyce Luis MD [Primary Care Provider] - Disposition Disposition: Home, Self Care
[2022-09-22] MEDS: MethylPREDNISolone 125 MG/2 ML Vial IV (19:11)
[2022-09-22 19:17] LABS: Absolute Lymphocyte Count 1.23 X10^3/uL (0.83-4.51); Absolute Neutrophil Count 9.7 X10^3/uL (2.0-7.7); Basophil# 0.03 X10^3/uL; Basophil% 0.2 % (0-1); Eosinophil# 0.01 X10^3/uL; Eosinophils% 0.1 % (0-5); Hematocrit 39.9 % (37-47); Hemoglobin 13.4 g/dL (12.0-15.0); Lymphocyte # 1.23 X10^3/ul (0.83-4.51); Lymphocyte % 9.4 % (19-41); Mean Corp Hgb Conc 33.6 g/dL (32-36); Mean Corpuscular Hgb 30.6 pg (27.0-32.0); Mean Corpuscular Volume 91.1 fL (81-99); Monocyte# 2.03 X10^3/uL; Monocyte% 15.5 % (0-10); NRBC Flagged by Analyzer 0 % (0-5); Neutrophil % 74.3 % (47-70); POSITIVE DIFFERENTIAL YES; Platelet Count 396 K/mm3 (150-450); RBC Distribution Width CV 12.5 % (11.6-14.6); RBC Distribution Width SD 41.7 fl (35.1-43.9); Red Blood Count 4.38 M/mm3 (4.2-5.4); White Blood Count 13.1 K/mm3 (4.4-11.0)
--- NOTE | 2022-09-22 19:25 | RAD_ITS ---
STUDY: XR Chest 2 Views 09/22/2022 7:28 PM REASON FOR EXAM: Female, 67 years old. CHEST PAIN cough, sob, copd COMPARISON: 06/03/2020 TECHNIQUE: XR Chest 2 Views FINDINGS: There is no demonstrated pleural abnormality. Normal heart size. Normal mediastinum. Normal yani. Prominent appearing increased interstitial lung markings. Normal visualized pulmonary arteries. There is atherosclerotic calcification of the aortic arch with tortuosity. There are diffuse degenerative changes of the visualized thoracic spine. There is degenerative osteoarthritis of the bilateral shoulders. There is no demonstrated abnormality of the visualized soft tissue structures of the upper abdomen. RAD/Chest PA and Lateral IMPRESSION: There are no acute findings. Electronically Signed: Spencer Main MD at 19:42 EST ,
[2022-09-22] MEDS: Ipratropium/Albuterol Sulfate 3 ML AMPUL.NEB INHALATION (19:30)
[2022-09-22] MEDS: Albuterol 2.5 MG/3 ML VIAL.NEB. INHALATION ×3 (19:30→19:31)
[2022-09-22 19:32] VITALS: PULSE 94; RESP 20
[2022-09-22 19:32] LABS: Differential Indicated SCAN CRITERIA MET
[2022-09-22 19:40] LABS: Anion Gap 7 (5-15); BUN 12 mg/dL (7-18); BUN/Creat Ratio 9.9 RATIO (10-20); Calcium,Total 9.4 mg/dL (8.5-10.1); Chloride 99 mmol/L (98-107); Creatinine, Serum 1.21 mg/dL (0.55-1.02); EST Glomerular Filtration Rate 47 mL/min (>60); Est Glom Filt Rate - Afr Amer 57 mL/min (>60); Estimated Creatinine Clearance 40.04 ml/min; Glucose 117 mg/dL (74-106); Potassium 3.9 mmol/L (3.5-5.1); Sodium Level 132 mmol/L (136-145); Troponin-I HS 10 pg/mL (3.0-54.0)
[2022-09-22 20:01] LABS: Differential Comment SCANNED
[2022-09-22 20:57] VITALS: BP 111/67; PULSE 86; RESP 19; TEMP 37; O2SAT 94
[2022-09-23 13:30] LABS: Pathologist Review Reviewed
== END 2022-09-22 21:08 | disposition home or self-care (01) ==
PROVIDERS: Emergency Provider Emergency Medicine; PCP Internal Medicine; Visit Provider Emergency Medicine
DX: R07.89 Other chest pain (principal); J44.1 Chronic obstructive pulmonary disease with (acute) exacerbation; B34.9 Viral infection, unspecified; Z87.891 Personal history of nicotine dependence
CPT/HCPCS: 71046; 80048; 84484; 85025; 87428; 93005; 94640; 96374; 99284; A4216

== ENCOUNTER → 2023-03-03 | Outpatient (CLI) | payer MEDICARE, SELFPAY ==
--- NOTE | 2023-03-03 12:29 | CT_ITS ---
STUDY: LOW DOSE CT LUNG CANCER SCREENING REASON FOR EXAM: Female, 67 years old. Nicotine dependence;40 pack year smoking history, quit 2017. RADIATION DOSAGE (If Supplied By Facility): CTDIvol = ( 3.02 ) mGy, DLP = ( 100.05 ) mGycm TECHNIQUE: No contrast was administered. Low dose technique was utilized (average mAS-38 and kVp 120). 1.25 mm axial source images with a slice interval of 1.25-mm were reconstructed in lung windows. 2.5 mm axial source images with a slice interval of 2.5-mm were reconstructed in lung windows. 5.0 mm axial source images with a slice interval of 5.0-mm were reconstructed in soft tissue windows. COMPARISON: CT chest, low-dose screening February 28, 2022. CTA chest May 31, 2020. FINDINGS: No pulmonary nodules. Mild centrilobular emphysema. No focal consolidation or pleural effusion. Mild subsegmental atelectasis in the lung bases. No pneumothorax. No tracheobronchial lesion. No mediastinal or hilar adenopathy. Esophagus is unremarkable. Thyroid gland is unremarkable. Upper normal heart size. Coronary artery calcification is present. No pericardial effusion. No axillary adenopathy. Stable degenerative changes of the thoracic spine. No acute osseous injury. No acute abnormality in the visualized upper abdomen. CT/Low Dose CT Lung Screening IMPRESSION: No acute thoracic findings. Emphysema. Lung RADS-2. Recommend continued annual low-dose screening chest CT. IMPORTANT NOTES FOR USE: ACR Lung-RADS Version 1.1 Assessment Categories Release Date: 2018 Category: Coded 0-4 bases on nodule(s) with highest degree of suspicion. Negative screen is defined as categories 1 and 2; a positive screen is defined as categories 3 and 4. Category 3 and 4A nodules that are unchanged on interval CT should be coded as category 2, and individuals returned to screening in 12 months. Category 4X: Category 3 or 4 nodules with additional imaging findings that increase the suspicion of lung cancer, such as spiculation, GGN that doubles in size in 1 year, enlarged lymph notes, etc. Category Modifiers: S (significant finding unrelated to lung cancer) Electronically Signed: Bk Ty MD at 19:43 EDT ,
== END | disposition home or self-care (01) ==
LOC: CT 12:28
PROVIDERS: PCP Internal Medicine; Referring Provider Nurse Practitioner Acute Care; Visit Provider Nurse Practitioner Acute Care
DX: F17.210 Nicotine dependence, cigarettes, uncomplicated (principal)
CPT/HCPCS: 71271

== ENCOUNTER → 2024-03-05 | Outpatient (CLI) | payer MEDICARE, SELFPAY ==
--- NOTE | 2024-03-05 14:35 | CT_ITS ---
EXAM: CT CHEST, LUNG CANCER SCREENING WITHOUT INTRAVENOUS CONTRAST CLINICAL INDICATION: smoker meets screening criteria for lung cancer. TECHNIQUE: Helically acquired images were obtained of the chest without intravenous contrast using low dose (LDCT) lung cancer screening protocol. This CT exam was performed using one or more of the following dose reduction techniques: automated exposure control, adjustment of the mA and/or kV according to patient size, and/or use of iterative reconstruction technique. COMPARISON: 03/03/2023 FINDINGS: LIMITATIONS: The examination is minimally limited due to motion. LUNGS AND PLEURAL SPACES: Diffuse centrilobular emphysema. Mild dependent atelectasis bilaterally. No mass. No pleural effusion or thickening. No pneumothorax. HEART: Coronary artery calcifications. Heart size is normal. No pericardial effusion. MEDIASTINUM: No significant abnormality. No mediastinal or hilar adenopathy. Esophagus is unremarkable. No hiatal hernia. THYROID: No significant abnormality. No thyroid lesions. BONES/JOINTS: Degenerative changes in the spine. No suspicious lytic or blastic abnormality. VASCULATURE: Atherosclerosis of the aorta and its branch vessels. LYMPH NODES: No significant abnormality. No enlarged lymph nodes. CT/Low Dose CT Lung Screening IMPRESSION: ACR Lung CT Screening Reporting And Data System (Lung-RADS) score: 1 - Recommend continued annual screening with a low-dose CT (LDCT) in 12 months. Electronically Signed: Joon Pablo DO at 21:59 EDT ,
== END | disposition home or self-care (01) ==
LOC: CT 14:34
PROVIDERS: PCP Internal Medicine; Referring Provider Nurse Practitioner Acute Care; Visit Provider Nurse Practitioner Acute Care
DX: F17.210 Nicotine dependence, cigarettes, uncomplicated (principal)
CPT/HCPCS: 71271

== ENCOUNTER → 2024-03-28 | Outpatient (CLI) | payer MEDICARE, SELFPAY ==
--- NOTE | 2024-03-28 12:18 | VDLE_ITS ---
Reason For Study: pain, assess for reflux RIGHT LEFT CFV is compressible, spontaneous, phasic, CFV is compressible, spontaneous, phasic, competent and demonstrates normal competent, and demonstrates normal augmentation. augmentation. FV is compressible, spontaneous, phasic, FV is compressible, spontaneous, phasic, competent and demonstrates normal competent and demonstrates normal augmentation. augmentation. POP V is compressible, spontaneous, phasic, POP V is compressible, spontaneous, phasic, competent and demonstrates normal competent and demonstrates normal augmentation. augmentation. T/P Trunk is compressible. T/P Trunk is compressible. PTV is compressible. PTV is compressible. RT PerV is compressible. LT PerV is compressible. SFJ is competent and measures .87 cm. SFJ is competent and measures .68 cm. GSV proximal thigh measures .22 x .23 cm. GSV proximal thigh measures .24 x .25 cm. GSV at knee measures .34 x .37 cm. GSV at knee measures .26 x .3 cm. GSV INCOMPETENT throughout for greater than GSV INCOMPETENT throughout for greater than 0.5 seconds. 0.5 seconds. SSV proximal calf is INCOMPETENT for greater SSV proximal calf is INCOMPETENT for greater than 0.5 seconds and measures .29 x .31 cm. than 0.5 seconds and measures .29 x .33 cm. ASV proximal calf is INCOMPETENT for greater ASV proximal calf is INCOMPETENT for greater than 0.5 seconds and measures .16 x .17 cm. than 0.5 seconds and measures .13 x .15 cm. Procedure This is a venous duplex using B-mode, color flow and spectral Doppler. Exam performed in department. The exam was diagnostic. VL/Venous Duplex US - Ciaran Extrem Interpretation Summary Deep veins of the bilateral lower extremities are patent and compressible segme ntally. There is no evidence of bilateral lower extremity deep vein thrombosis. The bilateral great saphenous veins appear patent and compressible segmentally. Positive for reflux in the right great saphenous vein throughout, small sapheno us vein, accessory saphenous vein in the calf. Positive for reflux in the left great saphenous vein throughout, small saphenou s vein, accessory saphenous vein in the calf. Ordering Physician: Lawanda Mata Referring Physician: Lawanda Mata Performed By: Arcadio Bernstein RVT
== END | disposition home or self-care (01) ==
LOC: CVS 12:18
PROVIDERS: PCP Internal Medicine; Referring Provider Physician Assistant; Visit Provider Physician Assistant
DX: I83.812 Varicose veins of left lower extremity with pain (principal)
CPT/HCPCS: 93970

== ENCOUNTER → 2024-06-06 | Outpatient (CLI) | payer MEDICARE, SELFPAY | END | disposition home or self-care (01) | PROVIDERS: PCP Internal Medicine; Referring Provider Nurse Practitioner Acute Care; Visit Provider Nurse Practitioner Acute Care | DX: J43.2 Centrilobular emphysema (principal) | CPT/HCPCS: 94060; 94726; 94729 ==

== ENCOUNTER → 2024-06-11 | Outpatient (CLI) | payer MEDICARE, SELFPAY ==
[2024-06-11 12:25] VITALS: PULSE 69; PULSE 71; PULSE 73; PULSE 78; PULSE 80; PULSE 83; PULSE 88; PULSE 90; O2SAT 91; O2SAT 92; O2SAT 93; O2SAT 95; O2SAT 96
--- NOTE | 2024-06-14 07:58 | PCM.PSN.6M ---
PSN 6 Minute Walk Test 6 Minute Walk Test 6 Minute Walk Test: 6 Minute Walk Test PSN:6-Minute Walk Test Start: 06/11/24 12:24 Freq: Status: Active Protocol: [id number] Document 06/11/24 12:25 [facility] (Rec: 06/11/24 12:27 [facility] [id number]) 6 Minute Walk Test Date Performed 06/11/24 Time Performed 12:15 Height 5 ft 7 in Weight: 175 lb Weight in Pounds 175.[address]: Nicolasa Carver [employer] Assistive device used: None Pre-test Oxygen Delivery Method Room Air Pulse Ox (%) 96 Pulse Rate (60-100 beats/min) 69 Dyspnea Cassia Scale (0-10) 0 1st minute Oxygen Delivery Method Room Air Pulse Ox (%) 95 Pulse Rate (60-100 beats/min) 73 Dyspnea Cassia Scale (0-10) 0 Number of Rests Taken 0 2nd minute Oxygen Delivery Method Room Air Pulse Ox (%) 92 Pulse Rate (60-100 beats/min) 78 Dyspnea Cassia Scale (0-10) 0 Number of Rests Taken 0 3rd minute Oxygen Delivery Method Room Air Pulse Ox (%) 93 Pulse Rate (60-100 beats/min) 80 Dyspnea Cassia Scale (0-10) 1 Number of Rests Taken 0 4th minute Oxygen Delivery Method Room Air Pulse Ox (%) 91 Pulse Rate (60-100 beats/min) 83 Dyspnea Cassia Scale (0-10) 2 Number of Rests Taken 0 5th minute Oxygen Delivery Method Room Air Pulse Ox (%) 91 Pulse Rate (60-100 beats/min) 88 Dyspnea Cassia Scale (0-10) 2 Number of Rests Taken 0 6th minute Oxygen Delivery Method Room Air Pulse Ox (%) 92 Pulse Rate (60-100 beats/min) 90 Dyspnea Cassia Scale (0-10) 2 Number of Rests Taken 0 Post-test Oxygen Delivery Method Room Air Pulse Ox (%) 95 Pulse Rate (60-100 beats/min) 71 Dyspnea Cassia Scale (0-10) 0 Full Laps Walked 16 Partial Lap, Number of Tiles Walked 24 Total Distance Walked (ft) 968 Interpretation Interpretation: The patient ambulated 968 feet over the course of 6 minutes beginning on room air without assistive devices. Pretesting oxygen saturation was noted to be 96% on room air. With ambulation, the ambrosio oxygen saturation was 91%. This represents a significant exertional oxygen desaturation, consistent with a pulmonary limitation to exercise tolerance. Recommendations Recommendations: There is no indication for the use of supplemental oxygen at this time. However, close interval follow-up was recommended, given the degree of oxygen desaturation noted during the study.
== END | disposition home or self-care (01) ==
LOC: PSN 11:58
PROVIDERS: PCP Internal Medicine; Referring Provider Nurse Practitioner Acute Care; Visit Provider Nurse Practitioner Acute Care
DX: J43.2 Centrilobular emphysema (principal)
CPT/HCPCS: 94618

== ENCOUNTER → 2025-03-06 | Outpatient (CLI) | payer MEDICARE, SELFPAY ==
--- NOTE | 2025-03-06 12:10 | CT_ITS ---
PROCEDURE: LOW DOSE CT LUNG SCREENING 03/06/2025 REASON FOR EXAM: SMOKER TECHNIQUE: Low Dose CT Lung screening without contrast. Coronal and Sagittal reconstruction series were provided. One or more dose reduction techniques were used (e.g., Automated exposure control, adjustment of the mA and/or kV according to patient size, use of iterative reconstruction technique). REFERENCE LINK: [employer] PTY Lung-RADS RADIATION DOSE SUMMARY: CTDlvol: 2.39 mGy DLP: 73.55 mGycm COMPARISON: 03/05/2024 FINDINGS: PULMONARY NODULES: (Only nodules >3mm are reported) Pulmonary Nodules: None greater than 3 mm Motion artifact at the bases. The central airways appear patent. Mild centrilobular pulmonary emphysema. Bibasilar platelike areas of opacity may represent atelectasis or scarring. 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 Atherosclerotic changes at the aortic arch again seen. Thoracic aorta appears within limits. Three-vessel coronary calcifications noted. No pericardial or pleural effusion. No adenopathy identified. Degenerative changes in the spine again seen. CT/Low Dose CT Lung Screening IMPRESSION: Mild centrilobular pulmonary emphysema. Bibasilar platelike areas of opacity may represent atelectasis or scarring. Lung-RADS Category: 1, continue annual 12 month screening Other Significant Findings: Three-vessel coronary calcifications noted. . Reading Location: [id number]
== END | disposition home or self-care (01) ==
LOC: CT 12:10
PROVIDERS: PCP Internal Medicine; Referring Provider Nurse Practitioner Acute Care; Visit Provider Nurse Practitioner Acute Care
DX: F17.210 Nicotine dependence, cigarettes, uncomplicated (principal)
CPT/HCPCS: 71271

== ENCOUNTER → 2025-06-04 | Outpatient (CLI) | payer MEDICARE, SELFPAY ==
[2025-06-04 16:38] LABS: Hematocrit 38.8 % (37-47); Hemoglobin 12.5 g/dL (12.0-15.0); Immature Granulocytes Count 0.000 X10^3/uL (0.0-0.0); Mean Corp Hgb Conc 32.2 g/dL (32-36); Mean Corpuscular Volume 92.2 fL (81-99); Mean Platelet Vol. 10.7 fl (6.2-12.0); NRBC Flagged by Analyzer 0 % (0-5); Platelet Count 292 K/mm3 (150-450); RBC Distribution Width CV 12.1 % (11.6-14.6); RBC Distribution Width SD 41.0 fl (35.1-43.9); Red Blood Count 4.21 M/mm3 (4.2-5.4); White Blood Count 7.5 K/mm3 (4.4-11.0)
[2025-06-04 17:44] LABS: FOLATES,SERUM (FOLIC ACID) 8.48 ng/mL (4.60-34.80)
[2025-06-04 17:45] LABS: AST(SGOT) 17 U/L (<=31); Alanine Aminotransfer ALT/SGPT 8 U/L (<=34); Albumin, Serum 3.9 g/dL (3.4-4.8); Alkaline Phosphatase 84 U/L (35-104); Anion Gap 10 (5-15); BUN 4 mg/dL (4-19); BUN/Creat Ratio 4.1 RATIO (10-20); Calcium,Total 9.3 mg/dL (7.6-11.0); Carbon Dioxide 28.7 mmol/L (21.0-32.0); Chloride 100 mmol/L (98-108); Cholesterol 200 mg/dL (<=200); Globulin 2.6 g/dL (2.2-4.2); Glucose 106 mg/dL (70-99); Low Density Lipoprotein Calc. 127 mg/dL; Potassium 4.1 mmol/L (3.3-5.1); Triglycerides 104 mg/dL; Very Low Density Lipoprotein 21 mg/dL (5-40); Vitamin B12 384 pg/mL (180-914); Vitamin D,25 Hydroxy 41.7 ng/mL (30-100); cholesterol:hdl ratio screen 3.85
[2025-06-04 17:47] LABS: Hepatitis C Antibody Nonreactive (Nonreactive); Syphilis Antibodies Nonreactive (Nonreactive)
[2025-06-04 23:58] LABS: Xtra Tube Kwok EXTRA TUBE
== END | disposition home or self-care (01) ==
LOC: POLAB3 15:40
PROVIDERS: PCP Family Medicine Geriatric Medicine; Visit Provider Family Medicine Geriatric Medicine
DX: Z13.89 Encounter for screening for other disorder (principal); G31.83 Neurocognitive disorder with Lewy bodies; E78.5 Hyperlipidemia, unspecified; I10 Essential (primary) hypertension; E55.9 Vitamin D deficiency, unspecified
CPT/HCPCS: 36415; 80053; 80061; 82306; 82607; 82746; 84443; 85025; 86780; 86803

== ENCOUNTER → 2025-09-12 | Outpatient (CLI) | payer MEDICARE, SELFPAY ==
[2025-09-12 10:37] LABS: Hematocrit 41.9 % (37-47); Hemoglobin 13.5 g/dL (12.0-15.0); Immature Granulocytes Count 0.030 X10^3/uL (0.0-0.0); Mean Corp Hgb Conc 32.2 g/dL (32-36); Mean Corpuscular Volume 92.1 fL (81-99); Mean Platelet Vol. 11.0 fl (6.2-12.0); NRBC Flagged by Analyzer 0 % (0-5); Platelet Count 274 K/mm3 (150-450); RBC Distribution Width CV 12.3 % (11.6-14.6); RBC Distribution Width SD 41.4 fl (35.1-43.9); Red Blood Count 4.55 M/mm3 (4.2-5.4); White Blood Count 7.0 K/mm3 (4.4-11.0)
[2025-09-12 11:41] LABS: AST(SGOT) 21 U/L (<=31); Alanine Aminotransfer ALT/SGPT 8 U/L (<=34); Albumin, Serum 3.9 g/dL (3.4-4.8); Alkaline Phosphatase 90 U/L (35-104); Anion Gap 8 (5-15); BUN 6 mg/dL (4-19); BUN/Creat Ratio 5.8 RATIO (10-20); Calcium,Total 9.3 mg/dL (7.6-11.0); Carbon Dioxide 28.3 mmol/L (21.0-32.0); Chloride 104 mmol/L (98-108); Cholesterol 170 mg/dL (<=200); Globulin 3.0 g/dL (2.2-4.2); Glucose 120 mg/dL (70-99); Low Density Lipoprotein Calc. 106 mg/dL; Potassium 4.0 mmol/L (3.3-5.1); Triglycerides 77 mg/dL; Very Low Density Lipoprotein 15 mg/dL (5-40); Vitamin D,25 Hydroxy 41.8 ng/mL (30-100); cholesterol:hdl ratio screen 3.45
[2025-09-12 18:15] LABS: Xtra Tube Kwok EXTRA TUBE
[2025-09-22 08:08] LABS: HOMOCYSTEINE 22.7 umol/L (0.0-19.2); Methylmalonic Acid Bld 361 nmol/L (0-378)
== END | disposition home or self-care (01) ==
LOC: POLAB3 10:15
PROVIDERS: PCP Family Medicine Geriatric Medicine; Visit Provider Family Medicine Geriatric Medicine
DX: I10 Essential (primary) hypertension (principal); E55.9 Vitamin D deficiency, unspecified; E78.5 Hyperlipidemia, unspecified; E53.8 Deficiency of other specified B group vitamins; E72.11 Homocystinuria
CPT/HCPCS: 36415; 80053; 80061; 82306; 83090; 83921; 84443; 85025